=== PATIENT | female | born 1955 | race Caucasian/White ===

== ENCOUNTER 2019-11-23 10:00 | Outpatient (RCR) | payer MEDICARE, OTHER, SELFPAY ==
--- NOTE | 2019-11-02 09:47 | PTOPEVAL ---
INITIAL PHYSICAL THERAPY EVALUATION and PLAN OF CARE Thank you for referring Evelyne to [facility] [place] [facility] [place]. Please review, sign, date and return this plan of care ASHELY. She will be seen 2x/wk x 4 wks in physical therapy. I agree with and certify that the following plan of care is medically necessary. Referring Physician Date Admitting Provider: Attending Provider: Jazz Corrales, PA Referring Provider: *PT Outpatient Evaluation Start: 11/02/19 08:32 Freq: Status: Active Protocol: Document 11/02/19 08:32 SUNI (Rec: 11/02/19 09:46 SUNI [id number]) Therapy Assessment Status Assessment Status Assessment Status Evaluation Outpatient Past Medical History Neurological History Hx Neurological Disorders No Significant History Cardiovascular History Hx Hypercholesterolemia Yes Respiratory History Hx Respiratory Disorders No Significant History Gastrointestinal History Hx Gastroesophageal Reflux Disease Yes Genitourinary History Hx Genitourinary Disorders No Significant History Musculoskeletal History Hx Back Pain Yes Hx Orthopedic Surgery Yes: R shoulder surgery - tear present,cleaned out joint Hx Other Musculoskeletal Disorders Yes: occasional neck pain, L OA-injections, R biceps pain Endocrine History Hx Endocrine Disorders No Significant History Evaluation Information Problem Diagnosis R upper extremity pain Onset April 2019 Subjective Information Reached out to catch stove Query Text:As Reported By Patient/ that was being moved out of Family her basement. The stove began to fall off of ángel - quickly reached out to try and catch the stove. Sharp pain felt in R biceps area. Will occasionally feel the discomfort with moving pillow or covers while in bed. When working on phone - will feel discomfort in R shoulder. When lying on L side - will feel pinching sensation in R shoulder area. Diagnostic Tests X-Rays For This Problem No MRI For This Problem No Prior Level of Function Activity Level (Last 3 Months) Occupation retired Hand Dominance Right Medications Home Meds (Include: OTC, RX, Vitamins, prilosec, lipitor, baby Herbals, Dose, Route,and Frequency) aspirin, vitamin D3 Query Text:Home Med Entries Will No Longer Recall From Past Visits. Home Meds Must Be Re-entered With Each Visit.
--- NOTE | 2019-11-23 10:56 | PTOPEVAL ---
PHYSICAL THERAPY DISCHARGE SUMMARY Thank you for referring Evelyne to [facility]. She was seen for 7 visits in PT. She has met most goals set. She is compliant and competent with her HEP. Will d/c her from PT at this time. I agree with Evelyne's discharge from PT. Referring Physician Date Admitting Provider: Attending Provider: Jazz Corrales, PA Referring Provider: *PT Outpatient Evaluation Start: 11/02/19 08:32 Freq: Status: Active Protocol: Document 11/23/19 09:46 SUNI (Rec: 11/23/19 10:55 SUNI [id number]) Therapy Assessment Status Assessment Status Assessment Status Discharge Evaluation Information Problem Subjective Information Evelyne reports still having R Query Text:As Reported By Patient/ anterior soreness discomfort Family at times. She will still have discomfort with pulling covers over her with her R UE. No difficulty with HEP. Pain Assessment Timing of Pain Assessment Timing of Pain Assessment Assessment Pain Scale Pain Scale Used Numeric (1 - 10) Self Report Pain Assessment Right Upper Arm(s) Reported Pain Level 1 Current Pain Intensity 1 Lowest Pain Intensity 0 Greatest Pain Intensity 3 Pain Score Pain Score 1: Self Report Upper Extremity Range of Motion Scapular/ Shoulder Range of Motion Bilateral Reason Not Measured WNL/Right Scapular/Shoulder Range of Motion full R shoulder/g-h jt AROM Comments remains present Upper Extremity Muscle Strength Testing Scapular/Shoulder Bilateral Shoulder Flexion Strength 5 Normal Shoulder Extension Strength 5 Normal Shoulder Abduction Strength 5 Normal Shoulder Medial Rotation Strength 5 Normal Shoulder Lateral Rotation Strength 5 Normal Shoulder Strength Comments some R biceps region discomfort still present with resisted R ER PT Clinical Summary Clinical Summary Protocol: PTEVCODE Clinical Summary Quick DASH 18.2% Evelyne has maintained full R g-h jt ROM, gained R g-h jt and scapular strength, and has maintained functional abilities. She is at end point with PT at this time. She is compliant and competent with HEP which she is to continue performing.
== END 2020-01-01 16:05 | disposition home or self-care (01) ==
LOC: ANHHIPT 10:00
PROVIDERS: Visit Provider Physician Assistant
DX: M79.601 Pain in right arm (principal); G89.29 Other chronic pain
CPT/HCPCS: 97110; 97140; 97161

== ENCOUNTER → 2020-07-23 08:17 | Outpatient (CLI) | payer MEDICARE, OTHER, SELFPAY ==
--- NOTE | ~2020-07-23 | MR_ITS ---
EXAMINATION: MR shoulder RT wo con DATE: 07/23/2020 09:15 INDICATION: Progressive right shoulder pain and limited range of motion since injury one year prior. TECHNIQUE: Magnetic resonance imaging (MRI) of the right shoulder was performed without intravenous c ontrast. Sequences included axial PD-weighted FS FSE, coronal oblique PD-weighted FS FSE, coronal obl ique T2-weighted FS FSE, sagittal PD-weighted FS FSE, and sagittal T1-weighted SE. COMPARISON: None. FINDINGS: Coracoacromial arch: The acromion undersurface is curved in morphology (type II). The acromion appears thinner than typica l suggesting prior acromioplasty. The coracoacromial ligament is normal. Mild acromioclavicular osteo arthritis with small inferiorly directed osteophytes. Rotator cuff: [place] tracks and magnetic field artifact associated with suture anchors at the greater tuberosity co nsistent with prior rotator cuff repair. There is failure of the repair with complete full-thickness tear of the infraspinatus tendon posterior half of the supraspinatus tendon with partial thickness un dersurface tear of the more anterior supraspinatus tendon. The infraspinatus tear margin is retracted approximately 4-5 cm medially from the greater tuberosity footplate. The teres minor tendon is sheeba l. Mild to moderate subscapularis tendinopathy without discrete tear. There is prominent intramuscula r and epimysial edema at the infraspinatus muscle belly which is retracted medially. No significant f atty atrophy appreciated within the rotator cuff musculature. Biceps tendon, glenoid labrum and glenohumeral cartilage: Tenodesis of the long head of the biceps tendon which is anchored at the cephalad aspect of the inter tubercular groove. The more distal tendon remains normal. Glenohumeral osteoarthritis with partial th ickness cartilage loss without degenerative subarticular changes at the glenoid and with mild irregul arity to the articular cortex slightly anteromedial to the apex of the humeral head. Superior glenoid labrum appears small posterior labrum appears diminutive to absent consistent with history of prior labral tear and subsequent debridement. Fluid: Small glenohumeral joint effusion with extension of fluid through the full-thickness rotator cuff tea r into the subacromial/subdeltoid bursa and subsequently into the acromioclavicular joint space. Ther e is thickened synovium at the axillary recess of the joint space. No discrete loose osteochondral nelli dies identified. Bones: There is posterior superior subluxation of the humeral head with respect to the glenoid with secondar y narrowing of the subacromial space. No fracture. There is an 11 x 11 x 13 mm region of increased fl uid signal with low signal intensity rim suggesting degenerative subarticular cystic change underlyin g the anterosuperior rim of the glenoid. Marrow signal is otherwise normal with no fracture or pathol ogic marrow replacing process. IMPRESSION: 1. Postoperative change of prior acromioplasty and rotator cuff repair with recurrent full-thickness tear of the infraspinatus and posterior supraspinatus tendons. 2. Small superior and diminutive to absent posterior glenoid labrum consistent with prior tear and daniels bsequent debridement. 3. Mild acromioclavicular and mild glenohumeral osteoarthritis with moderate grade chondromalacia the glenoid and high-grade chondral malacia near the apex of the humeral head. 4. Intact appearing bicipital tenodesis. Reviewed, dictated and finalized at location B. IMPRESSION: 1. Postoperative change of prior acromioplasty and rotator cuff repair with rec urrent full-thickness tear of the infraspinatus and posterior supraspinatus ten dons. 2. Small superior and diminutive to absent posterior
== END ==
PROVIDERS: Visit Provider Orthopaedic Surgery
DX: S46.011D Strain of muscle(s) and tendon(s) of the rotator cuff of right shoulder, subsequent encounter (principal); X58.XXXD Exposure to other specified factors, subsequent encounter; M19.011 Primary osteoarthritis, right shoulder
CPT/HCPCS: 73221

== ENCOUNTER 2021-01-14 09:00 | Outpatient (RCR) | payer MEDICARE, OTHER, SELFPAY ==
--- NOTE | 2020-10-22 15:56 | PTOPEVAL ---
INITIAL PHYSICAL THERAPY EVALUATION and PLAN OF CARE Thank you for referring Evelyne Lowry to [facility].? Evelyne is scheduled to be seen for physical therapy? 2x/week for 4 weeks. Please review, sign, date and return this plan of care ASHELY. I agree with and certify that the following plan of care is medically necessary. Referring Physician Date Admitting Provider: Attending Provider: Phan Art MD Referring Provider: *PT Outpatient Evaluation Start: 10/22/20 14:39 Freq: Status: Active Protocol: Document 10/22/20 14:35 SUNI (Rec: 10/22/20 15:55 SUNI [id number]) Therapy Assessment Status Assessment Status Assessment Status Evaluation Outpatient Past Medical History Past Medical History Source of Past Medical History Recalled from Previous Visit, Confirmed with Patient/Family Neurological History Hx Neurological Disorders No Significant History Cardiovascular History Hx Hypercholesterolemia Yes Respiratory History Hx Respiratory Disorders No Significant History Gastrointestinal History Hx Gastroesophageal Reflux Disease Yes Genitourinary History Hx Genitourinary Disorders No Significant History Musculoskeletal History Hx Back Pain Yes Hx Orthopedic Surgery Yes: R shoulder surgery - tear present,cleaned out joint Hx Other Musculoskeletal Disorders Yes: occasional neck pain, L OA-injections, R biceps pain Endocrine History Hx Endocrine Disorders No Significant History Evaluation Information Problem Diagnosis s/p R reverse shoulder arthroplasty Onset 10/01/2020 Subjective Information Took sling off 10/17/2020 - Query Text:As Reported By Patient/ doing okay with it off - will Family get some soreness - will ice it when this happens. Sleeping - okay - will wake up if arm gets in the wrong position - can go back to sleep okay. Soreness when wakes up - goes away within 1/ 2 hour. Some difficulty with tucking shirt in, pulling pants up. 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
--- NOTE | 2020-11-10 12:25 | PCPTNOTE ---
Patient called & cancelled scheduled appointment this date due to inclimate weather.
--- NOTE | 2020-11-17 14:34 | PTOPEVAL ---
PHYSICAL THERAPY RE-EVALUATION and UPDATED PLAN OF CARE Thank you for referring Evelyne Tang to [facility] [place].? She is scheduled to be seen for physical therapy?2x/week for 6 weeks. She is making progress towards initial goals set. Please review, sign, date and return this updated plan of care ASHELY. I agree with and certify that the following plan of care is medically necessary. Referring Physician Date Admitting Provider: Attending Provider: Phan Art MD Referring Provider: Therapy Assessment Status Assessment Status Assessment Status Re-evaluation Evaluation Information Problem Diagnosis s/p R reverse shoulder arthroplasty Subjective Information Evelyne saw MD/surgeon - he is Query Text:As Reported By Patient/ pleased with her progress. Family New order received. Pain Assessment Self Report Pain Assessment Right Shoulder(s) Reported Pain Level 1 Lowest Pain Intensity 1 Greatest Pain Intensity 3 Upper Extremity Range of Motion Scapular/ Shoulder Range of Motion Right Shoulder Flexion - Active 92 Shoulder Flexion - Passive 146 Scapular/Shoulder Range of Motion ER in neutral - 63 - active Comments passive flexion - on reciprocal pulleys Supine lying - active 140 deg flexion - passive 146 PT Clinical Summary Clinical Summary Protocol: PTEVCODE PT Clinical Summary SPADI - Pain score - 26% Disability score - 36% Total score - 32% Evelyne is progressing s/p R TSA with pain reduction and ROM gains with flexion and ER. Increased gains made with PROM in R g-h jt flexion as compared with active ROM gains . ER in within MD parameters. She is doing well with capsular strengthening. New MD orders were received this date and will continue to progress as per protocol. PT Services Indicated Yes Rehabilitation Potential Good Patient/Caregiver's Personal Goals for regain use of R UE Rehabilitation Potential Barriers to Goal Achievements None Support Requirements For Optimal None [place] Patient/Caregiver Informed of Benefits/ Yes Risks of Rehabilitation Patient/Caregiver Participated in Plan Yes of Care Patient/Caregiver Agreed with Problem Yes List/POC/Goals Tr
--- NOTE | 2020-11-19 08:31 | PCPTNOTE ---
Patient called & cancelled scheduled appointment for tomorrow due to needing to go for 2nd COVID vaccine.
--- NOTE | 2020-12-22 16:49 | PTOPEVAL ---
PHYSICAL THERAPY RE-EVALUATION/PROGRESS NOTE Thank you for referring Evelyne Lowry to [facility].? Evelyne has been seen x 16 visits. She has made ROM, strength, and functional gains with R UE/shoulder. Please advise if you wish for further PT following upcoming MD visit. If further treatment is desired - I will send a new plan of care for signature. Referring Physician Date Admitting Provider: Attending Provider: Phan Art MD Referring Provider: Therapy Assessment Status Assessment Status Assessment Status Re-evaluation Evaluation Information Problem Diagnosis s/p R reverse shoulder arthroplasty Subjective Information Evelyne states that she was Query Text:As Reported By Patient/ able to mop the floor for a Family little bit due to discomfort, then stops. Still unable to make bed or bean picker a cat. But she is able to use R UE on stair handrail as well as hang up items. Hurts to shake out blankets - points to biceps region. Now able to use mouse on computer better. Pain Assessment Timing of Pain Assessment Timing of Pain Assessment Assessment Pain Scale Pain Scale Used Numeric (1 - 10) Self Report Pain Assessment Right Shoulder(s) Reported Pain Level 0 Pain Description Sharp Lowest Pain Intensity 0 Greatest Pain Intensity 4 Pain Score Pain Score 0: Self Report Upper Extremity Range of Motion Scapular/ Shoulder Range of Motion Right Shoulder Flexion - Active 128 Shoulder Flexion - Passive 158 Shoulder Extension - Active 55 Shoulder Abduction - Active 90 Shoulder Medial Rotation - Active 45 Shoulder Lateral Rotation - Active 70 Shoulder Lateral Rotation - Active back of head Query Text:Reach Behind the Head Scapular/Shoulder Range of Motion ER in neutral - 68 - active Comments passive flexion - on reciprocal pulleys Supine lying - active 155 deg flexion Left Shoulder Flexion - Active 160 Shoulder Extension - Active 65 Shoulder Abduction - Active 165 Shoulder Medial Rotation - Active T8 Query Text:Reach Behind the Back Shoulder Lateral Rotation - Active T3 Query Text:Reach Behind the Head Scapular/Shoulder Range of Motion ER in neutral - 80 Comments Upper Extremity Muscle Strength Testing Scapular/Shoulder Right Shoulder Flexion Strength 4- Good - Shoulder Extension Strength 4 Good Shoulder Abduction Strength 4- Good - Sh
--- NOTE | 2021-01-05 10:43 | PCPTNOTE ---
Patient did not show up for scheduled appointment this date. Phone call made - left message.
--- NOTE | 2021-01-05 15:37 | PCPTNOTE ---
PHYSICAL THERAPY UPDATED PLAN OF CARE New orders have been received to continue with PT for Evelyne Tang. Her plan of care has been updated and she will continue to be seen in PT 2x/wk x 4 wks. I agree with and certify that the following plan of care is medically necessary. Referring Physician Date Attending Provider: Phan Art MD
== END 2021-01-20 23:59 | disposition home or self-care (01) ==
LOC: ANHHIPT 09:00
DX: Z48.89 Encounter for other specified surgical aftercare (principal); M75.121 Complete rotator cuff tear or rupture of right shoulder, not specified as traumatic
CPT/HCPCS: 97110; 97140; 97161

== ENCOUNTER 2021-01-29 14:28 | Outpatient (CLI) | payer MEDICARE, OTHER, SELFPAY ==
--- NOTE | ~2021-01-29 | DEXA_ITS ---
Bone Density Report Name: Evelyne Lowry Age: 65 Sex: Female Ethnicity: White Date of : 1955 Indication: postmenopausal; Referring Provider: Antoni, Jazz Study: Bone densitometry was performed. Exam Date: January 29, 2021 Accession number: [id number] Bone Density: Region BMD T-score Z-score Classification AP Spine (L1-L4) 0.908 -1.3 0.7 Osteopenia Femoral Neck (Left) 0.701 -1.3 0.3 Osteopenia Total Hip (Left) 0.835 -0.9 0.5 Normal Total Hip Bilateral Avg 0.797 -1.2 0.2 Osteopenia Femoral Neck (Right) 0.673 -1.6 0.1 Osteopenia Total Hip (Right) 0.759 -1.5 -0.1 Osteopenia World Health Organization criteria for BMD impression classify patients as: Normal (T-score at or above -1.0), Osteopenia (T-score between -1.0 and -2.5), or Osteoporosis (T-score at or below -2.5). 10-year Fracture Risk(1): Major Osteoporotic Fracture 8.8% Hip Fracture 1.0% Reported Risk Factors: [place] (), Neck BMD=0.673, BMI=35.9 (1) FRAX(R) Version 3.08. Fracture probability calculated for an untreated patient. Fracture probability may be lower if the patient has received treatment. Clinical Information Provided by Patient: Has used the following medications: Calcium Patient maximum height was 62 Menopause Age: 48 No regular weight bearing exercise Does not regularly consume dairy products Drinks caffeinated beverages Onset of menses at age 13 Number of children 2 Impression: The patient has low bone mass, based on the Right Femoral Neck T-score. The patient has an estimated ten-year risk of hip fracture of 1% and an estimated ten-year risk of major fracture of 8.8%, based on the WHO FRAX algorithm. Discussion: BONE DENSITY IS LOW AT ONE OR MORE SKELETAL SITES. This patient's lowest T-score is low at one or more skeletal sites. It meets the World Health Organization's (WHO) criteria for ?low bone mass? (T-score between -1.0 and -2.5). The patient's 10-year risk of fracture as calculated by FRAX is less than the threshold where pharmacological therapy is recommended by the National Osteoporosis Foundation (NOF). However, all treatment decisions require clinical judgment and consideration of individual patient factors, including patient preferences, comorbidities, previous drug use, risk factors not captured in the FRAX model (e.g., frailty, falls, vitamin D deficiency, increased bone turnover, interval significant decline in bone density) and possible under or overestimation of fracture risk by FRAX. The patient should follow a healthful lifestyle (good nutrition with adequate calcium and vitamin D, and appropriate weight-bearing exercise). Follow-Up: Consider repeating this study in 2 to 3 years to reassess this patient's status, or sooner if there is some new clinical indication. Reported by: MAN on
--- NOTE | ~2021-01-29 | MM_ITS ---
EXAMINATION: MM screening alexandru BI w maddy HISTORY: Screening TECHNIQUE: Craniocaudal and mediolateral oblique 3-D tomosynthesis images were obtained and synthetic 2-D images were generated. CAD analysis was submitted and interpreted. COMPARISON: No prior mammogram is available for comparison at this institution. BREAST PARENCHYMAL COMPOSITION: There are scattered areas of fibroglandular density. FINDINGS: There is no evidence of suspicious mass, calcification, or architectural distortion to sugg est malignancy in either breast. There has been no suspicious interval change. IMPRESSION: 1. No mammographic evidence of malignancy. 2. Recommend routine screening mammography in one year. BI-RADS Category 1: Negative Reviewed, dictated and finalized at location A.
== END 2021-01-29 14:29 | disposition home or self-care (01) ==
LOC: ANHIMG 14:36
PROVIDERS: Visit Provider Physician Assistant
DX: Z12.31 Encounter for screening mammogram for malignant neoplasm of breast (principal); M85.88 Other specified disorders of bone density and structure, other site; Z78.0 Asymptomatic menopausal state; M85.852 Other specified disorders of bone density and structure, left thigh; M85.851 Other specified disorders of bone density and structure, right thigh
CPT/HCPCS: 77063; 77067; 77080

== ENCOUNTER 2021-02-04 10:00 | Outpatient (RCR) | payer MEDICARE, OTHER, SELFPAY ==
--- NOTE | 2021-01-21 07:53 | PCPTNOTE ---
The treatment documented on this account is a continuation of the treatment documented on visit number [id number]. Please see documentation on both accounts to view progress. The Plan of Care has been transitioned and updated within the new V#. I have addressed and agree with the discipline specific Problems, Interventions, and Goals for the current certification period. Completed interventions, outcomes, and problems have been marked as Inactive to facilitate the copying of the Care plan routine for recurring accounts.
--- NOTE | 2021-01-26 10:37 | PCPTNOTE ---
Patient did not show to appointment this date. Patient said last week she would see us on Tuesday instead of Tuesday. Patient might have been confused on schedule. Patient was call and voicemail was left by office staff.
--- NOTE | 2021-02-04 13:18 | PTOPEVAL ---
PHYSICAL THERAPY DISCHARGE SUMMARY Thank you for referring Evelyne Tang to [facility].? Evelyne has been seen x 24 visits. She is needing to cancel the remainder of her PT visits due to family matters. She has increased active R g-h jt ROM and strength, decreased pain levels, and increase with functional abilities. Most goals have been met. She is being [facility] to [facility] which she performs well. I agree with and certify that the following plan of care is medically necessary. Referring Physician Date Admitting Provider: Attending Provider: Phan Art MD Referring Provider: Therapy Assessment Status Assessment Status Assessment Status Discharge Evaluation Information Problem Diagnosis s/p R reverse TSA Onset 10/01/2020 Subjective Information Evelyne stated that she needs Query Text:As Reported By Patient/ to cancel the rest of her Family appointments due to needing to help take care of her mother. She said that she is doing well with her exercises at home. Still having some difficulty with activities such as throwing bread to the birds, lifting heavier objects , etc with R UE. Pain Assessment Self Report Pain Assessment Right Shoulder(s) Reported Pain Level 1 Lowest Pain Intensity 0 Greatest Pain Intensity 2 Upper Extremity Range of Motion Scapular/ Shoulder Range of Motion Right Shoulder Flexion - Active 145 Shoulder Extension - Active 68 Shoulder Abduction - Active 122 Shoulder Medial Rotation - Active 75 Shoulder Lateral Rotation - Active 65 Scapular/Shoulder Range of Motion neutral ER - 68 deg Comments Upper Extremity Muscle Strength Testing Scapular/Shoulder Right Shoulder Flexion Strength 3+ Fair + Shoulder Extension Strength 5 Normal Shoulder Abduction Strength 3+ Fair + Shoulder Medial Rotation Strength 5 Normal Shoulder Lateral Rotation Strength 3+ Fair + Palpation Assessment Palpation Palpation decreased soft tissue tension with R upper quadrant PT Clinical Summary Clinical Summary Protocol: PTEVCODE PT Clinical Summary SPADI - Pain score - 14% Disability score - 10% total score - 12% Evelyne has made further gains with active R g-h jt ROM, strength, and function. She is compliant and performs HEP well which she is to continue performing on a regular basis.
== END 2021-02-16 11:04 | disposition home or self-care (01) ==
LOC: ANHHIPT 10:00
DX: Z48.89 Encounter for other specified surgical aftercare (principal); M75.121 Complete rotator cuff tear or rupture of right shoulder, not specified as traumatic
CPT/HCPCS: 97110

== ENCOUNTER 2022-03-22 08:00 | Outpatient (RCR) | payer MEDICARE, OTHER, SELFPAY ==
--- NOTE | 2022-01-27 14:10 | PTOPEVAL ---
PHYSICAL THERAPY INITIAL EVALUATION. Thank you for referring Evelyne Lowry to [facility].? The patient is scheduled to be seen for therapy? 2x/week for 8 weeks. Please review, sign, date and return this plan of care ASHELY. I agree with and certify that the following plan of care is medically necessary. 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 She Family states she received home health PT for 1.5 weeks after surgery and has not done any other therapy outside of that. She states other people tell her that her knee shoulder bend more than it does. Pt states she has not been doing her exercises since finishing home health. Prior Level of Function Pain Assessment Self Report Pain Assessment Left Knee(s) Reported Pain Level 1 Pain Description Aching Pain Frequency Acute Lowest Pain Intensity 1 Greatest Pain Intensity 4 Pain Aggravating Factors Prolonged Position,Stair Climbing Lower Extremity Range of Motion Limitations Pain,Soft Tissue Restriction Knee Range of Motion Left Knee Flexion Range of Motion - Active 80 Knee Flexion Range of Motion - Passive 94 Knee Extension Range of Motion - Active -3 Knee Range of Motion Comments R knee active ROM 0-134 Palpation Assessment Palpation tender just inferior to the medial joint line. Pt stands and rest in supine with hips in B ER. Lack of patellar mobility on L LE. Keloid scar formation Balance Assessment 5 Time Sit to Stand Time in Seconds 12 5 Time Sit to Stand Comments without use of the UEs, L LE Query Text:Normative Data: If Greater placed anterior Gait Assessment Gait Pattern Antalgic Gait Gait Pattern Observed Trunk Lateral Lean - Right Other Gait Observations L LE hip external rotation and abduction during swing phase, decrease gait speed, step length, and stride length. Limited knee flexion during swing Safety Assessment Factors A
--- NOTE | 2022-02-15 09:56 | PTOPEVAL ---
PHYSICAL THERAPY PROGRESS REPORT. Thank you for referring Evelyne Lowry to [facility] [place].? The patient is scheduled to be seen for therapy? 2x/week for 4 weeks. Please review, sign, date and return this plan of care ASHELY. I agree with and certify that the following plan of care is medically necessary. 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 Shes Family states she can bend her knee more, but knows it is still less than what she shoulder be doing. Her pain is well controlled, she states she only has pain when she is working on increasing knee flexion. Pt reports good compliance with her HEP. Pt states getting in and out of her truck has gotten easier. She would like to increase the distance she can walk her dog , also be able to return to softball and bowling. Pain Assessment Self Report Pain Assessment Left Knee(s) Reported Pain Level 0 Greatest Pain Intensity 0 Lower Extremity Range of Motion Limitations Pain,Soft Tissue Restriction Knee Range of Motion Left Knee Flexion Range of Motion - Active 97 Knee Flexion Range of Motion - Passive 112 Knee Extension Range of Motion - Active -2 Knee Range of Motion Comments R knee active ROM 0-134 Lower Extremity Muscle Strength Testing Gross Lower Extremity Strength B LE grossly 4/5 L knee flexion extension 4-/5 L glute med 3/5 R glute med 3/5 Palpation Assessment Palpation Reports decreased sensation on the lateral aspect of the anterior knee joint. 1cm scap on the distal 1/3 of the incision, pt states she leaned on her truck the wrong way. Incision looks pink, clean, and keloid. Balance Assessment Time in Seconds 11 5 Time Sit to Stand Comments Initially: 12s without use of Query Text:Normative Data: If Greater the UEs, L LE placed anterior Than 15 Seconds, 74% Increase Risk for 02/15/22: 11s without use of Recurrent Falls UEs, LE places equal Gait Assessme
--- NOTE | 2022-03-22 08:40 | PTOPEVAL ---
PHYSICAL THERAPY PROGRESS REPORT AND DISCHARGE SUMMARY. Thank you for referring Evelyne Lowry to [facility] [place]Note 2[facility]? The patient is to be discharged from skilled therapy services at this time. Please review, sign, date and return this plan of care ASHELY. I agree with and certify that the following plan of care is medically necessary. 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 She reports continued difficultly and awkward feelings going down stairs. She reports mild medial knee stiffness first this in the morning, this decreases quickly with movement. Pt states she was able to get onto to the floor and clean yesterday. Pain Assessment Pain Score 0: Self Report Knee Range of Motion Left Knee Flexion Range of Motion - Active 110 Knee Flexion Range of Motion - Passive 122 Knee Extension Range of Motion - Active -2 Knee Extension Range of Motion - Passive 0 Knee Range of Motion Comments R knee active ROM 0-134 Lower Extremity Muscle Strength Testing Gross Lower Extremity Strength skyler hip flexion 5/5 skyler knee flexion/extension 4+/ 5 L glute med 4/5 R glute med 4+/5 Palpation Assessment Palpation Continues to report decreased sensation on the lateral aspect of the anterior knee joint. Incision looks pink, clean, and keloid. Mild tenderness reports along the length of her incision site Balance Assessment 5 Time Sit to Stand Comments Initially: 12s without use of Query Text:Normative Data: If Greater the UEs, L LE placed anterior Than 15 Seconds, 74% Increase Risk for 02/15/22: 11s without use of Recurrent Falls UEs, LE places equal 03/22/22: 11s without the use of UEs, equal weight distribution Gait Assessment Ambulation Assistive Devices None Gait Pattern Observed Trunk Lateral Lean - Right Other Gait Observations Good gait speed, with equal step length, and stride length
== END 2022-03-22 09:21 | disposition home or self-care (01) ==
LOC: ANHHIPT 08:00
DX: Z47.1 Aftercare following joint replacement surgery (principal); Z96.652 Presence of left artificial knee joint
CPT/HCPCS: 97110; 97112; 97140; 97161; 97530

== ENCOUNTER 2022-05-19 08:43 | Outpatient (CLI) | payer MEDICARE, OTHER, SELFPAY ==
--- NOTE | ~2022-05-19 | MM_ITS ---
EXAMINATION: MM screening alexandru BI w maddy HISTORY: Screening TECHNIQUE: Craniocaudal and mediolateral oblique 3-D tomosynthesis images were obtained and synthetic 2-D images were generated. CAD analysis was submitted and interpreted. COMPARISON: 01/29/2021 BREAST PARENCHYMAL COMPOSITION: The breasts are almost entirely fatty. FINDINGS: There is no evidence of suspicious mass, calcification, or architectural distortion to sugg est malignancy in either breast. There has been no suspicious interval change. IMPRESSION: 1. No mammographic evidence of malignancy. 2. Recommend routine screening mammography in one year. BI-RADS Category 1: Negative Reviewed, dictated and finalized at location A.
== END 2022-05-19 08:44 | disposition home or self-care (01) ==
PROVIDERS: PCP Physician Assistant; Visit Provider Physician Assistant
DX: Z12.31 Encounter for screening mammogram for malignant neoplasm of breast (principal)
CPT/HCPCS: 77063; 77067

== ENCOUNTER 2024-01-09 09:30 | Outpatient (RCR) | payer MEDICARE, OTHER, SELFPAY ==
--- NOTE | 2023-11-30 09:25 | PTOPEVAL1 ---
Assessment and note entered by Natacha Venegas, PT Evaluation Information Assessment Status Evaluation Diagnosis left knee pain and instabilty Therapy condition pain in left knee, stiffness left knee Oth. abnormalities of gait and mobility Reported Pain Level Pain Score 0,0: Self Report Assessment PT Clinical Summary Pt presents with c/o left knee pain and weakness. History of TKA ~2 years ago without complications, history of back pain as well. Reports functionally difficulty with stairs, and standing/ walking more than 15 minutes due to weakness and pain. Pt demo's decreased hip strength, decreased patellar mobility, decreased flexibility on LLE compared to RLE, abnormal ambulation patterns with occasional tripping that is self corrected at the moment. Pt will greatly benefit from physical therapy in order to address deficits, improve pain and function to allow safest, highest level of independence. Plan of Care Interventions Electrical Stimulation,Gait Training,Hot Pack/Cold Pack,Manual Therapy,Neuro Re-education, Therapeutic Activities,Therapeutic Exercise,Self- Care/Home Management PT Services Indicated Yes Treatment Frequency and 2x weekly x 6 weeks Duration These treatments will address the objective and functional deficits as defined above. The patient will be advanced safely and appropriately in order for the patient to progress towards his/her prior level of function. Additional exercises will be introduced and as well as a comprehensive home exercise program upon discharge, if needed, ?to ensure carryover of functional gains achieved in the clinic. This treatment plan has been reviewed and agreement upon by the patient.
--- NOTE | 2023-11-30 09:25 | OPREHPOC ---
Outpatient Therapy Plan of Care This is a Multidisciplinary Plan of Care that may contain components documented by all disciplines (PT, OT, and ST.) PT Problem 1 PT Problem #1 Knowledge Deficit PT Goal 1 Goal Pt will be independent in HEP Pt will verbalize understanding of diagnosis and prognosis Target Visit 8 PT Problem 2 PT Problem #2 Pain PT Goal 1 Goal Pt will report greatest pain level at 3/10 or less to improve ADLs and activities Target Visit 8 PT Goal 2 Goal Pt will report resolution of pain to return to PLOF Target Visit 12 PT Problem 3 PT Problem #3 Impaired Range of Motion PT Goal 1 Goal Pt will demo AROM 0-130 Left knee Target Visit 12 PT Problem 4 PT Problem #4 Impaired Strength PT Goal 1 Goal Pt will demo strength of 4/5 in all tested planes Target Visit 8 PT Goal 2 Goal Pt will demo strength of 4+/5 in all tested planes Target Visit 12 PT Problem 5 PT Problem #5 Impaired Gait PT Goal 1 Goal Pt will demo appropriate gait with appropriate dorsiflexion, appropriate clearance, and no tripping in 2 min walk test Target Visit 12 PT Goal 2 Goal Pt will demo ability to ascend and descend 14 steps with bilat railings and no guarding Target Visit 12
--- NOTE | 2024-01-10 08:38 | PTOPDC ---
Assessment and note entered by Natacha Venegas, PT Assessment Status Discharge Diagnosis left knee pain and instabilty Subjective Information Pt reports hasn't tried long distances for her knee yet. Got down on the floor and was able to get back up from the floor herself. Is doing a little better standing long periods, thinks can stand about an hour before has to sit down. States is now able ot go up basement steps without pulling myself up with the hand rail Self-perceived: 25% improved Reported Pain Level Pain Score 0,0: Self Report Assessment PT Clinical Summary Pt has attended therapy consistently for her left knee and back pain and mobility deficit. Pt's pain in both has reduced to at worst 3/10, she reports she has easier time standing and walking, but hasn't tested herself for long distance walking as of yet. Her tests show improved ROM, strength, flexibility, and improved ambulation with less balance deficit overall. She has partially met her objective goals, however reports only 25% improvement and her LEGS score is roughly the same . She states she understands her home exercises and the updates made and reports understanding when to return to therapy if she does not continue to progress independently. Thus patient is being discharged from POC. PT Services Indicated Knee and back pain POC completed
== END 2024-01-10 14:12 | disposition home or self-care (01) ==
LOC: ANHHIPT 09:30
PROVIDERS: PCP Physician Assistant; Visit Provider Physician Assistant
DX: M25.562 Pain in left knee (principal); G89.29 Other chronic pain
CPT/HCPCS: 97110; 97112; 97116; 97140; 97162; 97750

== ENCOUNTER 2024-03-12 10:25 | Outpatient (CLI) | payer MEDICARE, OTHER, SELFPAY ==
--- NOTE | ~2024-03-12 | MM_ITS ---
EXAMINATION: MM screening alexandru BI w maddy HISTORY: Screening TECHNIQUE: Craniocaudal and mediolateral oblique 3-D tomosynthesis images were obtained and synthetic 2-D images were generated. CAD analysis was submitted and interpreted. COMPARISON: Comparison to multiple prior studies sequentially, with oldest reviewed study dated 02/2021. BREAST PARENCHYMAL COMPOSITION: Not Dense: Breast are almost entirely fatty. FINDINGS: There is no evidence of suspicious mass, calcification, or architectural distortion to sugg est malignancy in either breast. There has been no suspicious interval change. IMPRESSION: 1. No mammographic evidence of malignancy. 2. Recommend routine screening mammography in one year. BI-RADS Category 1: Negative Reviewed, dictated and finalized at location B.
== END 2024-03-12 10:26 | disposition home or self-care (01) ==
LOC: ANHIMG 10:28
PROVIDERS: PCP Physician Assistant; Visit Provider Physician Assistant
DX: Z12.31 Encounter for screening mammogram for malignant neoplasm of breast (principal)
CPT/HCPCS: 77063; 77067

== ENCOUNTER 2024-08-20 12:30 | Outpatient (RCR) | payer MEDICARE, OTHER, SELFPAY ==
--- NOTE | 2024-05-30 16:40 | PTOPEVAL1 ---
Assessment and note entered by Natacha Venegas, PT Evaluation Information Assessment Status Evaluation Diagnosis low back ICD-10 Condition Codes (PT) Pain in low back M54.50,Difficulty Walking R26.2, R26.9,Weakness R53.1 Onset with the last few months Subjective Information Pt reports fell and landed on her back. Had helped getting up from some gentlemen coming straight forward. States was in bed multiple days because of pain. Went to Urgent care, x-rays were negative for fracture. Pt reports when laying or sitting pain is improved . Standing and walking increases pain. Can stand about 5 minutes before needing to sit down. Pain is across both sides of the lumbar spine, denies pain into the legs. Hasn't been able to do her exercises because of her back pain Notes her friend walks behind her wiht arms out to catch her just in case she falls. Daughter in law had to grab onto her shirt [place] times [place] the [place] recently to get her to slow down because her feet were going too fast sometimes Reported Pain Level Pain Score 5: Self Report Assessment PT Clinical Summary Pt presents for therapy for low back pain after a fall a few months ago. Reports is unable to stand and walk more than 5 minutes now without needing to sit. Pt demo's decreased lumbar ROM in multiple planes, abnormal pelvic alignment, decreased core and lumbopelvic strength, increased tone skyler paraspinals, abnormal gait and balance deficits effecting her safety and functional mobility. Pt will greatly benefit from physical therapy to address deficits, improve pain, improve balance and gait to optimize safe and functional independence. Plan of Care Interventions Electrical Stimulation,Gait Training,Hot Pack/Cold Pack,Manual Therapy,Mechanical Traction,Patient/ Caregiver Educati,Therapeutic Activities, Therapeutic Exercise,Self-Care/Home Management, Ultrasound PT Services Indicated Yes Treatment Frequency and 2x weekly x 20 visits Duration These treatments will address the objective and functional deficits as defined above. The patient will be advanced safely and appropriately in order for the patient to progress towards his/her prior level of function. Additional exercises will be introduced and as well as a comprehensive home exercise program upon discharge, if needed, ?to ensure carryover of functional gains achieved in the clinic. This treatment plan has been reviewed and agreement upon by the patient.
--- NOTE | 2024-05-30 16:40 | OPREHPOC ---
Outpatient Therapy Plan of Care This is a Multidisciplinary Plan of Care that may contain components documented by all disciplines (PT, OT, and ST.) PT Problem 1 PT Problem #1 Knowledge Deficit PT Goal 1 Goal / Goal Update Pt will be independent in HEP Pt will verbalize understanding of diagnosis and prognosis Target Visit 10 PT Problem 2 PT Problem #2 Pain PT Goal 1 Goal / Goal Update Pt will report greatest pain level at 3/10 or less to improve ADLs and activities Target Visit 10 PT Goal 2 Goal / Goal Update Pt will report resolution of pain to return to PLOF Target Visit 20 PT Problem 3 PT Problem #3 Impaired Range of Motion PT Goal 1 Goal / Goal Update Pt will demo full ROM lumbar spine in all planes Target Visit 10 PT Problem 4 PT Problem #4 Impaired Balance PT Goal 1 Goal / Goal Update Pt will demo Tinetti score of 20 or greater Target Visit 10 PT Goal 2 Goal / Goal Update Pt will demo 5x sit to stand test of 15 seconds or less without use of UEs Target Visit 20
--- NOTE | 2024-06-29 11:19 | OPREHPOC ---
Outpatient Therapy Plan of Care This is a Multidisciplinary Plan of Care that may contain components documented by all disciplines (PT, OT, and ST.) PT Problem 1 PT Problem #1 Knowledge Deficit PT Goal 1 Goal / Goal Update Pt will be independent in HEP Pt will verbalize understanding of diagnosis and prognosis Target Visit 10 Progress Met PT Problem 2 PT Problem #2 Pain PT Goal 1 Goal / Goal Update Pt will report greatest pain level at 3/10 or less to improve ADLs and activities Target Visit 10 Progress Met PT Goal 2 Goal / Goal Update Pt will report resolution of pain to return to PLOF Target Visit 20 PT Problem 3 PT Problem #3 Impaired Range of Motion PT Goal 1 Goal / Goal Update Pt will demo full ROM lumbar spine in all planes - progressed from 50 to 75% Target Visit 10 Progress Partially Met PT Problem 4 PT Problem #4 Impaired Balance PT Goal 1 Goal / Goal Update Pt will demo Tinetti score of 20 or greater Target Visit 10 Progress Met PT Goal 2 Goal / Goal Update Pt will demo 5x sit to stand test of 15 seconds or less without use of UEs - use of RUE on first attempt Target Visit 20 Progress Partially Met PT Problem 5 PT Problem #5 Impaired Vestibular Syste PT Goal 1 Goal / Goal Update Pt will demo no signs or symptoms with Thomas Hallpike testing R or L Target Visit 20 PT Goal 2 Goal / Goal Update Pt will demo ability to personnel training officer partial tandem stance on firm surface with eyes closed to demo improvement in vestibular system and balance. Target Visit 20
--- NOTE | 2024-06-29 11:25 | PTOPPROG ---
Assessment and note entered by Natacha Venegas, PT Evaluation Information Assessment Status Progress Diagnosis low back ICD-10 Condition Codes (PT) Pain in low back M54.50,Difficulty Walking R26.2, R26.9,Weakness R53.1,BPPV right ear H81.11 Onset with the last few months Subjective Information Pt reports feels 30% back to normal with her back. Is able to stand 20 minutes prior to sitting down, usually when standing and talking to neighbor or bowling, recently went down to a 12 lb ball. Reports did fine after last treatment session, woke up with no pain this morning. Feels like is walking better. Friend is no longer walking behind patient with her arms out to catch pt for balance deficits. Does report will get dizzy with turning over in bed. Assessment PT Clinical Summary Pt has attended therapy consistently for her back pain and gait/mobility deficit. She reports significant improvement in her pain levels, with greatest pain rating decreasing from 8/10 to 3/10. She reports ability to stand 20 minutes before needing to sit, which is increased from 5 min at evaluation. Her balance scores have also improved with 11 seconds for 5x sit to stand down from 23 seconds, and Tinetti score improved from 17 to 20 bringing her to moderate risk for falls. Pt demo's dizziness today with turning and reports prior history of BPPV. She states she gets dizzy with turning over in bed as well. Vestibular testing performed with (+) symptoms with R Thomas-Hallpike testing. Pt will benefit from continued therapy with addition of WET ROOM WORKER maneuvers to address BPPV R ear, continue strengthening and stability training for lumbar spine, and improve overall mobility and balance for a safer and more functional level of independence. Plan of Care Interventions Electrical Stimulation,Gait Training,Hot Pack/Cold Pack,Manual Therapy,Mechanical Traction,Patient/ Caregiver Educati,Therapeutic Activities, Therapeutic Exercise,Self-Care/Home Management, Ultrasound Other Interventions WET ROOM WORKER PT Services Indicated Yes Treatment Frequency and Cont 2x weekly x 10 visits Duration These treatments will address the objective and functional deficits as defined above. The patient will be advanced safely and appropriately in order for the patient to progress towards his/her prior level of function. Additional exercises will be introduced and as well as a comprehensive home exercise program upon discharge, if needed, ?to ensure carryover of functional gains achieved in the clinic. This treatment plan has been reviewed and agreement upon by the patient.
--- NOTE | 2024-07-06 10:33 | PCPTNOTE ---
Rehab department called and cancelled patient due to staffing shortage
--- NOTE | 2024-08-20 13:12 | PTOPDC ---
Assessment and note entered by Natacha Venegas, PT Evaluation Information Assessment Status Discharge Diagnosis low back ICD-10 Condition Codes (PT) Pain in low back M54.50,Difficulty Walking R26.2, R26.9,Weakness R53.1,BPPV right ear H81.11 Onset with the last few months Subjective Information Pt reports back pain is about 40% improved overall . Pt reports as far as remembering to keep her belly tight with standing is going so-so. States has not been standing that much. Pt reports walking is a little bit better. Reported Pain Level Pain Score 0,0: Self Report Additional Pain Score Comments Hasn't tested standing long periods to assess how intense pain will get in back. Assessment PT Clinical Summary Pt has attended therapy consistently for her low back pain and gait abnormality and more recently BPPV. She reports feeling 40% improved in her back , shows lumbar ROM 75% without pain, increases in lumbopelvic strength, and reduction of pain to 2/ 10 at greatest report. However she cont to be unable to stand longer than 20 minutes due to her back getting painful and tired. As far as gait abnormality, when patient is focused, she is able to improve her base of support and clear her toes much better. Even so, she is unable to multitask while performing LE tasks such as talking and biking or walking. Has had to stop her LE movement or exercise while answering questions in prior sessions. She does report no longer having dizziness with rolling in bed though this is new. Considering her multi-tasking and poor coordination, and continued difficulty with balance and ambulation despite the progress made, patient may benefit from a neurology consult in order to address/ rule out neurological issues effecting patient function. Plan of Care PT Services Indicated No
== END 2024-08-20 13:51 | disposition home or self-care (01) ==
LOC: ANHHIPT 12:30
PROVIDERS: PCP Physician Assistant; Visit Provider Physician Assistant
DX: M54.50 Low back pain, unspecified (principal); H81.11 Benign paroxysmal vertigo, right ear
CPT/HCPCS: 95992; 97014; 97032; 97110; 97112; 97116; 97140; 97162; 97530; 97750; G0283

== ENCOUNTER 2025-03-13 10:35 | Outpatient (CLI) | payer MEDICARE, OTHER, SELFPAY ==
--- NOTE | ~2025-03-13 | MM_ITS ---
EXAMINATION: MM screening alexandru BI w maddy HISTORY: Screening TECHNIQUE: Craniocaudal and mediolateral oblique 3-D tomosynthesis images were obtained and synthetic 2-D images were generated. CAD analysis was submitted and interpreted. COMPARISON: Comparison to multiple prior studies sequentially, with oldest reviewed study dated 02/2021. BREAST PARENCHYMAL COMPOSITION: Not dense: There are scattered areas of fibroglandular density. FINDINGS: There is no evidence of suspicious mass, calcification, or architectural distortion to sugg est malignancy in either breast. There has been no suspicious interval change. IMPRESSION: 1. No mammographic evidence of malignancy. 2. Recommend routine screening mammography in one year. BI-RADS Category 1: Negative Reviewed, dictated and finalized at location A.
--- OUTSIDE RECORDS SUMMARY | 2025-03-13 12:10 | XMS_ITS | Clinical Summary ---
Author Organization [facility] Address [address], [address] [place] [address] Phone Care Team Providers Care Sodium Methylate Operator Name Role Phone Jazz Corrales PAC Primary Care Provider [phone] Lowell Scahfer DO Unavailable [phone] Allergies Active Allergy Reactions Criticality Noted Date Comments Amoxicillin-Pot Clavulanate Vomiting 06/04/2024 Barium Sulfate Rash,Unknown Medium 12/30/2006 Reaction(s): Rash, itching Medications atorvastatin (LIPITOR) 40 MG Tablet Take 40 mg by mouth. 05/17/2024 Active Cholecalciferol (Vitamin D) 2000 UNIT Tablet Take 2,000 Units by mouth. 02/25/2023 Active omeprazole (PriLOSEC) 40 MG CAPSULE DELAYED RELEASE Take 40 mg by mouth. 11/17/2023 Active aspirin 81 MG Chewable Tablet Take 81 mg by mouth daily. 05/17/2024 Active clobetasol (TEMOVATE) 0.05 % Cream Apply. 02/25/2023 Active Calcium Carb-Cholecalcif franklin (CALCIUM 500 + D PO) Take 1 Tablet by mouth. Active diphenhydrAMINE (Benadryl Allergy) 25 MG Capsule Take 25 mg by mouth. Active [place]-3 Fatty Acids (FISH OIL PO) Take by mouth. Active Vitamins-Lipotro pics (LIPO-FLAVONOID PLUS PO) Take by mouth. Active Active Problems Problem Noted Date Diagnosed Date Elevated blood pressure reading 10/09/2024 Family History Relation Name Status Comments Child 1 Alive Child 2 Alive Father Mother Alive Social History Tobacco Use Types Packs/Day Years Used Date Smoking Tobacco: Former Cigarettes Smokeless Tobacco: Never Tobacco Cessation:Counseling Given: Not Answered Alcohol Use Standard Drinks/Week Comments Yes 0 (1 standard drink = 0.6 oz pur e alcohol) 1 drink weekly Comments Unknown Sex and Gender Information Value Date Recorded Sex Assigned at Not on file Legal Sex Female 11:44 AM CDT Gender Identity Not on file Sexual Orientation Not on file Last Filed Vital Signs Vital Sign Reading Time Taken Comments Blood Pressure 142/82 10/09/2024 10:49 AM DIRECTOR CUSTOM Pulse 73 10/09/2024 10:49 AM DIRECTOR CUSTOM Temperature 36.9 C (98.4 F) 10/09/2024 10:49 AM DIRECTOR CUSTOM Respiratory Rate 16 10/09/2024 10:49 AM DIRECTOR CUSTOM Oxygen Saturation 97% 10/09/2024 10:49 AM DIRECTOR CUSTOM Inhaled Oxygen Concentration - - Weight 89.9 kg (198 lb 3.2 oz) 10/09/2024 10:49 AM DIRECTOR CUSTOM Height 157.5 cm (5' 2) 10/09/2024 10:49 AM DIRECTOR CUSTOM Body Mass Index 36.25 10/09/2024 10:49 AM DIRECTOR CUSTOM Plan of Treatment Upcoming Encounters Date Type Department Care Team (Late st Contact Info) Description 04/09/2025 10:30 AM CDT Lab [facility] [address] [phone] Lab, [facility] 04/09/2025 10:45 AM CDT Office Visit [facility] [address] [phone] Lowell Schafer, [address] [place] [phone] Health Maintenance Due Date Last Done Comments DEXA Bone Density 1955 Hepatitis C Virus (HCV) Screening 1955 Cologuard 1998 Colonoscopy 1998 Colorectal Cancer Screening 1998 Immunochemical Fecal Occult Blood 1998 Mammogram 05/19/2023 05/19/2022 SARS-COV-2 Immunization ( season) 2024 06/16/2024, 06/16/2024, 07/13/2023, Additional history exists TdaP Immunization Completed 08/15/2014 Hepatitis B Immunization Completed 018, 02/08/2018, 01/09/2018 Zoster Immunization Completed 04/09/2019, 01/09/2018, 08/15/2014 Pneumococcal Immunization (50+ years) Completed 10/22/2019, 05/22/2018 Influenza Immunization Completed , 07/13/2023, 07/20/2022, Additional history exists Respiratory Syncytial Virus (RSV) Immunization (Adult) Completed 06/16/2024 Human Papillomavirus (HPV) Immunization Aged Out No longer eligible based on patient's age to complete this topic Meningococcal Immunization (ACWY) Aged Out No longer eligible based on patient's age to complete this topic Rotavirus Immunization Aged Out No lo nger eligible based on patient's age to complete this topic Insurance MEDICARE [employer] Care Teams Sodium Methylate Operator Relationship Specialty Start Date End Date Jazz Corrales, PAC [address] [facility] [address] [place] [address] PCP - General Physician Ultrasound Specialist 05/25/24 Lowell Schafer, [address] [place] [phone] Consulting Physician Oncology 07/02/24
--- OUTSIDE RECORDS SUMMARY | 2025-03-13 12:10 | XMS_ITS | Clinical Summary ---
Author Organization [facility] Address [address] [place] [address] Care Team Providers Care Pole Framer Name Role Phone Jazz Corrales Primary Care Provider [phone] Allergies Active Allergy Reactions Criticality Noted Date Comments Amoxicillin-Pot Clavulanate Vomiting 09/20/20 19 Barium Sulfate Unknown 09/20/2019 Medications atorvastatin (LIPITOR) 40 MG tablet Take 1 tablet (40 mg total) by mouth nightly at bedtime. Active aspirin 81 MG chewable tablet Chew 1 tablet (81 mg total) by mouth daily. 4 05/17/20 25 Active Vitamin D3 (VITAMIN D) 50 mcg tablet Take 1 tablet (2,000 Units total) by mouth daily. 6 Active diphenhydrAMINE (BENADRYL) 25 MG capsule Take 1 capsule (25 mg total) by mouth nightly as needed for Allergies. Active omeprazole (PRILOSEC) 40 MG capsule Take 1 capsule (40 mg total) by mouth daily. 5 Active clobetasol (TEMOVATE) 0.05 % cream Apply topically 2 (two) times daily. 5 Active oyster shell calcium 500 mg, elemental, (OSCAL) 500 MG tablet Take 1 tablet (500 mg total) by mouth daily. Active cefdinir (OMNICEF) 300 MG Cap capsule Take 1 capsule (300 mg total) by mouth 2 (two) times daily for 9 days. 18 capsule 5 03/19/20 25 Active vitamin B-12 (CYANOCOBALAMIN ) 500 MCG tablet Take 1 tablet (500 mcg total) by mouth daily. 30 tablet 1 5 Active ferrous gluconate (FERGON) 324 (38 FE) MG tablet Take 1 tablet (324 mg total) by mouth daily with breakfast. 30 tablet 1 5 Active Active Problems Problem Noted Date Diagnosed Date Urinary tract infection 03/09/2025 UTI (urinary tract infection) 03/08/2025 Encounters Date Type Department Care Team Description 03/07/2025 9:19 PM CDT - 03/10/2025 12:38 PM CDT Hospital Encounter [facility] Med/Surg [address] [place] [address] Adonis Foley MD Verma, Seema, MD Harris, Michael, MD Littlejohn, GLO Pat Altered Mental Status Discharge Disposition: Home or Self Care (Routine Discharge) 03/07/2025 Travel from Last 3 Months Social History Tobacco Use Types Packs/Day Years Used Date Smoking Tobacco: Former Smokeless Tobacco: Never Alcohol Use Standard Drinks/Week Comments No 0 (1 standard drink = 0.6 oz pur e alcohol) B1300 Health Literacy Answer Date Recor ded How often do you need to hav e someone help you when you read instructions, pamphlets, or other written material from your doctor or pharmacy? Never 03/08/2025 [facility] Utilities Answer Date Recorded In the past 12 months has [facility] [employer], or water [employer] threatened to shut off services in your home? No 03/08/2025 Humiliation, Afraid, Rape, and Kick questionnair e Answer Date Recorded Within the last year, have y ou been afraid of your partner or ex-partner? No 03/08/2025 Within the last year, have y ou been humiliated or emotionally abused in other ways by your partner or ex-partner? No Within the last year, have y ou been kicked, hit, slapped, or otherwise physically hurt by your partner or ex-partner? No 03/08/2025 Within the last year, have y ou been raped or forced to have any kind of sexual activity by your partner or ex-partner? No 03/08/2025 AUDIT-C Answer Date Recorded Frequency of Alcohol Consumption Never 09/20/2019 Average Number of Drinks Not on file 019 Frequency of Binge Drinking Not on file 08/27 Overall Financial Resource Strain (CARDIA) Answe r Date Recorded How hard is it for you to pa y for the very basics like food, housing, medical care, and heating? Not hard at all 03/08/2025 [facility] Occupat ional [facility] - Occupational Stress Questionnaire Answer Date Recorded Do you feel stress - tense, restless, nervous, or anxious, or unable to sleep at night because your mind is troubled all the time - these days? Not at all 03/08/2025 Hunger Vital Sign Answer Date Recorded Within the past 12 months, y ou worried that your food would run out before you got the money to buy more. Never true 03/08/20 25 Within the past 12 months, t he food you bought just didn't last and you didn't have money to get more. Never true 03/08/2025 PRAPARE - Transportation Answer Date Re corded In the past 12 months, has l ack of transportation kept you from medical appointments or from getting medications? No 02/24 In the past 12 months, has l ack of transportation kept you from meetings, work, or from getting things needed for daily living? No 03/08/2025 Housing Stability Vital Sign Answer Kuldeep e Recorded In the last 12 months, was t here a time when you were not able to pay the mortgage or rent on time? No 03/08/2025 In the past 12 months, how m any times have you moved where you were living? 0 03/08/2025 At any time in the past 12 m [facility], were you homeless or living in a jail (including now)? No 03/08/2025 Comments No Sex and Gender Information Value Date Recorded Sex Assigned at Female 03/07/2025 9:33 PM CDT Legal Sex Female 7:21 PM CDT Gender Identity Female 03/07/2025 9:33 PM CDT Sexual Orientation Straight 03/07/2025 9: 33 PM CDT Last Filed Vital Signs Vital Sign Reading Time Taken Comments Blood Pressure 150/71 03/10/2025 12:15 PM CDT Pulse 59 03/10/2025 12:15 PM CDT Temperature 36.4 C (97.5 F) 03/10/2025 12:15 PM CDT Respiratory Rate 18 03/10/2025 12:15 PM CDT Oxygen Saturation 97% 03/10/2025 12:15 PM CDT Inhaled Oxygen Concentration - - Weight 87.1 kg (192 lb 0.3 oz) 03/09/2025 2:20 A M CDT Height 157.5 cm (5' 2) 03/07/2025 9:30 PM CDT Body Mass Index 35.12 03/07/2025 9:30 PM CDT Plan of Treatment Health Maintenance Due Date Last Done Comments Colorectal Cancer Screening Colonoscopy (10 Years) 1955 Hepatitis C 1971 Annual Medicare Wellness Visit 2018 Dexa Scan (General) 2018 Mammogram Screening 05/19/2024 05/19/2022 COVID-19 Vaccine (2023- season) 2024 06/16/2024, 07/13/2023, 07/20/2022, Additional history exists DTaP, Tdap and Td Vaccines (2 - Td or Tdap) 08/15/2024 08/15/2014, 08/02/2003, 07/27/1995 Zoster Vaccines Completed 04/09/2019, 12/25, 08/15/2014 Pneumococcal Vaccine: 50+ Years Completed 10/22/2019, 05/22/2018 RSV Immunization or 60+ Years Completed 06/16/2024 Meningococcal B Vaccine Aged Out No l onger eligible based on patient's age to complete this topic Meningococcal Vaccine Aged Out No rj jasmyne eligible based on patient's age to complete this topic RSV Immunizations Under 20 Months Aged Out No longer eligible based on patient's age to complete this topic Goals Goal Patient Goal Type Associated Problems Recent Progress Patient-Stated? 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 Procedure Name Priority Date/Time Associated Diagnosis Comments CT LUMB SPINE WO CON Today 03/08/2025 1:[address] HEAD WO CON Today 03/08/2025 1:29 PM CDT MAGNESIUM Routine 03/08/2025 6:12 AM CDT COMPREHENSIVE METABOLIC PANEL Routine 03/08/2025 6:12 AM CDT CBC W/DIFF AUTOMATED Routine 03/08/2025 6:12 AM CDT IRON SAT PANEL (IRON,IBC,%SAT) Routine 03/08/2025 6:11 AM CDT VITAMIN B12 / FOLATE Routine 03/08/2025 6:11 AM CDT LACTIC ACID W REFLEX (SEPSIS) TIMED 03/07/2025 11:23 PM CDT URINE BACTERIA CULTURE STAT 11:08 PM CDT URINALYSIS, AUTO, COMPLETE STAT 03/07/2025 11:08 PM CDT XR CHEST PORTABLE STAT 03/07/2025 9:4 1 PM CDT CULTURE, BACTERIA, BLOOD STAT 03/07/2025 9:36 PM CDT LACTIC ACID W REFLEX (SEPSIS) STAT 03/07/2025 9:26 PM CDT CULTURE, BACTERIA, BLOOD STAT 03/07/2025 9:25 PM CDT COMPREHENSIVE METABOLIC PANEL STAT 03/07/2025 9:25 PM CDT CBC W/DIFF AUTOMATED STAT 03/07/2025 9:25 PM CDT from Last 3 Months Results * CT LUMB SPINE WO CON (03/08/2025 1:29 PM CDT) Anatomical Region Laterality Modality Spine Computed Tomogra phy 03/09/2025 7:27 AM CDT Impressions 03/09/2025 7:34 AM CDT IMPRESSION: Multiple levels of neural foraminal stenosis with compression of nerve roots. This is especially seen at L2-S1. Mild to moderate spinal canal stenosis. Referred By: Interpreted By: Nicolas Juan MD, 03/09/2025 7:27 AM Narrative 03/09/2025 7:34 AM CDT [facility] [address] [facility]. [place] [id number] Examination: CT LUMB SPINE WO CON Exam time: 03/08/2025 1:25 PM Reason For Exam: Low back pain Comparison: None Technique: Axial CT scan of the lumbar spine was obtained without the use of IV contrast agent. Subsequent coronal and sagittal reformatted sequences are created for evaluation. A dose lowering technique was used for this procedure, which may include, but is not limited to, dose reduction technique, automated exposure control, iterative reconstruction, ALARA (As Low As Reasonably Achievable), or Image Gently techniques. Findings: There are 5 nonrib-bearing lumbar type vertebral bodies. Lumbar vertebral body heights and alignment are preserved. No acute fracture or dislocation. No destructive osseous lytic or sclerotic lesions. No significant paravertebral structural abnormalities. L5-S1: Facet arthrosis. Posterior broad-based disc bulge. No significant spinal stenosis. Compression of right-sided exiting nerve root at the neural foramen. Mild left-sided neural foraminal stenosis. L4-L5: Facet arthrosis. Disc bulge. AP thecal sac diameter about 7 mm. Compressed appearance of bilateral nerve roots at the neural foramina. L3-L4: Diffuse disc bulge. Compressed appearance of bilateral nerve roots at neural foramina. No significant thecal sac stenosis. L2-L3: Diffuse disc bulge. Compressed appearance of the bilateral nerve roots at neural foramina. AP thecal sac diameter mildly narrowed to 8.5 mm AP. L1-L2: Moderately narrowed appearance of the right neural foramen with a diffuse disc bulge. No significant spinal canal stenosis. T12-L1: Mild disc bulge and disc flattening. Moderate right neural foraminal stenosis. No significant spinal canal stenosis. T11-T12: Disc flattening with no significant stenosis. Bilateral SI joint osteoarthritis. Parapelvic cyst appearance of bilateral kidneys with nonspecific bilateral perinephric stranding. Arterial and aortic wall calcifications without AAA. Small uterine fibroid. Procedure Note Nicolas Juan MD - 03/09/2025 [facility] [address] [place] [address] Examination: CT LUMB SPINE WO CON Exam time: 03/08/2025 1:25 PM Reason For Exam: Low back pain Comparison: None Technique: Axial CT scan of the lumbar spine was obtained without the useof IV contrast agent. Subsequent coronal and sagittal reformattedsequences are created for evaluation. A dose lowering technique was usedfor this procedure, which may include, but is not limited to, dosereduction technique, automated exposure control, iterative reconstruction,ALARA (As Low As Reasonably Achievable), or Image Gently techniques. Findings: There are 5 nonrib-bearing lumbar type vertebral bodies. Lumbar vertebralbody heights and alignment are preserved. No acute fracture ordislocation. No destructive osseous lytic or sclerotic lesions. Nosignificant paravertebral structural abnormalities. L5-S1: Facet arthrosis. Posterior broad-based disc bulge. No significantspinal stenosis. Compression of right-sided exiting nerve root at theneural foramen. Mild left-sided neural foraminal stenosis. L4-L5: Facet arthrosis. Disc bulge. AP thecal sac diameter about 7 mm.Compressed appearance of bilateral nerve roots at the neural foramina. L3-L4: Diffuse disc bulge. Compressed appearance of bilateral nerve rootsat neural foramina. No significant thecal sac stenosis. L2-L3: Diffuse disc bulge. Compressed appearance of the bilateral nerveroots at neural foramina. AP thecal sac diameter mildly narrowed to 8.5mm AP. L1-L2: Moderately narrowed appearance of the right neural foramen with adiffuse disc bulge. No significant spinal canal stenosis. T12-L1: Mild disc bulge and disc flattening. Moderate right neuralforaminal stenosis. No significant spinal canal stenosis. T11-T12: Disc flattening with no significant stenosis. Bilateral SI joint osteoarthritis. Parapelvic cyst appearance of bilateral kidneys with nonspecific bilateralperinephric stranding. Arterial and aortic wall calcifications withoutAAA. Small uterine fibroid. IMPRESSION: Multiple levels of neural foraminal stenosis with compression of nerveroots. This is especially seen at L2-S1. Mild to moderate spinal canal stenosis. Referred By: Interpreted By: Nicolas Juan MD, 03/09/2025 7:27 AM us Bright Tineo MD CT Final Result * CT HEAD WO CON (03/08/2025 1:29 PM CDT) Anatomical Region Laterality Modality Head Computed Tomogra phy 03/08/2025 2:39 PM CDT Impressions 03/08/2025 2:53 PM CDT =====IMPRESSION:===== No evidence of acute intracranial hemorrhage, mass effect, or midline shift. . Possibility of normal pressure hydrocephalus is raised. Please correlate with symptomatology. Ordered By: BRIGHT TINEO Interpreted By: Obie Sauceda, 03/08/2025 2:39 PM Narrative 03/08/2025 2:53 PM CDT [place] [id number] [place] [address] EXAMINATION: CT OF THE HEAD WITHOUT CONTRAST EXAM DATE/TIME: 03/08/2025 1:25 PM REASON FOR EXAM: Altered mental status COMPARISON: None TECHNIQUE: Noncontrast CT examination of the head was performed with axial images obtained. A dose lowering technique was used for this procedure, which may include, but is not limited to, dose reduction technique, automated exposure control, iterative reconstruction, ALARA (As Low As Reasonably Achievable), or Image Gently techniques. FINDINGS: No evidence of scalp hematoma or significant soft tissue swelling. Limited evaluation of the paranasal sinuses and mastoids is unremarkable. Intracranially, no evidence of hemorrhage, mass effect, or midline shift. Mild small vessel ischemic change and brain volume loss. Moderate intracranial vascular calcifications. Prominence of the ventricular system is greater than the prominence of the subarachnoid spaces. Possibility of normal pressure hydrocephalus is raised. Posterior cranial fossa are unremarkable. Procedure Note Anthony Sauceda MD - 03/08/2025 [facility] [address] [place] [address] EXAMINATION: CT OF THE HEAD WITHOUT CONTRAST EXAM DATE/TIME: 03/08/2025 1:25 PM REASON FOR EXAM: Altered mental status COMPARISON: None TECHNIQUE: Noncontrast CT examination of the head was performed with axialimages obtained. A dose lowering technique was used for this procedure,which may include, but is not limited to, dose reduction technique,automated exposure control, iterative reconstruction, ALARA (As Low AsReasonably Achievable), or Image Gently techniques. FINDINGS: No evidence of scalp hematoma or significant soft tissue swelling. Limited evaluation of the paranasal sinuses and mastoids isunremarkable. Intracranially, no evidence of hemorrhage, mass effect, or midlineshift. Mild small vessel ischemic change and brain volume loss. Moderateintracranial vascular calcifications. Prominence of the ventricular system is greater than the prominence of thesubarachnoid spaces. Possibility of normal pressure hydrocephalus israised. Posterior cranial fossa are unremarkable. =====IMPRESSION:===== No evidence of acute intracranial hemorrhage, mass effect, or midlineshift. . Possibility of normal pressure hydrocephalus is raised. Please correlatewith symptomatology. Ordered By: BRIGHT TINEO Interpreted By: Obie Sauceda, 03/08/2025 2:39 PM us Bright Tineo MD CT Final Result * (ABNORMAL) COMPREHENSIVE METABOLIC PANEL (03/08/2025 6:12 AM CDT) Only the most recent of2 resultswithin the time period is included. GLUCOSE 89 70 - 99 MG/DL 03/08/2025 7:03 AM CDT [facility] BUN 13 7 - 18 MG/DL 03/08/2025 7:03 AM [facility] CREATININE S/P/B 1.00 0.55 - 1.02 MG/DL 03/08/2025 7:03 AM [facility] SODIUM S/P/B 142 136 - 145 MMOL/L 03/08/2025 7:03 AM [facility] POTASSIUM S/P/B 3.8 3.5 - 5.1 MMOL/L 03/08/2025 7:03 AM [facility] CHLORIDE S/P/B 112(H) 100 - 108 MMOL/L 03/08/2025 7:03 AM [facility] CO2 24.6 21 - 32 MMOL/L 03/08/2025 7:03 AM [facility] CALCIUM S/P/B 8.7 8.5 - 10.1 MG/DL 03/08/2025 7:03 AM [facility] BILIRUBIN TOTAL S/P/B 0.9 0.2 - 1.2 MG/DL 03/08/2025 7:03 AM [facility] TOTAL PROTEIN S/P/B 6.2(L) 6.4 - 8.2 G/DL 03/08/2025 7:03 AM [facility] ALBUMIN S/P/B 3.0(L) 3.4 - 5.0 G/DL 03/08/2025 7:03 AM [facility] AST 14(L) 15 - 37 U/L 03/08/2025 7:03 AM [facility] ALT 16 14 - 55 U/L 03/08/2025 7:03 AM [facility] ALKALINE PHOSPHATASE S/P/B 80 50 - 136 U/L 03/08/2025 7:03 AM CDT [facility] ANION GAP 5.4 5 - 15 MMOL/L 03/08/2025 7:03 AM CDT [facility] BUN CREATININE RATIO 13.0 6 - 26 03/08/2025 7:03 AM CDT [facility] A/G RATIO 0.9(L) 1.0 - 2.0 RATIO 03/08/2025 7:03 AM T [facility] GFR ESTIMATE 60(L) >90 ML/MIN/1.7 3 M2 03/08/2025 7:03 AM T [facility] Comment: NOTE: eGFR is not calculated for patients <18 years of age. This is an estimated GFR calculation using the new CKD EPI creatinine equation without race and so does not require a correction factor for race. This estimated GFR should not be used for calculating drug doses. 03/08/2025 6:12 AM CDT us Marline Tapia MD LABORATORY Final Result [facility] [address] [place] [address], [place] [phone] * (ABNORMAL) CBC W/DIFF AUTOMATED (03/08/2025 6:12 AM CDT) Only the most recent of2 resultswithin the time period is included. WBC 7.30 4.4 - 11.0 x10'3/uL 03/08/2025 7:00 AM CDT [facility] RBC 3.79(L) 4.50 - 5.10 x10'6/uL 03/08/2025 7:00 AM T [facility] HGB 11.4(L) 12.3 - 15.3 G/DL 03/08/2025 7:00 AM T [facility] HCT 34.9(L) 35.9 - 44.6 % 03/08/2025 7:00 AM CDT [facility] MCV 92.1 80.0 - 96.0 FL 03/08/2025 7:00 AM CDT [facility] MCH 30.1 25.3 - 30.9 PG 03/08/2025 7:00 AM CDT [facility] MCHC 32.7 31.0 - 34.1 G/DL 03/08/2025 7:00 AM CDT [facility] RDW 12.9 12.4 - 15.1 % 03/08/2025 7:00 AM CDT [facility] PLT 219 151 - 353 x10'3/uL 03/08/2025 7:00 AM T [facility] MPV 11.2 9.6 - 12.0 FL 03/08/2025 7:00 AM T [facility] NEUTROPHILS % 66.0 42.1 - 71.9 % 03/08/2025 7:24 AM CDT [facility] LYMPHOCYTES % 21.5 15.8 - 45.0 % 03/08/2025 7:24 AM T [facility] BASOPHILS 0.4 0.0 - 1.3 % 03/08/2025 7:24 AM T [facility] EOSINOPHILS 2.2 0.0 - 5.6 % 03/08/2025 7:24 AM T [facility] MONOCYTES % 9.6 5.7 - 12.5 % 03/08/2025 7:24 AM CDT [facility] IMMATURE GRANS % 0.3 0.0 - 0.5 % 03/08/2025 7:24 AM CDT [facility] ABS. NEUTROPHILS 4.82 1.40 - 6.00 x10'3/uL 03/08/2025 7:24 AM CDT [facility] ABS. LYMPHOCYTES 1.57 0.80 - 4.70 x10'3/uL 03/08/2025 7:24 AM CDT [facility] PLT MORPH. NORMAL 03/08/2025 7:24 AM CDT [facility] RBC MORPHOLOGY NORMAL 03/08/2025 7:24 AM CDT [facility] WBC MORPHOLOGY NORMAL 03/08/2025 7:24 AM CDT [facility] 03/08/2025 6:12 AM CDT us Marline Tapia MD LABORATORY Final Result Performing Organization Address City/[facility]/ZIP Co de Phone Number [facility] [address] [place] [address], [place] [phone] * MAGNESIUM (03/08/2025 6:12 AM CDT) MAGNESIUM 2.0 1.8 - 2.4 MG/DL 03/08/2025 7:03 AM CDT [facility] 03/08/2025 6:12 AM CDT us Marline Tapia MD LABORATORY Final Result Performing Organization Address City/[facility]/ZIP Co de Phone Number [facility] [address] [place] [address], [place] [phone] * VITAMIN B12 / FOLATE (03/08/2025 6:11 AM CDT) VITAMIN B12 S/P/B 298 193 - 986 PG/ML 03/08/2025 12:48 PM CDT [facility] FOLATE 9.6 8.6 - 58.9 NG/ML 03/08/2025 12:48 PM CDT [facility] 03/08/2025 6:11 AM CDT us Bright Tineo MD LABORATORY Final Result [facility] [address] [place] [address], [place] [phone] * (ABNORMAL) IRON SAT PANEL (IRON,IBC,%SAT) (03/08/2025 6:11 AM CDT) IRON 17(L) 50 - 170 MCG/DL 03/08/2025 12:23 PM CDT [facility] IRON BINDING CAPACITY 175(L) 250 - 450 MCG/DL 03/08/2025 12:23 PM CDT [facility] IRON SATURATION 10(L) 20 - 55 % 12:23 PM CDT [facility] 03/08/2025 6:11 AM CDT us Bright Tineo MD LABORATORY Final Result Performing Organization Address [facility] Co de Phone Number [facility] [address] [place] [address], [place] [phone] * LACTIC ACID W REFLEX (SEPSIS) (03/07/2025 11:23 PM CDT) Only the most recent of2 resultswithin the time period is included. LACTIC ACID VENOUS 1.0 0.4 - 2.0 MMOL/L 03/07/2025 11:54 PM CDT [facility] 03/07/2025 11:2 3 PM CDT us Adonis Foley MD LABORATORY Final Resu lt Performing Organization Address City/[facility]/ZIP Co de Phone Number [facility] [address] [place] [address], [place] [phone] * (ABNORMAL) CULTURE URINE (03/07/2025 11:08 PM CDT) SPEC DESCRIPTION URINE CLEAN CATCH 03/07/2025 11:07 PM CDT [facility] SPECIAL REQUESTS NO SPECIAL REQUEST 03/07/2025 11:07 PM CDT [facility] CULTURE RESULT >100,000 COL/ML ESCHERICHIA COLI (A) 03/10/2025 7:[address] [facility] URINE SPECIMEN OBTAINED BY CLEAN CATCH PROCEDURE / Unknown 03/07/2025 11:08 PM CDT 03/07/2025 11:13 PM CDT Narrative Organism Antibiotic Method Susceptibility Escherichia coli AMPICILLIN SANDRITA (VITEK) >=32: Resistant Escherichia coli AMPICILLIN/SULBACTAM SANDRITA (VITEK) 16: Intermediate Comment:INTERMEDIATE Escherichia coli CEFTRIAXONE SANDRITA (VITEK) <=1: Sensitive Escherichia coli CEFTAZIDIME SANDRITA (VITEK) <=1: Sensitive Escherichia coli CEFAZOLIN SANDRITA (VITEK) <=4: Sensitive Escherichia coli ESBL SANDRITA (VITEK) NEG: Sensitive Escherichia coli NITROFURANTOIN SANDRITA (VITEK) <=16: Sensitive Escherichia coli GENTAMICIN SANDRITA (VITEK) <=1: Sensitive Escherichia coli LEVOFLOXACIN SANDRITA (VITEK) <=0.12: Sensitive Escherichia coli PIPRACIL/TAZO SANDRITA (VITEK) <=4: Sensitive Escherichia coli TRIMETH-SULFAMETH. SANDRITA (VITEK) <=20: Sensitive Adonis Foley MD MICROBIOLOGY - GENERAL ORD ERABLES Final Result [facility] [address] [place] [address], [place] [phone] [facility] [address] [place] [address], [place] [phone] * (ABNORMAL) URINALYSIS, AUTO, COMPLETE (03/07/2025 11:08 PM CDT) COLOR (U) YELLOW 03/07/2025 11:37 PM [facility] TRANSPARENCY CLOUDY 03/07/2025 11:37 PM [facility] SPECIFIC GRAVITY (U) 1.010 1.000 - 1.030 03/07/2025 11:37 PM [facility] U PH 6.0 5.0 - 9.0 03/07/2025 11:37 PM [facility] LEUKOCYTES (U) 3+(A) NEGATIVE 03/07/2025 11:37 PM [facility] NITRITES POSITIVE(A) NEGATIVE 03/07/2025 11:37 PM [facility] PROTEIN RANDOM (U) TRACE(A) NEGATIVE 03/07/2025 11:37 PM [facility] GLUCOSE (U) NEGATIVE NEGATIVE 03/07/2025 11:37 PM [facility] KETONES MG/DL (U) NEGATIVE NEGATIVE 03/07/2025 11:37 PM [facility] BILIRUBIN (U) NEGATIVE NEGATIVE 03/07/2025 11:37 PM [facility] BLOOD (U) 3+(A) NEGATIVE 03/07/2025 11:37 PM [facility] WBC/HPF 25-50 0 - 5 /HPF 03/07/2025 11:37 PM [facility] RBC/HPF 10-25 0 - 5 /HPF 03/07/2025 11:37 PM [facility] EPI/HPF RARE /HPF 03/07/2025 11:37 PM [facility] BACTERIA (U) MANY /HPF 03/07/2025 11:37 PM [facility] URINE SPECIMEN OBTAINED BY CLEAN CATCH PROCEDURE / Unknown 03/07/2025 11:08 PM CDT us Adonis Foley MD URINE ORDERABLES Final Res ult [facility] [address] [place] [address], [place] [phone] * XR CHEST PORTABLE (03/07/2025 9:41 PM CDT) Anatomical Region Laterality Modality Chest Radiographic Netta ging 03/07/2025 10:2 4 PM CDT Impressions 03/07/2025 10:26 PM CDT IMPRESSION: No acute findings. Referred By: Interpreted By: Sammy Harrison DO, 03/07/2025 10:24 PM Narrative 03/07/2025 10:26 PM CDT [facility] [address] [facility] [place] [address] EXAMINATION: X-ray chest HISTORY: Confusion. Shortness of breath. Concern for sepsis. COMPARISON: None. TECHNIQUE: Portable AP view chest. FINDINGS: The heart size and vascular markings appear within normal limits. There is no mediastinal shift. No evidence of pneumonia, pleural effusion, or pneumothorax. There are small benign calcified nodules and lymph nodes. No visible acute findings. Procedure Note Sammy Harrison DO - 03/07/2025 [facility] [address] [facility] [place] [address] EXAMINATION: X-ray chest HISTORY: Confusion. Shortness of breath. Concern for sepsis. COMPARISON: None. TECHNIQUE: Portable AP view chest. FINDINGS: The heart size and vascular markings appear within normal limits. Thereis no mediastinal shift. No evidence of pneumonia, pleural effusion, orpneumothorax. There are small benign calcified nodules and lymph nodes.No visible acute findings. IMPRESSION: No acute findings. Referred By: Interpreted By: Sammy Harrison DO, 03/07/2025 10:24 PM Adonis Foley MD GENERAL IMAGING Final Resu lt * CULTURE, BACTERIA, BLOOD (03/07/2025 9:36 PM CDT) Only the most recent of2 resultswithin the time period is included. SPEC DESCRIPTION BLOOD 03/07/2025 9:25 PM CDT [facility] SPECIAL REQUESTS NO SPECIAL REQUEST 03/07/2025 9:25 PM CDT [facility] CULTURE RESULT NO GROWTH 5 DAYS 03/13/2025 11:[address] [facility] BLOOD SPECIMEN OBTAINED FOR BLOOD CULTURE / Unknown 03/07/2025 9:36 PM CDT 03/07/2025 10:00 PM CDT Adonis Foley MD MICROBIOLOGY - GENERAL ORD ERABLES Final Result 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
--- OUTSIDE RECORDS SUMMARY | 2025-03-13 12:11 | XMS_ITS | Encounter Summary ---
Author Organization [facility] Healthcare Address [address] [place] [address] Care Team Providers Care Press Feeder Broomcorn Name Role Phone Jazz Corrales Primary Care Provider [phone]- [phone] Reason for Visit * Reason Onset Date Comments Post Hospitalization 03/12/2025 Encounter Details Date Type Department Care Team (Late st Contact Info) Description 03/12/2025 Telephone [facility] Family Medicine [address] [place] [address] Jazz Corrales PA [address] [place] [address] Post Hospitalization Social History Tobacco Use Types Packs/Day Years Used Date Smoking Tobacco: Former Cigarettes 2 34 1 974 - 2008 Smokeless Tobacco: Never Alcohol Use Standard Drinks/Week Comments Yes 1 (1 standard drink = 0.6 oz pur e alcohol) AUDIT-C Answer Date Recorded Q1: How often do you have a drink containing alc ohol? 2-4 times a month 01/28/2025 Q2: How many drinks containi ng alcohol do you have on a typical day when you are drinking? 1 or 2 01/28/2025 Q3: How often do you have si x or more drinks on one occasion? Never 01/28/2025 PHQ-2 Answer Date Recorded PHQ-2 Total Score (If total score is 3 or more points, staff should administer the PHQ-9) 0 01/28/2025 Comments No Sex and Gender Information Value Date Recorded Sex Assigned at Not on file Legal Sex Female 7:35 AM DENITRATOR Gender Identity Female 08/31/2021 1:50 PM DENITRATOR Sexual Orientation Not on file documented as of this encounter Miscellaneous Notes * Telephone Encounter - Mena Sharif LPN - 03/13/2025 8:51 AM CDT Called and LVM for Ellie to return call. Please transfer through to office. * Telephone Encounter - Iliana King - 03/12/2025 3:[address] Ellie Healy returned Sharon's call. Please call her to discuss pt's recent hospitalization. documented in this encounter Plan of Treatment Not on file documented as of this encounter Visit Diagnoses Not on filedocumented in this encounter Care Teams Press Feeder Broomcorn Relationship Specialty Start Date End Date Jazz Corrales PA [address] [place] [address] PCP - General Internal Medicine 03/06/19 documented as of this encounter
--- OUTSIDE RECORDS SUMMARY | 2025-03-13 12:11 | XMS_ITS | Referral Summary ---
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 Name Role Phone Jazz Corrales Primary Care Provider [phone]- [phone] Encounters Date Type Department Care Team Description 03/12/2025 Telephone [facility] [address] [facility] [address] [place] [phone] Jazz Corrales PA Post Hospitalization 03/11/2025 Telephone [facility] [address] [place] [phone] Jazz Corrales PA 03/08/2025 Telephone [facility] [address] [place] [address] Road [address] [place] [phone] Jazz Corrales PA Appointment Request 02/13/2025 Results Follow-Up [facility] [address] [place] [address] Road [address] [place] [phone] Jazz Corrales PA CBC with auto differential, Comprehensive metabolic panel, Hemoglobin A1c, Additional followed-up results: 4 01/28/2025 Telephone [facility] [place] [address] [place] [address] aJzz Corrales PA 01/28/2025 11:30 AM CDT Office Visit [facility] [address] [facility] [address] [place] [address] Jazz Corrales PA Medicare annual wellness visit, subsequent (Primary Dx); Breast cancer screening by mammogram; Poor balance; Fatigue, unspecified type; Mixed hyperlipidemia; Other fatigue; Hematuria, unspecified type; Hyperglycemia; Gastroesophageal reflux disease without esophagitis; Lichen sclerosus; Vitamin D deficiency; BMI 36.0-36.9,adult; Morbid obesity (HCC) 01/24/2025 Telephone [facility] [address] [facility] [address] [place] [address] Jazz Corrales PA Medical Question/Miscellaneous from Last 3 Months Allergies Active Allergy Reactions Criticality Noted Date Comments Amoxicillin-Pot Clavulanate Stomach upset,Vomiting Low 12/20/2005 GI upset Barium Sulfate Rash Medium 12/30/2006 Reaction(s): Rash, itching Clavulanic Acid Stomach upset Low 11/14/2018 Stomach/GI Upset Other Rash Medium 11/14/2018 Rash/ Exlax Medications calcium carbonate (CALCIUM 500 ORAL)Indication s:supplement 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 Active diphenhydrAMINE (BENADRYL) 25 mg capsule Take 1 tablet/capsul e (25 mg total) by mouth nightly as needed for allergies Active cholecalciferol (VITAMIN D-3) 2000 unit tabletIndicatio ns:Vitamin D Deficiency Take 1 tablet (2,000 Units total) by 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 90 tablet 2 3 Active aspirin 81 mg chewable tabletIndicatio ns:Prophylactic measure Take 1 tablet (81 mg total) by mouth daily 4 05/17/20 25 Active atorvastatin (LIPITOR) 40 mg tabletIndicatio ns:hyperlipidem ia Take 1 tablet (40 mg total) by mouth nightly 90 tablet 2 5 Active omeprazole (PriLOSEC) 40 mg capsuleIndicati ons:Treatment of Non-Bleeding Gastric Disorder,gerd Take 1 capsule (40 mg total) by 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 90 capsule 2 5 Active clobetasoL (TEMOVATE) 0.05 % creamIndication s:Lichen sclerosus Apply topically 2 (two) times a day 60 g 1 5 Active cefdinir (OMNICEF) 300 mg capsuleIndicati ons:Urinary Tract/Genitouri nary Infection Take 1 capsule (300 mg total) by mouth 2 (two) times a day for 9 days 5 03/20/20 25 Active clobetasoL (TEMOVATE) 0.05 % cream Apply topically 2 (two) times a day 60 g 1 5 03/11/20 25 Discontinu ed(Reorder ) Active Problems Problem Noted Date Diagnosed Date Medicare annual wellness visit, subsequent 02/10 Assessment & Plan (02/10/2025 8:10 PM CDT): Encouraged healthy lifestyle, good nutrition and exercise. Encouraged Calcium and Vitamin D and weight bearing exercise for bone health. Reviewed immunizations. Reviewed age appropirate screenings. Medicare Wellness Documentation is completed within the chart Hyperglycemia 02/10/2025 Assessment & Plan (02/10/2025 8:10 PM CDT): Pre-diabetes/hyperglycemia is a precursor to Dm. Stressed importance of working on diet (decrease your simple sugars and one carbohydrate with each meal) and increase you exercise to achieve weight loss and this will help prevent you from progressing to diabetes. Poor balance 02/10/2025 Assessment & Plan (02/10/2025 8:11 PM CDT): Patient seems to have increased difficulty with balance. She has had good success with physical therapy in the past so new order provided Hematuria 05/22/2024 Assessment & Plan (02/10/2025 8:10 PM CDT): Check urine dip and culture to rule out infection. She states she is had peak if your it for a week or so Increase fluids Assessment & Plan (05/22/2024 3:00 PM CDT): Patient with persistent hematuria. She states it has been there for awhile but she did not make aware of it. Urine dip did show hematuria so will start with Bactrim DS pending culture and sensitivity. Will do a test of cure to make sure completely resolves and follow up closely. If symptoms persist may need additional workup with Urology. Abnormal blood smear 05/22/2024 Assessment & Plan (07/31/2024 7:30 PM ORTHOTIC/PROSTHETIC PRACTITIONER): Continue per Dr. Schafer. Assessment & Plan (05/22/2024 3:02 PM CDT): Addendum: Patient's labs returned and patient was notified on 05/22 that there were myelocytes in her differential. Will make referral to Oncology. The order was connected to this visit since the labs were ordered with this visit. Acquired trigger finger 02/06/2024 Overview (02/06/2024): Will refer to ortho for further eval and treatment. 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 She needs a refill of bupropion, will order through [facility]. She will continue with 21 mg patches for 2 more weeks as planned. Unilateral primary osteoarthritis, left knee Neck pain 07/12/2021 Assessment & Plan (07/12/2021 5:43 PM CDT): Check xrays. Recommend PT. Order provided BMI 36.0-36.9,adult 01/01/2021 Assessment & Plan (01/28/2025 11:58 AM CDT): Discussed the patient's BMI. The BMI is above average. BMI management plan is completed. BMI Follow-up includes: nutrition counseling, exercise counseling and education provided. Assessment & Plan (01/01/2021 10:40 AM CDT): Obesity is unchanged. Discussed the patient's BMI. The BMI is above average. BMI management plan is completed. BMI Follow-up includes: nutrition counseling, exercise counseling and education provided. Breast cancer screening by mammogram 11/01/2020 Assessment & Plan (02/10/2025 8:09 PM CDT): Mammogram order provided Assessment & Plan (07/31/2024 7:31 PM ORTHOTIC/PROSTHETIC PRACTITIONER): Mammogram order provided Assessment & Plan (11/21/2022 5:21 PM ORTHOTIC/PROSTHETIC PRACTITIONER): Mammogram order provided Assessment & Plan (11/28/2021 10:04 PM ORTHOTIC/PROSTHETIC PRACTITIONER): Mammogram order provided Assessment & Plan (11/01/2020 8:22 PM ORTHOTIC/PROSTHETIC PRACTITIONER): Mammogram order provided Osteopenia of lumbar spine 11/01/2020 Assessment & Plan (11/21/2022 5:21 PM ORTHOTIC/PROSTHETIC PRACTITIONER): Check DEXA Assessment & Plan (11/01/2020 8:22 PM ORTHOTIC/PROSTHETIC PRACTITIONER): Continue calcium, vitamin D and exercise. Check DXA Other fatigue 11/01/2020 Assessment & Plan (02/10/2025 8:09 PM CDT): Probably multifactorial. Check labs and followup to re-evaluate Assessment & Plan (05/22/2024 2:59 PM CDT): Probably multifactorial. Check labs and followup to re-evaluate Assessment & Plan (11/21/2022 5:21 PM ORTHOTIC/PROSTHETIC PRACTITIONER): Probably multifactorial. Check labs and followup to re-evaluate Assessment & Plan (11/01/2020 8:22 PM ORTHOTIC/PROSTHETIC PRACTITIONER): Probably multifactorial. Check labs and followup to re-evaluate At risk for obstructive sleep apnea 09/24/2020 Complete tear of right rotator cuff 09/17/2020 Overview (09/17/2020): Added automatically from request for surgery [id number] History of kidney stones 04/20/2019 Overview (04/20/2019): 2019 - lithothripsy Assessment & Plan (04/20/2019 9:20 PM CDT): 2019 lithotripsy Vitamin D deficiency 04/20/2019 Assessment & Plan (02/10/2025 8:08 PM CDT): Supplement Assessment & Plan (07/31/2024 7:31 PM ORTHOTIC/PROSTHETIC PRACTITIONER): supplement Assessment & Plan (05/22/2024 2:59 PM CDT): Supplement Assessment & Plan (11/21/2022 5:20 PM ORTHOTIC/PROSTHETIC PRACTITIONER): Supplement Assessment & Plan (11/28/2021 10:04 PM ORTHOTIC/PROSTHETIC PRACTITIONER): Supplement Assessment & Plan (11/01/2020 8:17 PM ORTHOTIC/PROSTHETIC PRACTITIONER): supplement Assessment & Plan (10/26/2019 7:45 PM ORTHOTIC/PROSTHETIC PRACTITIONER): supplement Assessment & Plan (04/20/2019 9:17 PM CDT): supplement Morbid obesity 04/09/2019 Assessment & Plan (02/10/2025 8:09 PM CDT): Discussed the patient's BMI. The BMI is above average. BMI management plan is completed. BMI Follow-up includes: nutrition counseling, exercise counseling and education provided. Patient has an obesity-related condition (not limited to: hypertension, obstructive sleep apnea, osteoarthritis, hyperlipidemia, diabetes, etc.). Therefore, morbid obesity may be documented for patients with a BMI between 35.00-39.99. Assessment & Plan (07/31/2024 7:31 PM ORTHOTIC/PROSTHETIC PRACTITIONER): Discussed the patient's BMI. The BMI is above average. BMI management plan is completed. BMI Follow-up includes: nutrition counseling, exercise counseling and education provided. Patient has an obesity-related condition (not limited to: hypertension, obstructive sleep apnea, osteoarthritis, hyperlipidemia, diabetes, etc.). Therefore, morbid obesity may be documented for patients with a BMI between 35.00-39.99. Assessment & Plan (05/22/2024 2:59 PM CDT): Discussed the patient's BMI. The BMI is above average. BMI management plan is completed. BMI Follow-up includes: nutrition counseling, exercise counseling and education provided. Assessment & Plan (12/04/2023 4:23 PM CDT): Discussed the patient's BMI. The BMI is above average. BMI management plan is completed. BMI Follow-up includes: nutrition counseling, exercise counseling and education provided. Assessment & Plan (01/01/2021 10:40 AM CDT): Obesity is unchanged. Discussed the patient's BMI. The BMI is above average. BMI management plan is completed. BMI Follow-up includes: nutrition counseling, exercise counseling and education provided. Assessment & Plan (10/26/2019 7:45 PM ORTHOTIC/PROSTHETIC PRACTITIONER): Obesity is unchanged. Discussed the patient's BMI. The BMI is above average. BMI management plan is completed. BMI Follow-up includes: nutrition counseling, exercise counseling and education provided. Assessment & Plan (04/09/2019 2:25 PM CDT): Obesity is unchanged. Discussed the patient's BMI. The BMI is above average; BMI management plan is completed. General weight loss/lifestyle modification strategies discussed (elicit support from others; identify saboteurs; non-food rewards, etc). Encouraged increased exercise. Menopause 04/09/2019 Assessment & Plan (07/31/2024 7:31 PM ORTHOTIC/PROSTHETIC PRACTITIONER): Check DEXA Assessment & Plan (11/01/2020 8:20 PM ORTHOTIC/PROSTHETIC PRACTITIONER): Check DXA Assessment & Plan (10/26/2019 7:45 PM ORTHOTIC/PROSTHETIC PRACTITIONER): stable Assessment & Plan (04/20/2019 9:14 PM CDT): Check DXA Mixed hyperlipidemia 04/07/2019 Assessment & Plan (02/10/2025 8:09 PM CDT): Encouraged patient to follow low fat/low chol diet like the Mediterranean diet. Increase good fats in the diet. Increase exercise. Monitor labs as needed. Continue atorvastatin Assessment & Plan (07/31/2024 7:30 PM ORTHOTIC/PROSTHETIC PRACTITIONER): Encouraged patient to follow low fat/low chol diet like the Mediterranean diet. Increase good fats in the diet. Increase exercise. Monitor labs as needed. Continue atorvastatin Assessment & Plan (05/22/2024 2:59 PM CDT): Encouraged patient to follow low fat/low chol diet like the Mediterranean diet. Increase good fats in the diet. Increase exercise. Monitor labs as needed. Continue atorvastatin 40 Assessment & Plan (12/04/2023 4:22 PM CDT): Encouraged patient to follow low fat/low chol diet like the Mediterranean diet. Increase good fats in the diet. Increase exercise. Monitor labs as needed. Continue atorvastatin Assessment & Plan (11/21/2022 5:19 PM ORTHOTIC/PROSTHETIC PRACTITIONER): Encouraged patient to follow low fat/low chol diet like the Mediterranean diet. Increase good fats in the diet. Increase exercise. Monitor labs as needed. Continue statin Assessment & Plan (11/28/2021 10:03 PM ORTHOTIC/PROSTHETIC PRACTITIONER): Encouraged patient to follow fat/low chol diet like the Mediterranean diet. Increase good fats in the diet. Increase exercise. Monitor labs as needed. Continue atorvastatin Assessment & Plan (11/01/2020 8:21 PM ORTHOTIC/PROSTHETIC PRACTITIONER): Encouraged patient to follow fat/low chol diet like the Mediterranean diet. Increase good fats in the diet. Increase exercise. Monitor labs as needed. Continue statin Assessment & Plan (10/26/2019 7:46 PM ORTHOTIC/PROSTHETIC PRACTITIONER): Encouraged patient to continue low fat/low chol diet. Continue exercise. Increase good fats in the diet. Monitor labs as needed. Assessment & Plan (04/20/2019 9:14 PM CDT): Encouraged patient to continue low fat/low chol diet. Continue exercise. Increase good fats in the diet. Monitor labs as needed. Gastroesophageal reflux disease without esophagi tis 04/07/2019 Assessment & Plan (02/10/2025 8:09 PM CDT): Continue omeprazole q.o.d.. Continues her rash she is able Assessment & Plan (07/31/2024 7:30 PM ORTHOTIC/PROSTHETIC PRACTITIONER): Continue PPI as needed Assessment & Plan (05/22/2024 2:58 PM CDT): Continue with PPI p.r.n.. If she can continue to decrease and use just as needed it is preferred Assessment & Plan (12/04/2023 4:22 PM CDT): Continue omeprazole as needed Assessment & Plan (11/21/2022 5:20 PM ORTHOTIC/PROSTHETIC PRACTITIONER): Continue PPI p.r.n. Assessment & Plan (11/28/2021 10:04 PM ORTHOTIC/PROSTHETIC PRACTITIONER): Continue PPI Assessment & Plan (07/12/2021 5:44 PM CDT): Continue ppi Assessment & Plan (01/01/2021 10:07 PM CDT): Improved with the PPI. Continue to use for the next 3-4 months then may try to go to everyother day and decrease as tolerated. Continue with behavioral changes. Assessment & Plan (10/26/2019 7:45 PM ORTHOTIC/PROSTHETIC PRACTITIONER): Stable with PPI Assessment & Plan (04/20/2019 9:14 PM CDT): Stable with ppi Lichen sclerosus 04/07/2019 Assessment & Plan (02/10/2025 8:09 PM CDT): Continue clobetasol p.r.n. Assessment & Plan (07/31/2024 7:30 PM ORTHOTIC/PROSTHETIC PRACTITIONER): Continue clobetasol Use on a regular basis for best control Assessment & Plan (05/22/2024 2:58 PM CDT): Continue with clobetasol to the area at least once a week for maintenance Assessment & Plan (11/21/2022 5:20 PM ORTHOTIC/PROSTHETIC PRACTITIONER): Continue clobetasol couple times a week. She states that the lichen sclerosis is well managed. Assessment & Plan (11/28/2021 10:04 PM ORTHOTIC/PROSTHETIC PRACTITIONER): Patient continues withClobetasol1 to 2 times a week with good management. Assessment & Plan (11/01/2020 8:20 PM ORTHOTIC/PROSTHETIC PRACTITIONER): Continue clobetasol prn Assessment & Plan (10/26/2019 7:46 PM ORTHOTIC/PROSTHETIC PRACTITIONER): Continue steroid cream. Followup if itching/irritation doesn't remain managed. Assessment & Plan (04/20/2019 9:14 PM CDT): Continue clobestasol prn Ureteropelvic junction calculus 10/17/2018 Renal mass 10/05/2018 Primary osteoarthritis 05/22/2018 Resolved Problems Problem Noted Date Diagnosed Date Resolved Date Fatigue 07/31/2024 02/10/2025 Assessment & Plan (07/31/2024 7:32 PM ORTHOTIC/PROSTHETIC PRACTITIONER): Probably multifactorial. Check labs and followup to re-evaluate Dysuria 07/31/2024 02/10/2025 Assessment & Plan (07/31/2024 7:32 PM ORTHOTIC/PROSTHETIC PRACTITIONER): Patient notes increased dysuria symptoms. Will sample today Vertigo 07/31/2024 02/10/2025 Assessment & Plan (07/31/2024 11:08 AM ORTHOTIC/PROSTHETIC PRACTITIONER): Continue PT/vestibular therapy Lumbar back pain 05/22/2024 02/10/2025 Assessment & Plan (07/31/2024 7:32 PM ORTHOTIC/PROSTHETIC PRACTITIONER): Continue PT at [place] Continue to monitor Assessment & Plan (05/22/2024 3:03 PM CDT): Persistent low back pain. By her history I almost suspect spinal stenosis. Will start with x-ray and physical therapy to help with low back pain as well as gait training and fall risk reduction. If this does not get her relief will consider further workup with MRI of the lumbar spine. She is in agreement with the plan Prophylactic measure 05/22/2024 024 Acute cystitis with hematuria 05/22/2024 02/10/2025 Assessment & Plan (05/22/2024 3:01 PM CDT): UTI confirmed with return of the labs. Will monitor stated above Elevated serum cholesterol 02/06/2024 0 05/22/2024 Overview (02/06/2024): Encouraged pt to f/u w PCM Finding of above normal blood pressure 02/06/2024 05/22/2024 Inadequate cervical cytology sample 02/06/2024 05/22/2024 Sinusitis 02/06/2024 05/22/2024 Overview (02/06/2024): will try levaquin 750mg qd for 5 days, increase fluids and follow up as needed. Viral warts 02/06/2024 02/10/2025 Overview (02/06/2024): Cryotherapy performed - pt to RTC if wart is persistent in 2-3 weeks Urgency of urination 12/04/2023 024 Assessment & Plan (12/04/2023 4:24 PM CDT): Patient has noticed increased urgencyat times. Only a mild dysuria. Recommend checking for infection with the dip and culture. If negative for infection, may consider an overactive bladder medication Hypernatremia 12/04/2023 05/22/2024 Assessment & Plan (05/22/2024 2:59 PM CDT): Continue to monitor labs she has had low-sodium Assessment & Plan (12/04/2023 4:25 PM CDT): Recheck labs Urinary urgency 11/17/2023 12/04/2023 Morbid obesity 11/04/2021 12/04/2023 Assessment & Plan (11/21/2022 5:21 PM ORTHOTIC/PROSTHETIC PRACTITIONER): Discussed the patient's BMI. The BMI is above average. BMI management plan is completed. BMI Follow-up includes: nutrition counseling, exercise counseling and education provided.\ Patient has an obesity-related condition (not limited to: hypertension, obstructive sleep apnea, osteoarthritis, hyperlipidemia, diabetes, etc.). Therefore, morbid obesity may be documented for patients with a BMI between 35.00-39.99. Assessment & Plan (11/04/2021 10:54 AM ORTHOTIC/PROSTHETIC PRACTITIONER): Obesity is unchanged. Discussed the patient's BMI. The BMI is above average. BMI management plan is completed. BMI Follow-up includes: nutrition counseling, exercise counseling and education provided. BMI 35.0-35.9,adult 11/04/2021 02/11/20 25 Assessment & Plan (07/31/2024 10:11 AM ORTHOTIC/PROSTHETIC PRACTITIONER): Discussed the patient's BMI. The BMI is above average. BMI management plan is completed. BMI Follow-up includes: nutrition counseling, exercise counseling and education provided. Assessment & Plan (05/22/2024 2:59 PM CDT): Discussed the patient's BMI. The BMI is above average. BMI management plan is completed. BMI Follow-up includes: nutrition counseling, exercise counseling and education provided. Assessment & Plan (12/04/2023 4:24 PM CDT): Discussed the patient's BMI. The BMI is above average. BMI management plan is completed. BMI Follow-up includes: nutrition counseling, exercise counseling and education provided. Assessment & Plan (11/21/2022 5:21 PM ORTHOTIC/PROSTHETIC PRACTITIONER): Discussed the patient's BMI. The BMI is above average. BMI management plan is completed. BMI Follow-up includes: nutrition counseling, exercise counseling and education provided. Assessment & Plan (11/04/2021 10:54 AM ORTHOTIC/PROSTHETIC PRACTITIONER): Obesity is unchanged. Discussed the patient's BMI. The BMI is above average. BMI management plan is completed. BMI Follow-up includes: nutrition counseling, exercise counseling and education provided. Chronic pain of left knee 07/12/2021 Assessment & Plan (12/04/2023 4:24 PM CDT): Patient continues to note knee pain. Recommend PT and order provided Assessment & Plan (07/12/2021 5:43 PM CDT): Check xrays. Recommend PT. Order provided Chronic bilateral low back p ain without sciatica 07/12/2021 05/22/2024 Assessment & Plan (05/22/2024 2:59 PM CDT): Persistent low back pain. By her history I almost suspect spinal stenosis. Will start with x-ray and physical therapy to help with low back pain as well as gait training and fall risk reduction. If this does not get her relief will consider further workup with MRI of the lumbar spine. She is in agreement with the plan Assessment & Plan (07/12/2021 5:43 PM CDT): Check xrays. Recommend PT. Order provided Obesity (BMI 30-39.9) 07/08/20212021 Assessment & Plan (07/08/2021 11:17 AM CDT): Obesity is unchanged. Discussed the patient's BMI. The BMI is above average. BMI management plan is completed. BMI Follow-up includes: nutrition counseling, exercise counseling and education provided. BMI 35.0-35.9,adult 07/08/2021 11/04/19 Assessment & Plan (07/08/2021 11:17 AM CDT): Obesity is unchanged. Discussed the patient's BMI. The BMI is above average. BMI management plan is completed. BMI Follow-up includes: nutrition counseling, exercise counseling and education provided. Medicare annual wellness visit, subsequent 10/26/2020 05/22/2024 Assessment & Plan (12/04/2023 4:22 PM CDT): Encouraged healthy lifestyle, good nutrition and exercise. Encouraged Calcium and Vitamin D and weight bearing exercise for bone health. Reviewed immunizations. Reviewed age appropirate screenings. Medicare Wellness Documentation is completed within the chart Assessment & Plan (11/21/2022 5:20 PM ORTHOTIC/PROSTHETIC PRACTITIONER): Encouraged healthy lifestyle, good nutrition and exercise. Encouraged Calcium and Vitamin D and weight bearing exercise for bone health. Reviewed immunizations. Reviewed age appropirate screenings. Medicare Wellness Documentation is completed within the chart Assessment & Plan (11/28/2021 10:04 PM ORTHOTIC/PROSTHETIC PRACTITIONER): Encouraged healthy lifestyle, good nutrition and exercise. Encouraged Calcium and Vitamin D and weight bearing exercise for bone health. Reviewed immunizations. Reviewed age appropirate screenings. Medicare Wellness Documentation is completed within the chart Assessment & Plan (11/01/2020 8:21 PM ORTHOTIC/PROSTHETIC PRACTITIONER): Encouraged healthy lifestyle, good nutrition and exercise. Encouraged Calcium and Vitamin D and weight bearing exercise for bone health. Reviewed immunizations. Reviewed age appropirate screenings. Medicare Wellness Documentation is completed within the chart Chronic pain of right upper extremity 10/26/2019 05/22/2024 Assessment & Plan (10/26/2019 7:48 PM ORTHOTIC/PROSTHETIC PRACTITIONER): This is a significant, separately identifiable problem that was evaluated and managed on the same day as the wellness exam Discussed treatment options. Offered xray, but probably won't reveal changes. Recommend Tylenol. Avoids NSAIDs. Start PT. Order provided. Other fatigue 10/26/2019 10/26/2020 Assessment & Plan (10/26/2019 7:48 PM ORTHOTIC/PROSTHETIC PRACTITIONER): Obesity is unchanged. Discussed the patient's BMI. The BMI is above average. BMI management plan is completed. BMI Follow-up includes: nutrition counseling, exercise counseling and education provided. Need for 23-polyvalent pneum ococcal polysaccharide vaccine 10/26/2019 10/26/2020 Assessment & Plan (10/26/2019 7:49 PM ORTHOTIC/PROSTHETIC PRACTITIONER): Updated in office today Medicare annual wellness visit, initial 10/22/2019 10/26/2020 Assessment & Plan (10/26/2019 7:48 PM ORTHOTIC/PROSTHETIC PRACTITIONER): Encouraged healthy lifestyle, good nutrition and exercise. Encouraged Calcium and Vitamin D and weight bearing exercise for bone health. Reviewed immunizations Reviewed age appropirate screenings. Documentation is on the chart Vaccine for VZV (varicella-zoster virus) 04/20/2019 10/22/2019 Assessment & Plan (04/20/2019 9:20 PM CDT): Updated in office by her request. Encouraged her to inquire about cost [place] just get it here. BMI 35.0-35.9,adult 04/09/2019 01/02/20 Assessment & Plan (11/01/2020 8:21 PM ORTHOTIC/PROSTHETIC PRACTITIONER): Obesity is unchanged. Discussed the patient's BMI. The BMI is above average. BMI management plan is completed. BMI Follow-up includes: nutrition counseling, exercise counseling and education provided. Assessment & Plan (10/26/2019 7:46 PM ORTHOTIC/PROSTHETIC PRACTITIONER): Obesity is unchanged. Discussed the patient's BMI. The BMI is above average. BMI management plan is completed. BMI Follow-up includes: nutrition counseling, exercise counseling and education provided. Assessment & Plan (04/20/2019 9:15 PM CDT): Obesity is unchanged. Discussed the patient's BMI. The BMI is above average. BMI management plan is completed. BMI Follow-up includes: nutrition counseling, exercise counseling and education provided. Chronic kidney disease, stage 3 04/07/2019 11/14/2022 Assessment & Plan (10/26/2019 7:48 PM ORTHOTIC/PROSTHETIC PRACTITIONER): .Avoid nephrotoxic drugs including NSAIDs. Monitor labs. Check labs Assessment & Plan (04/20/2019 9:19 PM CDT): Avoid nephrotoxic drugs including NSAIDs. Monitor labs. Check labs for stability Lichen sclerosus 10/02/2018 10/26/2020 CKD (chronic kidney disease) stage 3, GFR 30-59 ml/min 06/01/2018 11/28/2021 Other obesity due to excess calories 05/22/2018 11/14/2022 Body mass index (BMI) of 34.0-34.9 in adult 05/22/2018 01/01/2021 Assessment & Plan (10/29/2020 10:56 AM ORTHOTIC/PROSTHETIC PRACTITIONER): Obesity is unchanged. Discussed the patient's BMI. The BMI is above average. BMI management plan is completed. BMI Follow-up includes: nutrition counseling, exercise counseling and education provided. Gastroesophageal reflux dise ase without esophagitis 05/22/2018 01/01/2021 Assessment & Plan (11/01/2020 8:20 PM ORTHOTIC/PROSTHETIC PRACTITIONER): Continue PPI Mixed hyperlipidemia 05/22/2018 021 Immunizations Immunization Administration Dates Next Due Hep A / Hep B 02/08/2018,01/09/2018 Hep A, Adult 03/07/1997,07/13/1996 Hep B Vaccine 07/11/2018 Influenza, Quadrivalent, Hig h Dose, Preservative Free, Intrr 07/15/2020 Influenza, Quadrivalent, Spl it, Intramuscular 08/15/2014 Influenza, Quadrivalent, Spl it, Preservative Free, Intramuscular 07/07/2018,08/04/2015 Influenza, Split 09/02/2010,08/26/2005 Influenza, Trivalent, Cell Culture-based MDCK, Preservative Free, Antibiotic Free, Intramuscular 08/15/2017 Influenza, Trivalent, High D ose, Split, Preservative Free, Intramuscular 07/14/2019,06/26/2018 Influenza, Trivalent, IM (MDV) 07/26/2013,2011 Influenza, Trivalent, Preser vative Free, Intramuscular 07/14/2016,10/18/2011 Influenza, Unspecified 06/16/2024,2023(Deferred: Patient Refused),07/20/2022,07/08/2021, 020 Influenza, Whole 08/02/2003, 9,07/31/1998,07/18 Moderna SARS-CoV-2 Monovalen t Vaccination (12+ YRS) 06/16/2024,07/20/2022 Pfizer SARS-CoV-2 Monovalent Vaccination (12+ Yrs) PURPLE 07/02/2021,12/18/2020,10/31/2020 Pneumococcal Conjugate PCV 13 05/22/2018 Pneumococcal Polysaccharide PPV23 10/22/2019 RSV Vaccine, Pref, Recombina nt, Subunit, Adjuvanted, PF, IM (Arexvy) 06/16/2024 Tdap 08/15/2014 ZOSTER Recombinant 04/09/2019,01/09/2018 Social History Tobacco Use Types Packs/Day Years Used Date Smoking Tobacco: Former Cigarettes 2 34 1 974 - 2008 Smokeless Tobacco: Never Tobacco Cessation:Counseling Given: Not Answered Alcohol Use Standard Drinks/Week Comments Yes 1 [...] on file Legal Sex Female 7:35 AM ORTHOTIC/PROSTHETIC PRACTITIONER Gender Identity Female 08/31/2021 1:50 PM ORTHOTIC/PROSTHETIC PRACTITIONER Sexual Orientation Not on file Last Filed Vital Signs Vital Sign Reading Time Taken Comments Blood Pressure 120/76 01/28/2025 11:55 AM CDT Pulse 72 01/28/2025 11:55 AM CDT Temperature 36.6 C (97.9 F) 01/28/2025 11:55 AM CDT Respiratory Rate 14 02/06/2024 1:51 PM CDT Oxygen Saturation 97% 01/28/2025 11:55 AM CDT Inhaled Oxygen Concentration - - Weight 89.9 kg (198 lb 4.8 oz) 01/28/2025 11:55 AM CDT Height 157.6 cm (5' 2.05) 01/28/2025 11:55 AM C DT Body Mass Index 36.21 01/28/2025 11:55 AM CDT Plan of Treatment Not on file Medical Devices Implanted Type Area Right Of Way Cutter Device Identifier Shelf Expiration Date Model / Serial / Lot Tornier Inc [id number] Tornier Aequalis Perform 15mm Press Fit Long Post Shoulder - [id number] - [id number] Implanted:Qty: 1 on 10/01/2020 by Phan Art MD at [facility] [employer] [id number] 01/16/2025 [id number] / [id number] / [id number] Tornier Inc [id number] Tornier Aequalis Perform 25mm Reverse Shoulder Standard Baseplate - [id number] - [id number] Implanted:Qty: 1 on 10/01/2020 by Phan Art MD at [facility] Pheedo [id number] 08/29/2025 [id number] / [id number] / [id number] Tornier Inc [id number] Aequalis Perform Reversed 5mm 42mm Peripheral Glenoid Screw - [id number] Implanted:Qty: 1 on 10/01/2020 by Phan Art MD at [facility] [employer] [id number] / / Tornier Inc [id number] Aequalis Perform Reversed 5mm 38mm Peripheral Glenoid Screw - [id number] Implanted:Qty: 1 on 10/01/2020 by Phan Art MD at [facility] [employer] [id number] / / Tornier Inc [id number] Tornier Aequalis Perform 36mm Lateralize Reverse Shoulder +3mm - [id number] - [id number] Implanted:Qty: 1 on 10/01/2020 by Phan Art MD at [facility] [employer] [id number] 05/05/2025 [id number] / [id number] / [id number] Mettl Inc [id number] Insert Perform [id number] - [id number] Implanted:Qty: 1 on 10/01/2020 by Phan Art MD at [facility] [employer] [id number] / / [id number] Pheedo Dwx2ss Stem Perform Sz 2 Humeral - [id number] Implanted:Qty: 1 on 10/01/2020 by Phan Art MD at [facility] [employer] [id number] / / [id number] Box & Nephew/Richco/Or tho [id number] Sari Ii 32mm Resurfacing Knee Component Patellar Oxinium - [id number] Implanted:Qty: 1 on 11/26/2021 by Navjot Javed MD at [facility] Left: Knee Box & Nephew/Richco/O rtho [id number] 03/08/2031 [id number] / / [id number] Box & Nephew/Richco/Or tho [id number] Legion 11mm Cruciate Retaining High Flexion Knee 3-4 Insert - [id number] Implanted:Qty: 1 on 11/26/2021 by Navjot Javed MD at [facility] Left: Knee Box & Nephew/Richco/O rtho [id number] 06/07/2031 [id number] / / [id number] Box & Nephew/Richco/Or tho [id number] Legion Cemented Male Taper Knee Left 4 Baseplate Tibial Titanium - [id number] Implanted:Qty: 1 on 11/26/2021 by Navjot Javed MD at [facility] Left: Knee Box & Nephew/Richco/O rtho [id number] 01/05/2031 [id number] / / [id number] Box & Nephew/Richco/Or tho [id number] Sari Ii Legion Spc Cruciate Retain Knee Left 5 Component - [id number] Implanted:Qty: 1 on 11/26/2021 by Navjot Javed MD at [facility] Left: Knee Box & Nephew/Richco/O rtho 04/22/2031 [id number] / / [place] [employer] 6191-1-010 Simplex P Radiopaque Full Dose Cement Bone Sterile - [id number] Implanted:Qty: 2 on 11/26/2021 by Navjot Javed MD at [facility] [employer] [id number] 02/24/2024 6191-1-010 / / [id number] Explanted Type Area Right Of Way Cutter Device Identifier Shelf Expiration Date Model / Serial / Lot Pheedo [id number] Guide Pin Perform 3.0 X 100mm - [id number] Explanted:Qty: 1 on 10/01/2020 at [facility] [employer] [id number] / / Procedures Procedure Name Priority Date/Time Associated Diagnosis Comments TSH Routine 02/11/2025 1:25 PM CDT Fatigue, unspecified type VITAMIN D 25 HYDROXY Routine 02/11/2025 1:25 PM CDT BMI 36.0-36.9,adult Morbid obesity (HCC) Fatigue, unspecified type VITAMIN B12 Routine 02/11/2025 1:25 PM CDT Fatigue, unspecified type LIPID PANEL Routine 02/11/2025 1:25 PM CDT Mixed hyperlipidemia HEMOGLOBIN A1C Routine 02/11/2025 1:25 PM CDT Hyperglycemia COMPREHENSIVE METABOLIC PANEL Routine 02/11/2025 1:25 PM CDT Mixed hyperlipidemia CBC WITH AUTO DIFFERENTIAL Routine 02/11/2025 1:25 PM CDT Other fatigue HM MAMMOGRAPHY Routine 03/12/2024 1:48 PM CDT DEXA SCAN Routine 01/29/2021 COLONOSCOPY Routine 04/21/2016 from Last 3 Months or Most Recently Relevant to Health Maintenance Results * CBC with auto differential (02/11/2025 1:25 PM CDT) WBC 5.7 3.8 - 10.8 Thousand/u L [facility] RBC, POC 4.33 3.80 - 5.10 Million/uL [facility] Hgb 13.0 11.7 - 15.5 g/dL [facility] Hct 40.4 35.0 - 45.0 % [facility] MCV 93.3 80.0 - 100.0 fL [facility] MCH 30.0 27.0 - 33.0 pg [facility] MCHC 32.2 32.0 - 36.0 g/dL [facility] Comment: For adults, a slight decrease in the calculated MCHC value (in the range of 30 to 32 g/dL) is most likely not clinically significant; however, it should be interpreted with caution in correlation with other red cell parameters and the patient's clinical condition. Rdw 12.0 11.0 - 15.0 % [facility] Neutrophils, abs 3,255 1,500 - 7,800 cells/uL [facility] Lymphocytes, abs 1,733 850 - 3,900 cells/uL [facility] Monocyte abs 416 200 - 950 cells/uL [facility] Eosinophils, abs 279 15 - 500 cells/uL [facility] Basophils, abs 17 0 - 200 cells/uL [facility] Neutrophils 57.1 % [facility] Lymphocyte pct 30.4 % [facility] Monocytes 7.3 % [facility] Eosinophils 4.9 % [facility] Basophils 0.3 % [facility] Platelets TNP Thousand/u L [facility] Comment: TEST(S) NOT PERFORMED: PLATELET COUNT Unable to report due to significant platelet clumping. Platelet estimate appears normal. Blood 02/11/2025 1:25 PM CDT 02/11/2025 1:26 PM CDT Narrative [facility] - 02/12/2025 9:32 AM CDT FASTING:YES FASTING: YES Jazz CAMPBELL LAB BLOOD ORDERABLES Final Result Performing Organization Address [facility] Co de Phone Number [facility] [address] [place] [address] * Vitamin D 25 hydroxy (02/11/2025 1:25 PM CDT) Vitamin D 25-OH 32 30 - 100 ng/mL [facility] Comment: Vitamin D Status 25-OH Vitamin D: Deficiency: <20 ng/mL Insufficiency: 20 - 29 ng/mL Optimal: > or = 30 ng/mL For 25-OH Vitamin D testing on patients on D2-supplementation and patients for whom quantitation of D2 and D3 fractions is required, the [facility](TM) 25-OH VIT D, (D2,D3), LC/MS/MS is recommended: order code 30515 (patients >2yrs). See Note 1 Note 1 For additional information, please refer to http://education.Hövding/faq/CSX531 (This link is being provided for informational/ educational purposes only.) Blood 02/11/2025 1:25 PM CDT 02/11/2025 1:26 PM CDT Narrative [facility] - 02/12/2025 9:32 AM CDT FASTING:YES FASTING: YES Jazz CAMPBELL LAB BLOOD ORDERABLES Final Result Performing Organization Address [facility]/ZIP Co de Phone Number [facility] [address] [place] [address] * TSH (02/11/2025 1:25 PM CDT) TSH 1.82 0.40 - 4.50 mIU/L [facility] Blood 02/11/2025 1:25 PM CDT 02/11/2025 1:26 PM CDT Narrative [facility] - 02/12/2025 9:32 AM CDT FASTING:YES FASTING: YES Jazz CAMPBELL LAB BLOOD ORDERABLES Final Result Performing Organization Address [facility] [[email or web address]] de Phone Number [facility] [facility] [address] [place] [address] * Hemoglobin A1c (02/11/2025 1:25 PM CDT) Hgb A1C 5.1 <5.7 % [facility] Comment: For the purpose of screening for the presence of diabetes: <5.7% Consistent with the absence of diabetes 5.7-6.4% Consistent with increased risk for diabetes (prediabetes) > or =6.5% Consistent with diabetes This assay result is consistent with a decreased risk of diabetes. Currently, no consensus exists regarding use of hemoglobin A1c for diagnosis of diabetes in children. According to [place] Diabetes Association (ADA) guidelines, hemoglobin A1c <7.0% represents optimal control in non- diabetic patients. Different metrics may apply to specific patient populations. Standards of Medical Care in Diabetes(ADA). Blood 02/11/2025 1:25 PM CDT 02/11/2025 1:26 PM CDT Narrative [facility] - 02/12/2025 9:32 AM CDT FASTING:YES FASTING: YES Jazz CAMPBELL LAB BLOOD ORDERABLES Final Result Performing Organization Address [facility] Co de Phone Number [facility] [address] [place] [address] * Vitamin B12 (02/11/2025 1:25 PM CDT) Vitamin B12 446 200 - 1,100 pg/mL [facility] Blood 02/11/2025 1:25 PM CDT 02/11/2025 1:26 PM CDT Narrative [facility] - 02/12/2025 9:32 AM CDT FASTING:YES FASTING: YES Jazz CAMPBELL LAB BLOOD ORDERABLES Final Result Performing Organization Address City/[facility]/ZIP Co de Phone Number JANNA [facility] [address] [place] [address] * (ABNORMAL) Lipid panel (02/11/2025 1:25 PM CDT) Cholesterol 175 <200 mg/dL [facility] HDL 39(L) > OR = 50 mg/dL [facility] Triglycerides 126 <150 mg/dL [facility] LDL 112(H) mg/dL (calc) [facility] Comment: Reference range: <100 Desirable range <100 mg/dL for primary prevention; <70 mg/dL for patients with CHD or diabetic patients with > or = 2 CHD risk factors. LDL-C is now calculated using the Alicia calculation, which is a validated novel method providing better accuracy than the Friedewald equation in the estimation of LDL-C. Ludwin MORRIS et al. CLARIBEL. 2013;310(19): 3077-8801 (http://education.Hövding/faq/NCW377) Chol/HDL ratio 4.5 <5.0 (calc) [facility] Non-HDL, (LDL+VLDL) 136(H) <130 mg/dL (calc) [facility] Comment: For patients with diabetes plus 1 major ASCVD risk factor, treating to a non-HDL-C goal of <100 mg/dL (LDL-C of <70 mg/dL) is considered a therapeutic option. Blood 02/11/2025 1:25 PM CDT 02/11/2025 1:26 PM CDT Narrative [facility] - 02/12/2025 9:32 AM CDT FASTING:YES FASTING: YES Jazz CAMPBELL LAB BLOOD ORDERABLES Final Result Performing Organization Address City/[facility]/ZIP Co de Phone Number JANNA [facility] [address] [place] [address] * (ABNORMAL) Comprehensive metabolic panel (02/11/2025 1:25 PM CDT) Pathologist [facility] Glucose 76 65 - 99 mg/dL [facility] Comment: Fasting reference interval BUN 11 7 - 25 mg/dL [facility] Creatinine 1.01(H) 0.60 - 1.00 mg/dL [facility] eGFR 60 > OR = 60 mL/min/1.7 3m2 [facility] BUN/creat ratio 11 6 - 22 (calc) [facility] Sodium 141 135 - 146 mmol/L [facility] Potassium, pl 4.1 3.5 - 5.3 mmol/L [facility] Chloride 108 98 - 110 mmol/L [facility] CO2 26 20 - 32 mmol/L [facility] Calcium 9.2 8.6 - 10.4 mg/dL [facility] Protein, sr 6.4 6.1 - 8.1 g/dL [facility] Albumin 3.9 3.6 - 5.1 g/dL [facility] GLOBULIN 2.5 1.9 - 3.7 g/dL (calc) [facility] Alb/glob ratio 1.6 1.0 - 2.5 (calc) [facility] Bilirubin, total 0.7 0.2 - 1.2 mg/dL [facility] Alk phos 84 37 - 153 U/L [facility] AST 12 10 - 35 U/L [facility] ALT (SGPT) 11 6 - 29 U/L [facility] Blood 02/11/2025 1:25 PM CDT 02/11/2025 1:26 PM CDT Narrative [facility] - 02/12/2025 9:32 AM CDT FASTING:YES FASTING: YES Jazz CAMPBELL LAB BLOOD ORDERABLES Final Result [facility] [address] [place] [address] * HM MAMMOGRAPHY (03/12/2024 1:48 PM CDT) Mammography Normal Historical Provider HEALTH MAINTENANCE Edited Result - Final * DEXA SCAN (01/29/2021) Historical Provider HEALTH MAINTENANCE Final Result * COLONOSCOPY (04/21/2016) Colonoscopy Abnormal Comment:hyperplastic polyp Historical Provider HEALTH MAINTENANCE Final Result from Last 3 Months or Most Recently Relevant to Health Maintenance Insurance MEDICARE [facility] FOR LIFE MEDICARE FOR LIFE MEDICARE FOR LIFE Advance Directives For more information, please contact: [phone] Documents on File Type Date Recorded Patient Mechanical Planner Expl anation ADVANCE DIRECTIVE 01/28/2025 12:45 PM POLST ADVANCE DIRECTIVE 10/22/2019 * Full Code (Latest Code Status on File) Date Activated Date Inactivated Comments 11/26/2021 8:15 PM 11/28/2021 5:48 PM * Full Code Date Activated Date Inactivated Comments 10/01/2020 5:44 PM 10/02/2020 3:50 PM Care Teams Machine Setter Supervisor Relationship Specialty Start Date End Date Jazz Corrales PA [address] [place] [address] PCP - General Internal Medicine 03/06/19
--- OUTSIDE RECORDS SUMMARY | 2025-03-13 12:11 | XMS_ITS | Encounter Summary ---
Author Organization [facility] Healthcare Address [address] [place] [address] Care Team Providers Care Shade Hanger Name Role Phone Jazz Corrales Primary Care Provider +1- [phone] Encounter Details Date Type Department Care Team (Latest Contact Info) Description 02/13/2025 Results Follow-Up [facility] Medical Group Family Medicine [address] [place] [address] Jazz Corrales PA 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
--- OUTSIDE RECORDS SUMMARY | 2025-03-13 12:11 | XMS_ITS | Encounter Summary ---
Author Organization [facility] Care Team Providers Care Hybrid Car Mechanic Name Role Phone Jazz Corrales Primary Care Provider +1- [phone] Encounter Details Date Type Department Care Team (Latest Contact Info) Description 04/21/2016 Orders Only [facility] CLINCONV ProviderKorey MD [address] [place] [address] Social History Tobacco Use Types Packs/Day Years Used Date Smoking Tobacco: Never Assessed Comments Unknown Sex and Gender Information Value Date Recorded Sex Assigned at Not on file Legal Sex Female 7:35 AM SENIOR ASSISTANT MANAGER Gender Identity Female 08/31/2021 1:50 PM SENIOR ASSISTANT MANAGER Sexual Orientation Not on file documented as of this encounter Plan of Treatment Not on file documented as of this encounter Procedures Procedure Name Priority Date/Time Associated Diagnosis Comments COLONOSCOPY - SCAN 10/02/2018 12 :00 AM SENIOR ASSISTANT MANAGER documented in this encounter Results * COLONOSCOPY - SCAN (10/02/2018 12:00 AM SENIOR ASSISTANT MANAGER) Narrative 10/02/2018 12:00 AM SENIOR ASSISTANT MANAGER Ordered by an unspecified provider. Historical Provider Final Res ult documented in this encounter Visit Diagnoses Not on filedocumented in this encounter Care Teams Hybrid Car Mechanic Relationship Specialty Start Date End Date Jazz Corrales PA [address] [place] [address] PCP - General Internal Medicine 03/06/19 documented as of this encounter
--- OUTSIDE RECORDS SUMMARY | 2025-03-13 12:11 | XMS_ITS | Encounter Summary ---
Author Organization [facility] Healthcare Address [address] [place] [address] Care Team Providers Care Devulcanizer Tender Name Role Phone Jazz Corrales Primary Care Provider +1- [phone] Reason for Visit * Reason Onset Date Comments Appointment Request 03/08/2025 Encounter Details Date Type Department Care Team (Late st Contact Info) Description 03/08/2025 Telephone [facility] Medical Group Family Medicine [address] [place] [address] Jazz Corrales PA [address] [place] [address] Appointment Request Social History Tobacco Use Types Packs/Day Years [...] on file Legal Sex Female 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 Ellie is not happy with the run around she's getting for a return phone call and goes back from break in 10mn. Call warm transferred to the backline. Does message need to be routed? No Reason for Warm Transfer: Patient returning call from practice Practice Accepted the Warm Transfer? Yes Additional Comments If YES above, and no barriers. * Telephone Encounter - Mena Sharif LPN - 03/11/2025 10:18 AM CDT Called and spoke with pt. Pt scheduled for LINDA appt. * Telephone Encounter - Mena Sharif LPN - 03/08/2025 12:36 PM CDT Pt is still inpatient at [facility]. Called and LVM for Ellie Healy, friend who is on HIPAA. To check on status of patient. * Telephone Encounter - Mena Sharif LPN - 03/08/2025 9:37 AM CDT No phone number was taken for Kaelyn Galeano, daughter in law. Unable to return call. Kaelyn is also not HIPAA verified. Cannot make appt with her or discuss medical information. Called patient's phone with no answer and VM box not set up. Unable to leave message. * Telephone Encounter - Álvaro Castillo MA - 03/08/2025 9:28 AM CDT Appointment Request What visit type does the patient need? Visit Type: Established Patient What is the reason for the visit? Kaelyn, daughter in law is seeking an appt for patient to see PCP next week to obtain referrals for abnormal gait and dementia. Kaelyn states urgency due to new diagnosis and being a fall risk. What is the reason we were unable to schedule the appointment? Current appointment availability didnot meet patient's need. If applicable, were all members of the patient's PCP care team offered (e.g., nurse practioner(s), physician financial administrative assistant(s)) ? N/A Additional Comments: call back needed please Does message need to be routed? Yes-Action Needed documented in this encounter Plan of Treatment Not on file documented as of this encounter Visit Diagnoses Not on filedocumented in this encounter Care Teams Devulcanizer Tender Relationship Specialty Start Date End Date Jazz Corrales PA [address] [facility] [place] [address] PCP - General Internal Medicine 03/06/19 documented as of this encounter
--- OUTSIDE RECORDS SUMMARY | 2025-03-13 12:11 | XMS_ITS | Encounter Summary ---
Author Organization [facility] Facility Care Team Providers Care Product Advisor Name Role Phone Jazz Corrales Primary Care Provider [phone]- [phone] Encounter Details Date Type Department Care Team (Latest Contact Info) Description 10/02/2018 Orders Only [facility] Provider, MD Korey [address] [place], [place] [id number] Social History Tobacco Use Types Packs/Day Years Used Date Smoking Tobacco: Never Assessed Comments Unknown Sex and Gender Information Value Date Recorded Sex Assigned at Not on file Legal Sex Female 7:35 AM [employer] Gender Identity Female 08/31/2021 1:50 PM [employer] Sexual Orientation Not on file documented as of this encounter Plan of Treatment Not on file documented as of this encounter Procedures Procedure Name Priority Date/Time Associated Diagnosis Comments CARDIOLOGY REPORT 10/02/2018 12: 00 AM [employer] documented in this encounter Results * CARDIOLOGY REPORT (10/02/2018 12:00 AM [employer]) Anatomical Region Laterality Modality Other Narrative 10/02/2018 12:00 AM [employer] Ordered by an unspecified provider. Historical Provider [facility] NAVEED SALAZAR Final Result documented in this encounter Visit Diagnoses Not on filedocumented in this encounter Care Teams Product Advisor Relationship Specialty Start Date End Date Jazz Corrales PA [address] [place] [address] PCP - General Internal Medicine 03/06/19 documented as of this encounter
--- OUTSIDE RECORDS SUMMARY | 2025-03-13 12:11 | XMS_ITS | Clinical Summary ---
Author Organization [facility] [address] [facility] Address [address] [place] [address] Care Team Providers Care Skills Auditor Name Role Phone Jazz Corrales Primary Care Provider [phone]- [phone] Allergies Active Allergy Reactions Criticality Noted Date Comments Amoxicillin-Pot Clavulanate Stomach upset,Vomiting Low 12/20/2005 GI upset Barium Sulfate Rash Medium 12/30/2006 Reaction(s): Rash, itching Clavulanic Acid Stomach upset Low 11/14/2018 Stomach/GI Upset Other Rash Medium 11/14/2018 Rash/ Exlax Medications calcium carbonate (CALCIUM 500 ORAL)Indication s:supplement Take 1 tablet by mouth marklogic developer before breakfast Active diphenhydrAMINE (BENADRYL) 25 mg capsule Take 1 tablet/capsul e (25 mg total) by mouth nightly as needed for allergies Active cholecalciferol (VITAMIN D-3) 2000 unit tabletIndicatio ns:Vitamin D Deficiency Take 1 tablet (2,000 Units total) by mouth marklogic developer before breakfast 90 tablet 2 3 Active [...] 1 capsule (40 mg total) by mouth marklogic developer before breakfast 90 capsule 2 5 Active [...] 05/22/2024 Assessment & Plan (07/31/2024 7:30 PM ECONOMICS ANALYST): Continue per Dr. Schafer. Assessment & Plan [...] provided Assessment & Plan (07/31/2024 7:31 PM ECONOMICS ANALYST): Mammogram order provided Assessment & Plan (11/21/2022 5:21 PM ECONOMICS ANALYST): Mammogram order provided Assessment & Plan (11/28/2021 10:04 PM ECONOMICS ANALYST): Mammogram order provided Assessment & Plan (11/01/2020 8:22 PM ECONOMICS ANALYST): Mammogram order provided Osteopenia of lumbar spine 11/01/2020 Assessment & Plan (11/21/2022 5:21 PM ECONOMICS ANALYST): Check DEXA Assessment & Plan (11/01/2020 8:22 PM ECONOMICS ANALYST): Continue calcium, vitamin D and exercise. Check DXA Other fatigue 11/01/2020 Assessment & Plan (02/10/2025 8:09 PM CDT): Probably multifactorial. Check labs and followup to re-evaluate Assessment & Plan (05/22/2024 2:59 PM CDT): Probably multifactorial. Check labs and followup to re-evaluate Assessment & Plan (11/21/2022 5:21 PM ECONOMICS ANALYST): Probably multifactorial. Check labs and followup to re-evaluate Assessment & Plan (11/01/2020 8:22 PM ECONOMICS ANALYST): Probably multifactorial. Check labs and followup to re-evaluate At risk for obstructive sleep apnea 09/24/2020 Complete tear of right rotator cuff 09/17/2020 Overview (09/17/2020): Added automatically from request for surgery [id number] History of kidney stones 04/20/2019 Overview (04/20/2019): 2019 - lithothripsy Assessment & Plan (04/20/2019 9:20 PM CDT): 2019 lithotripsy Vitamin D deficiency 04/20/2019 Assessment & Plan (02/10/2025 8:08 PM CDT): Supplement Assessment & Plan (07/31/2024 7:31 PM ECONOMICS ANALYST): supplement Assessment & Plan (05/22/2024 2:59 PM CDT): Supplement Assessment & Plan (11/21/2022 5:20 PM ECONOMICS ANALYST): Supplement Assessment & Plan (11/28/2021 10:04 PM ECONOMICS ANALYST): Supplement Assessment & Plan (11/01/2020 8:17 PM ECONOMICS ANALYST): supplement Assessment & Plan (10/26/2019 7:45 PM ECONOMICS ANALYST): supplement Assessment & Plan (04/20/2019 9:17 PM [...] 35.00-39.99. Assessment & Plan (07/31/2024 7:31 PM ECONOMICS ANALYST): Discussed the patient's BMI. The BMI is [...] provided. Assessment & Plan (10/26/2019 7:45 PM ECONOMICS ANALYST): Obesity is unchanged. Discussed the patient's BMI. [...] 04/09/2019 Assessment & Plan (07/31/2024 7:31 PM ECONOMICS ANALYST): Check DEXA Assessment & Plan (11/01/2020 8:20 PM ECONOMICS ANALYST): Check DXA Assessment & Plan (10/26/2019 7:45 PM ECONOMICS ANALYST): stable Assessment & Plan (04/20/2019 9:14 PM CDT): Check DXA Mixed hyperlipidemia 04/07/2019 Assessment & Plan (02/10/2025 8:09 PM CDT): Encouraged patient to follow low fat/low chol diet like the Mediterranean diet. Increase good fats in the diet. Increase exercise. Monitor labs as needed. Continue atorvastatin Assessment & Plan (07/31/2024 7:30 PM ECONOMICS ANALYST): Encouraged patient to follow low fat/low chol [...] atorvastatin Assessment & Plan (11/21/2022 5:19 PM ECONOMICS ANALYST): Encouraged patient to follow low fat/low chol diet like the Mediterranean diet. Increase good fats in the diet. Increase exercise. Monitor labs as needed. Continue statin Assessment & Plan (11/28/2021 10:03 PM ECONOMICS ANALYST): Encouraged patient to follow fat/low chol diet like the Mediterranean diet. Increase good fats in the diet. Increase exercise. Monitor labs as needed. Continue atorvastatin Assessment & Plan (11/01/2020 8:21 PM ECONOMICS ANALYST): Encouraged patient to follow fat/low chol diet like the Mediterranean diet. Increase good fats in the diet. Increase exercise. Monitor labs as needed. Continue statin Assessment & Plan (10/26/2019 7:46 PM ECONOMICS ANALYST): Encouraged patient to continue low fat/low chol [...] able Assessment & Plan (07/31/2024 7:30 PM ECONOMICS ANALYST): Continue PPI as needed Assessment & Plan (05/22/2024 2:58 PM CDT): Continue with PPI p.r.n.. If she can continue to decrease and use just as needed it is preferred Assessment & Plan (12/04/2023 4:22 PM CDT): Continue omeprazole as needed Assessment & Plan (11/21/2022 5:20 PM ECONOMICS ANALYST): Continue PPI p.r.n. Assessment & Plan (11/28/2021 10:04 PM ECONOMICS ANALYST): Continue PPI Assessment & Plan (07/12/2021 5:44 PM CDT): Continue ppi Assessment & Plan (01/01/2021 10:07 PM CDT): Improved with the PPI. Continue to use for the next 3-4 months then may try to go to everyother day and decrease as tolerated. Continue with behavioral changes. Assessment & Plan (10/26/2019 7:45 PM ECONOMICS ANALYST): Stable with PPI Assessment & Plan (04/20/2019 9:14 PM CDT): Stable with ppi Lichen sclerosus 04/07/2019 Assessment & Plan (02/10/2025 8:09 PM CDT): Continue clobetasol p.r.n. Assessment & Plan (07/31/2024 7:30 PM ECONOMICS ANALYST): Continue clobetasol Use on a regular basis for best control Assessment & Plan (05/22/2024 2:58 PM CDT): Continue with clobetasol to the area at least once a week for maintenance Assessment & Plan (11/21/2022 5:20 PM ECONOMICS ANALYST): Continue clobetasol couple times a week. She states that the lichen sclerosis is well managed. Assessment & Plan (11/28/2021 10:04 PM ECONOMICS ANALYST): Patient continues withClobetasol1 to 2 times a week with good management. Assessment & Plan (11/01/2020 8:20 PM ECONOMICS ANALYST): Continue clobetasol prn Assessment & Plan (10/26/2019 7:46 PM ECONOMICS ANALYST): Continue steroid cream. Followup if itching/irritation doesn't remain managed. Assessment & Plan (04/20/2019 9:14 PM CDT): Continue clobestasol prn Ureteropelvic junction calculus 10/17/2018 Renal mass 10/05/2018 Primary osteoarthritis 05/22/2018 Resolved Problems Problem Noted Date Diagnosed Date Resolved Date Fatigue 07/31/2024 02/10/2025 Assessment & Plan (07/31/2024 7:32 PM ECONOMICS ANALYST): Probably multifactorial. Check labs and followup to re-evaluate Dysuria 07/31/2024 02/10/2025 Assessment & Plan (07/31/2024 7:32 PM ECONOMICS ANALYST): Patient notes increased dysuria symptoms. Will sample today Vertigo 07/31/2024 02/10/2025 Assessment & Plan (07/31/2024 11:08 AM ECONOMICS ANALYST): Continue PT/vestibular therapy Lumbar back pain 05/22/2024 02/10/2025 Assessment & Plan (07/31/2024 7:32 PM ECONOMICS ANALYST): Continue PT at [facility] Continue to monitor Assessment & Plan (05/22/2024 [...] 12/04/2023 Assessment & Plan (11/21/2022 5:21 PM ECONOMICS ANALYST): Discussed the patient's BMI. The BMI is above average. BMI management plan is completed. BMI Follow-up includes: nutrition counseling, exercise counseling and education provided.\ Patient has an obesity-related condition (not limited to: hypertension, obstructive sleep apnea, osteoarthritis, hyperlipidemia, diabetes, etc.). Therefore, morbid obesity may be documented for patients with a BMI between 35.00-39.99. Assessment & Plan (11/04/2021 10:54 AM ECONOMICS ANALYST): Obesity is unchanged. Discussed the patient's BMI. The BMI is above average. BMI management plan is completed. BMI Follow-up includes: nutrition counseling, exercise counseling and education provided. BMI 35.0-35.9,adult 11/04/2021 02/11/20 25 Assessment & Plan (07/31/2024 10:11 AM ECONOMICS ANALYST): Discussed the patient's BMI. The BMI is [...] provided. Assessment & Plan (11/21/2022 5:21 PM ECONOMICS ANALYST): Discussed the patient's BMI. The BMI is above average. BMI management plan is completed. BMI Follow-up includes: nutrition counseling, exercise counseling and education provided. Assessment & Plan (11/04/2021 10:54 AM ECONOMICS ANALYST): Obesity is unchanged. Discussed the patient's BMI. [...] chart Assessment & Plan (11/21/2022 5:20 PM ECONOMICS ANALYST): Encouraged healthy lifestyle, good nutrition and exercise. Encouraged Calcium and Vitamin D and weight bearing exercise for bone health. Reviewed immunizations. Reviewed age appropirate screenings. Medicare Wellness Documentation is completed within the chart Assessment & Plan (11/28/2021 10:04 PM ECONOMICS ANALYST): Encouraged healthy lifestyle, good nutrition and exercise. Encouraged Calcium and Vitamin D and weight bearing exercise for bone health. Reviewed immunizations. Reviewed age appropirate screenings. Medicare Wellness Documentation is completed within the chart Assessment & Plan (11/01/2020 8:21 PM ECONOMICS ANALYST): Encouraged healthy lifestyle, good nutrition and exercise. Encouraged Calcium and Vitamin D and weight bearing exercise for bone health. Reviewed immunizations. Reviewed age appropirate screenings. Medicare Wellness Documentation is completed within the chart Chronic pain of right upper extremity 10/26/2019 05/22/2024 Assessment & Plan (10/26/2019 7:48 PM ECONOMICS ANALYST): This is a significant, separately identifiable problem that was evaluated and managed on the same day as the wellness exam Discussed treatment options. Offered xray, but probably won't reveal changes. Recommend Tylenol. Avoids NSAIDs. Start PT. Order provided. Other fatigue 10/26/2019 10/26/2020 Assessment & Plan (10/26/2019 7:48 PM ECONOMICS ANALYST): Obesity is unchanged. Discussed the patient's BMI. The BMI is above average. BMI management plan is completed. BMI Follow-up includes: nutrition counseling, exercise counseling and education provided. Need for 23-polyvalent pneum ococcal polysaccharide vaccine 10/26/2019 10/26/2020 Assessment & Plan (10/26/2019 7:49 PM ECONOMICS ANALYST): Updated in office today Medicare annual wellness visit, initial 10/22/2019 10/26/2020 Assessment & Plan (10/26/2019 7:48 PM ECONOMICS ANALYST): Encouraged healthy lifestyle, good nutrition and exercise. [...] 01/02/20 Assessment & Plan (11/01/2020 8:21 PM ECONOMICS ANALYST): Obesity is unchanged. Discussed the patient's BMI. The BMI is above average. BMI management plan is completed. BMI Follow-up includes: nutrition counseling, exercise counseling and education provided. Assessment & Plan (10/26/2019 7:46 PM ECONOMICS ANALYST): Obesity is unchanged. Discussed the patient's BMI. [...] 11/14/2022 Assessment & Plan (10/26/2019 7:48 PM ECONOMICS ANALYST): .Avoid nephrotoxic drugs including NSAIDs. Monitor labs. [...] 01/01/2021 Assessment & Plan (10/29/2020 10:56 AM ECONOMICS ANALYST): Obesity is unchanged. Discussed the patient's BMI. The BMI is above average. BMI management plan is completed. BMI Follow-up includes: nutrition counseling, exercise counseling and education provided. Gastroesophageal reflux dise ase without esophagitis 05/22/2018 01/01/2021 Assessment & Plan (11/01/2020 8:20 PM ECONOMICS ANALYST): Continue PPI Mixed hyperlipidemia 05/22/2018 021 Encounters Date Type Department Care Team Description 03/12/[address] [place] [phone] Jazz Corrales PA Post Hospitalization 03/11/2025 Telephone [place] [id number] [facility] [address] [place] [address] Jazz Corrales PA 03/08/[address] [place] [phone] Jazz Corrales PA Appointment Request 02/13/2025 Results Follow-Up [address] [phone] Jazz Corrales PA CBC with auto differential, Comprehensive metabolic panel, Hemoglobin A1c, Additional followed-up results: 4 01/28/2025 11:30 AM CDT Office Visit [address] [phone] Jazz Corrales PA Medicare annual wellness visit, subsequent (Primary Dx); Breast cancer screening by mammogram; Poor balance; Fatigue, unspecified type; Mixed hyperlipidemia; Other fatigue; Hematuria, unspecified type; Hyperglycemia; Gastroesophageal reflux disease without esophagitis; Lichen sclerosus; Vitamin D deficiency; BMI 36.0-36.9,adult; Morbid obesity (HCC) 01/28/2025 Telephone [facility] Internal Medicine at [address] [place] [phone] Jazz Corrales PA 01/24/[address] [phone] Jazz Corrales PA Medical Question/Miscellaneous from Last 3 Months Immunizations Immunization Administration Dates Next Due Hep [...] (Arexvy) 06/16/2024 Tdap 08/15/2014 ZOSTER Recombinant 04/09/2019,01/09/2018 Surgical History Surgery Date Site/Laterality Comments KELOID EXCISION x 3 TRIGGER FINGER RELEASE ROTATOR CUFF REPAIR Right SHOULDER SURGERY 10/01/2020 JOINT REPLACEMENT 09/26/2020 - 10/26/2020 JOINT REPLACEMENT 12/16/2021 Left Medical History Medical History Date Comments PONV (postoperative nausea and vomiting) GERD (gastroesophageal reflux disease) Hyperlipidemia Arthritis Chronic kidney disease Kidney stone Family History Medical History Relation Name Comments Anesthesia problems Brother Sammy Tang ponv Heart attack Brother Sammy Tang Hypertension Brother Sammy Tang Hypertension Father Cassius Tang Diabetes Maternal Grandmother Ilene Rios Arthritis Mother Hyla Clure Cancer Mother Hyla Clure Heart attack Mother Hyla Clure Hypertension Mother Hyla Clure Uterine cancer Mother Hyla Clure Anesthesia problems Other son: sean v Arthritis Sister Lana Valdes Heart attack Sister Lana Valdes Hypertension Sister Lana Valdes Relation Name Status Comments Brother Sammy Tang Father Cassius Tang Maternal Grandmother Ilene Kritz Mother Hyla Clure Other Sister Lana Valdes Social History Tobacco Use Types Packs/Day Years [...] on file Legal Sex Female 7:35 AM ECONOMICS ANALYST Gender Identity Female 08/31/2021 1:50 PM ECONOMICS ANALYST Sexual Orientation Not on file Obstetrics History Last Filed Vital Signs Vital Sign Reading [...] 01/28/2025 11:55 AM CDT Plan of Treatment Health Maintenance Due Date Last Done Comments Hepatitis C Screening 1955 Osteoporosis Screening-Bone Density Scan 01/29/2023 01/29/2021 Covid-19 Vaccine (2023-10 5 season) 2024 06/16/2024, 07/20/2022, 07/02/2021, Additional history exists DTaP/Tdap/Td Vaccine (2 - Td or Tdap) 08/15/2024 08/15/2014, 08/02/2003, 07/27/1995 Breast Cancer Screening-Mammogram 03/12/2025 03/12/2024, 05/19/2022, 05/19/2022, Additional history exists Depression Screening 01/28/2026 01/28/2025, 07/31/2024, 05/17/2024, Additional history exists Fall Risk Assessment 01/28/2026 01/28/2025, 05/17/2024, 11/17/2023, Additional history exists Well Visit 65+ 01/28/2026 01/28/2025, 10/28, 11/15/2022, Additional history exists Colon Cancer Screening-Colonoscopy 04/21/2026 04/21/2016 Colon Cancer Screening-CT Colonography Discontinued 04/21/2016 Colon Cancer Screening-DNA Stool Discontinued 04/21/20 Colon Cancer Screening-FIT Discontinued 04/21/2016 Colon Cancer Screening-Sigmoidoscopy Discontinued 04/21/2016 Hepatitis B Screening Completed 07/11/2018 , 02/08/2018, 01/09/2018 Zoster Vaccine Completed 04/09/2019, 12/25, 08/15/2014 Pneumococcal vaccine 65+ Completed 10/22/2019, 04/27 Influenza Vaccine Completed 06/16/2024, , 07/08/2021, Additional history exists Medical Devices Implanted Type Area Protein Specialist Device Identifier Shelf Expiration Date Model / Serial / Lot MindCare SolutionsniYourPOV.TV [id number] Tornier Aequalis Perform 15mm Press Fit Long Post Shoulder - [id number] - [id number] Implanted:Qty: 1 on 10/01/2020 by Phan Art MD at [facility] YouFetch [id number] 01/16/2025 [id number] / [id number] / [id number] MindCare Solutionsnier [employer] [id number] Tornier Aequalis Perform 25mm Reverse Shoulder Standard Baseplate - [id number] - [id number] Implanted:Qty: 1 on 10/01/2020 by Phan Art MD at [facility] [employer] [id number] 08/29/2025 [id number] / [id number] / [id number] Novogen [id number] Aequalis Perform Reversed 5mm 42mm Peripheral Glenoid Screw - [id number] Implanted:Qty: 1 on 10/01/2020 by Phan Art MD at [facility] [employer] [id number] / / MindCare Solutionsnier Inc [id number] Aequalis Perform Reversed 5mm 38mm Peripheral Glenoid Screw - [id number] Implanted:Qty: 1 on 10/01/2020 by Phan Art MD at [facility] [employer] [id number] / / Tornier Inc [id number] Tornier Aequalis Perform 36mm Lateralize Reverse Shoulder +3mm - [id number] - [id number] Implanted:Qty: 1 on 10/01/2020 by Phan Art MD at [facility] iSnap [id number] 05/05/2025 [id number] / [id number] / [id number] YouFetch [id number] Insert Perform [id number] - [id number] Implanted:Qty: 1 on 10/01/2020 by Phan Art MD at [facility] [employer]ownet [employer] Inc [id number] / / [id number] YouFetch [id number] Stem Perform Sz 2 Humeral - [id number] Implanted:Qty: 1 on 10/01/2020 by Phan Art MD at [facility] Pond5 Inc [id number] / / [id number] Box & Nephew/Richco/Or tho [id number] Sari Ii 32mm Resurfacing Knee Component Patellar Oxinium - [id number] Implanted:Qty: 1 on 11/26/2021 by Navjot Javed MD at [facility] Left: Knee Box & Nephew/Richco/O rtho [id number] 03/08/2031 [id number] / / [id number] Box & Nephew/Richco/Or tho [id number] Legion 11mm Cruciate Retaining High Flexion Knee 3-4 Insert - [id number] Implanted:Qty: 1 on 11/26/2021 by Navjot Javed MD at [facility] Left: Knee Box & Nephew/Richco/O rtho [id number] 06/07/2031 [id number] / / [id number] Box & Nephew/Richco/Or tho [id number] Legion Cemented Male Taper Knee Left 4 Baseplate Tibial Titanium - [id number] Implanted:Qty: 1 on 11/26/2021 by Navjot Javed MD at [facility] Left: Knee Box & Nephew/Richco/O rtho [id number] 01/05/2031 [id number] / / [id number] Box & Nephew/Richco/Or tho [id number] Sari Ii Legion Spc Cruciate Retain Knee Left 5 Component - [id number] Implanted:Qty: 1 on 11/26/2021 by Navjot Javed MD at [facility] Left: Knee Box & Nephew/Richco/O rtho 04/22/2031 [id number] / / [id number] [employer] [id number] Simplex P Radiopaque Full Dose Cement Bone Sterile - [id number] Implanted:Qty: 2 on 11/26/2021 by Navjot Javed MD at [facility] [employer] [id number] 02/24/2024 [id number] / / [id number] Explanted Type Area Protein Specialist Device Identifier Shelf Expiration Date Model / Serial / Lot YouFetch [id number] Guide Pin Perform 3.0 X 100mm - [id number] Explanted:Qty: 1 on 10/01/2020 at [facility] You[employer] [id number] / / Procedures Procedure Name Priority Date/Time [...] HM MAMMOGRAPHY Routine 03/12/2024 1:48 PM CDT HM DEXA SCAN Routine 01/29/2021 HM COLONOSCOPY Routine 04/21/2016 from Last 3 Months [...] CAMPBELL LAB BLOOD ORDERABLES Final Result [facility] [address] [place] [address] * Vitamin D 25 hydroxy (02/11/2025 1:25 PM CDT) Pathologist [facility] [place] Vitamin D 25-OH 32 30 - 100 ng/mL [facility] Comment: Vitamin D Status 25-OH Vitamin D: Deficiency: <20 ng/mL Insufficiency: 20 - 29 ng/mL Optimal: > or = 30 ng/mL For 25-OH Vitamin D testing on patients on D2-supplementation and patients for whom quantitation of D2 and D3 fractions is required, the QuestAssureD(TM) 25-OH VIT D, (D2,D3), LC/MS/MS is recommended: order code [id number] (patients >2yrs). See Note 1 Note 1 For additional information, please refer to http://education.Boxbe.Kontera/faq/GGY173 (This link is being provided for informational/ educational purposes only.) Blood 02/11/2025 1:25 PM CDT 02/11/2025 1:26 PM CDT Narrative [facility] - 02/12/2025 9:32 AM CDT FASTING:YES FASTING: YES Jazz CAMPBE[facility] LAB BLOOD ORDERABLES Final Result Performing Organization Address [facility] Co de Phone Number [facility] [address] [facility] [place] [address] * TSH (02/11/2025 1:25 PM CDT) Pathologist [facility] [place] TSH 1.82 0.40 - 4.50 mIU/L [facility] Blood 02/11/2025 1:25 PM CDT 02/11/2025 1:26 PM CDT Narrative [facility] - 02/12/2025 9:32 AM CDT FASTING:YES FASTING: YES Jazz [facility] LAB BLOOD ORDERABLES Final Result Performing Organization Address [facility] de Phone Number [facility] [address] [facility] [place] [address] * Hemoglobin A1c (02/11/2025 1:25 PM CDT) Pathologist [facility] [place] Hgb A1C 5.1 <5.7 % [facility] Comment: For the purpose of screening for the presence of diabetes: <5.7% Consistent with the absence of diabetes 5.7-6.4% Consistent with increased risk for diabetes (prediabetes) > or =6.5% Consistent with diabetes This assay result is consistent with a decreased risk of diabetes. Currently, no consensus exists regarding use of hemoglobin A1c for diagnosis of diabetes in children. According to [place] Diabetes Association (ADA) guidelines, hemoglobin A1c <7.0% represents optimal control in non- diabetic patients. Different metrics may apply to specific patient populations. Standards of Medical Care in Diabetes(ADA). Blood 02/11/2025 1:25 PM CDT 02/11/2025 1:26 PM CDT Narrative [facility] - 02/12/2025 9:32 AM CDT FASTING:YES FASTING: YES Jazz [facility] LAB BLOOD ORDERABLES Final Result Performing Organization Address [facility] Co de Phone Number [facility] [address] [place] [address] * Vitamin B12 (02/11/2025 1:25 PM CDT) Vitamin B12 446 200 - 1,100 pg/mL [facility] Blood 02/11/2025 1:25 PM CDT 02/11/2025 1:26 PM CDT Narrative [facility] - 02/12/2025 9:32 AM CDT FASTING:YES FASTING: YES Jazz [facility] LAB BLOOD ORDERABLES Final Result [facility] [address] [facility] [place] [address] * (ABNORMAL) Lipid panel (02/11/2025 1:25 PM [...] factors. LDL-C is now calculated using the Ludwin-Johny calculation, which is a validated novel method providing better accuracy than the Friedewald equation in the estimation of LDL-C. Ludwin MORRIS et al. CLARIBEL. 2013;310(19): 9748-5774 (http://education.Boxbe.Kontera/faq/FPZ775) Chol/HDL ratio 4.5 <5.0 (calc) [facility] [...] LAB BLOOD ORDERABLES Final Result [facility] [address] [address] * (ABNORMAL) Comprehensive metabolic panel (02/11/2025 1:25 PM CDT) [facility] Glucose 76 65 - 99 mg/dL [facility] [...] LAB BLOOD ORDERABLES Final Result [facility] [address] [address] * MAMMOGRAPHY (03/12/2024 1:48 PM CDT) Mammography Normal Historical Provider HEALTH MAINTENANCE Edited Result - Final * DEXA SCAN (01/29/2021) Historical Provider HEALTH MAINTENANCE Final Result * COLONOSCOPY (04/21/2016) Colonoscopy Abnormal Comment:hyperplastic polyp Historical Provider HEALTH MAINTENANCE Final Result from Last 3 Months or Most Recently Relevant to Health Maintenance Insurance MEDICARE [employer] MEDICARE FOR LIFE MEDICARE FOR LIFE Advance Directives For more information, please contact: [phone] Documents on File Type Date Recorded Patient Manufacturing 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
--- OUTSIDE RECORDS SUMMARY | 2025-03-13 12:11 | XMS_ITS | Encounter Summary ---
Author Organization [facility] Care Team Providers Care Outpatient Physical Therapist Name Role Phone Jazz Corrales Primary Care Provider [phone] Encounter Details Date Type Department Care Team (Latest Contact Info) Description 11/10/2018 Orders Only [facility] CLINCONV ProviderKorey MD [address] [place] [id number] Social History Tobacco Use Types Packs/Day Years Used Date Smoking Tobacco: Never Assessed Comments Unknown Sex and Gender Information Value Date Recorded Sex Assigned at Not on file Legal Sex Female 7:35 AM MANAGER PROCUREMENT Gender Identity Female 08/31/2021 1:50 PM MANAGER PROCUREMENT Sexual Orientation Not on file documented as of this encounter Plan of Treatment Not on file documented as of this encounter Procedures Procedure Name Priority Date/Time Associated Diagnosis Comments SCAN - LABS 11/14/2018 12:00 AM MANAGER PROCUREMENT documented in this encounter Results * SCAN - LABS (11/14/2018 12:00 AM MANAGER PROCUREMENT) Narrative 11/14/2018 12:00 AM MANAGER PROCUREMENT Ordered by an unspecified provider. Historical Provider Final Res ult documented in this encounter Visit Diagnoses Not on filedocumented in this encounter Care Teams Outpatient Physical Therapist Relationship Specialty Start Date End Date Jazz Corrales PA [address] [place] [address] PCP - General Internal Medicine 03/06/19 documented as of this encounter
--- OUTSIDE RECORDS SUMMARY | 2025-03-13 12:12 | XMS_ITS | Continuity of Care Document ---
Author Name [facility] Organization [facility] Care Team Providers Care Uranium Processing Supervisor Name Role Phone [facility] Unavailable Unavailable Problems Combined list of problems from Department of Defense and Veterans Affairs facilities. It does not include entries that were removed or entered in error. Problem Status Onset Date Problem Type Date of Resolution Comments Source Unilateral primary osteoarthritis, left knee Active Condition DoD Outpatient Physician Consultation Active Condition DoD joint pain, localized in the knee Active Condition DoD BURSITIS ANSERINE Active Condition DoD visit for: screening exam malignant neoplasm breast Inactive Condition DoD ESOPHAGITIS CHRONIC REFLUX Active Condition DoD visit for: administrative purpose Inactive Condition DoD Preventive Medicine Estab Patient Checkup Adult 40-64 Inactive Condition DoD Blood Pressure Isolated Elevated Active Condition DoD OSTEOPOROSIS Active Condition DoD Anticipatory Guidance: Osteoporosis Active Condition DoD visit for: screening exam for malignant neoplasm cervix Inactive Condition DoD RENAL DISORDERS Inactive Condition DoD tobacco use Active Condition DoD Serum Enzyme Levels - ALT (SGPT) Elevated Active Condition DoD Serum Enzyme Levels - AST (SGOT) Elevated Active Condition DoD OBESITY Active Condition DoD ARTHRITIS Active Condition DoD ESOPHAGEAL REFLUX Active Condition DoD NICOTINE DEPENDENCE - IN REMISSION Active Condition DoD Patient Education Inactive Condition Di scussed continued challenges, stressors. Congratulated on excellent job thus far! DoD NICOTINE DEPENDENCE Active Condition Discussed proper use on nicotine gum, reminded her that nicotine gum can also be addicted. She needs a refill of bupropion, will order through [facility]. She will continue with 21 mg patches for 2 more weeks as planned. DoD visit for: screening malignant neoplasm colon Active Condition pt states is w/ hx of polyps will consult for repeat to eval any changes; no fam hx colon cancer DoD tobacco use Active Condition pt given info for [facility]; pt states has quit in the past x 2 for one year at a timept understands the RF w/ hx of Osteopenia and possible HTN and other cardio RFpt states will call 'has been thinking about quitting again' DoD WARTS Active Condition Cryotherap y performed - pt to RTC if wart is persistent in 2-3 weeks DoD TENOSYNOVITIS - TRIGGER FINGER (ACQUIRED) Active Condition Will refer to ortho for further eval and treatment. DoD Cervical Pap Smear Unsatisfactory Active Condition DoD HYPERLIPIDEMIA Active Condition POC: stable; will eval w/ fasting labs DoD Serum Total Cholesterol Was Elevated Active Condition Encouraged pt t o f/u w PCM DoD OSTEOPENIA Active Condition DoD ATHEROSCLEROSIS Active Condition DoD ROUTINE GYNECOLOGICAL EXAM WITH CERVICAL PAP SMEAR Inactive Condition Pap smear destroyed. Will reschedule pt in 1 mth to repeat. DoD Mammogram Screening Inactive Condition D oD visit for: screening exam malignant neoplasm rectal Inactive Condition DoD SINUSITIS Active Condition will try levaquin 750mg qd for 5 days, increase fluids and follow up as needed. DoD UPPER RESPIRATORY INFECTION Inactive Condition DoD Vaccines Prophylactic Need Against Influenza Active Condition DoD Occupational Therapy Inactive Condition DoD Aftercare Following Surgery Inactive Condition DoD Aftercare Following Surgery Of Musculoskeletal System Active Condition Pt 2 wk S/P right MF trigger release. Will advance per [place] Protocol. Pain manageable/ROM WFL for light ADL/self care. No significant swelling. Incision clean with no signs of infection. Close supervision of scar management as pt reports hx of carmine DoD Medications Combined list of outpatient medications from Department of Defense and Veterans Affairs facilities.Medications provided include 1) outpatient medications from the last 15 months, and 2) patient-reported medications. Medication Details Route Status Patient Instructions Prescription Expires Prescription Number Last Dispense Date Ordering Provider Order Date Order Qty Source atorvastati n 40 mg oral tablet TAKE ONE TABLET BY MOUTH EVERY NIGHT, # 90 EA, 1 total refill(s ), Acute Complet ed 08/24/2023 3 2022 90.0 Ambulat ory Pharmac y atorvastati n 40 mg tablet See Instruct ions, # 90 EA, 2 total refill(s ), Hard Stop Ordered 10/22/2025 5 2024 90.0 Ambulat ory Pharmac y atorvastati n 40 mg tablet See Instruct ions, # 90 EA, 2 total refill(s ), Hard Stop Discont inued 05/17/2024 4 2023 90.0 Ambulat ory Pharmac y atorvastati n 40 mg tablet 40 mg, See Instruct ions, 0, # 90 EA, 2 total refill(s ), Acute Complet ed 02/25/2024 3 2023 90.0 Ambulat ory Pharmac y CLINDAMYCIN HCL (CLINDAMYCI N HCL), 150MG, CAPSULE, ORAL, AUROBINDO PHARM, 100 ea. BOTTLE Active [id number] 2023 4 Pharmac y Data Transac tion Service Facilit y clobetasol 0.05% cream [60g] See Instruct ions, # 60 g, 1 total refill(s ), Hard Stop Ordered 10/22/2025 5 2024 60.0 Ambulat ory Pharmac y clobetasol 0.05% cream [60g] See dose instruct ions in comments , # 60 g, 1 total refill(s ), Acute Complet ed 02/25/2024 3 2023 60.0 Ambulat ory Pharmac y nitrofurant oin macrocrysta l monohydrate 100mg cap 100 mg, Oral, BID, # 10 EA, 0 total refill(s ), Hard Stop Oral (given by mouth) Complet ed 11/16/2024 4 2024 10.0 Ambulat ory Pharmac y omeprazole 40 mg oral delayed release capsule TAKE ONE CAPSULE BY MOUTH EARLY EVERY MORNING BEFORE BREAKFAS T, # 90 EA, 1 total refill(s ), Acute Complet ed 08/24/2023 3 2022 90.0 Ambulat ory Pharmac y omep[address]ole [address] 40 mg capsule See Instruct ions, 0, # 90 EA, 2 total refill(s ), Acute Complet ed 02/25/2024 3 2023 90.0 Ambulat ory Pharmac y omeprazole DR 40 mg capsule See Instruct ions, # 90 EA, 2 total refill(s ), Hard Stop Ordered 10/22/2025 5 2024 90.0 Ambulat ory Pharmac y omeprazole DR 40 mg capsule See Instruct ions, # 90 EA, 2 total refill(s ), Hard Stop Discont inued 11/01/2024 4 2024 90.0 Ambulat ory Pharmac y Allergies, Adverse Reactions, Alerts Combined list of allergies from Department of Defense and Veterans Affairs facilities. It does not include entries that were removed or entered in error. Substance Category Reaction Severity Reaction type Status Date Reported Comments Source amoxicilli n-clavulan ate Propensity to adverse reactions to drug Vomiting Active 6 Unknown Organization [facility] (AMOX TR/POTASSI UM CLAVULANAT E) Drug allergy (disorder) Vomiting active [address] [place] [address] [employer] ([facility] BARIUM SULFATE (BARIUM SULFATE) Drug allergy (disorder) Unknown active [address] [place] [address] ([facility]) barium sulfate Propensity to adverse reactions to drug Unknown Active 7 Reaction( s): Rash, itching Unknown Organization OTHER Drug allergy (disorder) Unknown active [address] [place] [address] OTHER Drug allergy (disorder) active [address] [place] [address] Immunizations Combined list of available immunizations from the Department of Defense and Veterans Affairs facilities. 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 Comments Source influenza, high-dose, quadrivalent 2019 ALUL, () Not Given influenza , high-dose , quadrival ent DoD influenza, seasonal,high dose-pf 2018 135 sanofi pasteur complet ed influenza , seasonal, high dose-pf 07/14/19 Given Ambulat ory Pharmac y hepatitis B adult vaccine 2017 zzLef t Arm [id number] GlaxoSmithKli ne complet ed hepatitis B adult vaccine 07/11/18 Given Ambulat ory Pharmac y hepatitis B vaccine, adult dosage 1 2017 Unknown, Provider [id number] SmithKline (SKB) complet ed hepatitis B vaccine, adult dosage DoD influenza, injectable, quadrivalent- pf 2017 zzLef t Arm [id number] Seqirus complet ed influenza , injectabl e, quadrival ent-pf 07/07/18 Given Ambulat ory Pharmac y Influenza, injectable, quadrivalent, preservative free 1 2017 Unknown, Provider [id number] Seqirus (SEQ) complet ed Influenza , injectabl e, quadrival ent, preservat jihan free DoD pneumococcal 13-valent conjugate (PCV13) 2017 zzLef t Thigh [id number] [employer] complet ed pneumococ chepe 13-valent conjugate (PCV13) 05/22/18 Given Ambulat ory Pharmac y pneumococcal conjugate vaccine, 13 valent 1 2017 Unknown, Provider [id number] Yareli (CARY) complet ed pneumococ chepe conjugate vaccine, 13 valent DoD hepatitis A-hepatitis B vaccine 2017 zzLef t Arm [id number] GlaxoSmithKli ne complet ed hepatitis A-hepatit is B vaccine 02/08/18 Given Ambulat ory Pharmac y hepatitis A and hepatitis B vaccine 1 2017 Unknown, Provider [id number] SmithKline (SKB) complet ed hepatitis A and hepatitis B vaccine DoD zoster vaccine, inactivated 2017 zzLef t Arm [id number] GlaxoSmithKli ne complet ed zoster vaccine, inactivat ed 01/09/18 Given Ambulat ory Pharmac y hepatitis A-hepatitis B vaccine 2017 zzLef t Arm [id number] GlaxoSmithKli ne complet ed hepatitis A-hepatit is B vaccine 01/09/18 Given Ambulat ory Pharmac y hepatitis A and hepatitis B vaccine 1 2017 Unknown, Provider [id number] SmithKline (SKB) complet ed hepatitis A and hepatitis B vaccine DoD zoster vaccine recombinant 1 2017 Unknown, Provider [id number] SmithKline (SKB) complet ed zoster vaccine recombina nt DoD Influenza, inj, MDCK, quadrivalent- pf [facility] [id number] Seqirus complet ed Influenza , inj, MDCK, quadrival ent-pf 08/15/17 Given Ambulat ory Pharmac y Influenza, injectable, Madin [place] Canine Kidney, preservative free, quadrivalent 1 2016 Unknown, Provider [id number] 171 Seqirus (SEQ) complet ed Influenza , injectabl e, Madin [place] Canine Kidney, preservat jihan free, quadrival ent DoD influenza, seasonal, injectable-pf 2015 zzLef t Arm [id number] Seqirus complet ed influenza , seasonal, injectabl e-pf 07/14/16 Given Ambulat ory Pharmac y Influenza, seasonal, injectable, preservative free 1 2015 Unknown, Provider [id number] Seqirus (SEQ) complet ed Influenza , seasonal, injectabl e, preservat jihan free DoD influenza, injectable, quadrivalent- pf 2014 zzLef t Arm [id number] 150 GlaxoSmithKli ne complet ed influenza , injectabl e, quadrival ent-pf 08/04/15 Given Ambulat ory Pharmac y Influenza, injectable, quadrivalent, preservative free 1 2014 Unknown, Provider [id number] [facility] (SKB) complet ed Influenza , injectabl e, quadrival ent, preservat jihan free DoD tetanus, diphtheria, acellular pertu is 2013 zzLef t Arm [id number] GlaxoSmithKli ne complet ed tetanus, diphtheri a, acellular pertussis 08/15/14 Given Ambulat ory Pharmac y influenza, injectable, quadrivalent 2013 zzLef t Arm [id number] [employer] complet ed influenza , injectabl e, quadrival ent 08/15/14 Given Ambulat ory Pharmac y zoster vaccine live 2013 zzLef t Arm [id number] Merck & Company Inc complet ed zoster vaccine live 08/15/14 Given Ambulat ory Pharmac y tetanus toxoid, reduced diphtheria toxoid, and acellular pertu is vaccine, adsorbed 1 2013 Unknown, Provider [id number] [facility] (SKB) complet ed tetanus toxoid, reduced diphtheri a toxoid, and acellular pertussis vaccine, adsorbed DoD zoster vaccine, live 1 2013 Unknown, Provider [id number] Merck (MSD) complet ed zoster vaccine, live DoD influenza, injectable, quadrivalent, contains preservative 1 2013 Unknown, Provider [id number] (IDB) complet ed influenza , injectabl e, quadrival ent, contains preservat jihan DoD influenza, seasonal, injectable 2012 zzLef t Arm [id number] sanofi pasteur complet ed influenza , seasonal, injectabl e 07/26/13 Given Ambulat ory Pharmac y Influenza, seasonal, injectable 1 2012 Unknown, Provider [id number] Sanofi Pasteur ([facility]) complet ed Influenza , seasonal, injectabl e DoD influenza, seasonal, injectable 2011 zzLef t Arm [id number] 141 sanofi pasteur complet ed influenza , seasonal, injectabl e 09/01/12 Given Ambulat ory Pharmac y Influenza, seasonal, injectable 8 2011 Unknown, Provider [id number] 141 Sanofi Pasteur ([facility]) complet ed Influenza , seasonal, injectabl e DoD influenza, seasonal, injectable-pf [facility] [id number] 140 sanofi pasteur complet ed influenza , seasonal, injectabl e-pf 10/18/11 Given Ambulat ory Pharmac y Influenza, seasonal, injectable, preservative free 7 2011 Unknown, Provider [id number] 140 Sanofi Pasteur ([facility]) complet ed Influenza , seasonal, injectabl e, preservat jihan free DoD influenza virus vaccine,split 2009 [facility] [id number] 15 CSL Behring complet ed influenza virus vaccine,s plit 09/02/10 Given Ambulat ory Pharmac y influenza virus vaccine, split virus (incl. purified surface antigen)-reti red CODE 1 2009 Unknown, Provider [id number] 15 [employer] (CS) complet ed influenza virus vaccine, split virus (incl. purified surface antigen)- retired CODE [facility] influenza virus vaccine,split 2004 [facility] [id number] 15 sanofi pasteur complet ed influenza virus vaccine,s plit 08/26/05 Given Ambulat ory Pharmac y influenza virus vaccine, split virus (incl. purified surface antigen)-reti red CODE 1 2004 Unknown, Provider [id number] 15 Sanofi Pasteur ([facility]) complet ed influenza virus vaccine, split virus (incl. purified surface antigen)- retired CODE [facility] tetanus-dipht h toxoids (Td) adult/adol 2002 zzL t Arm [id number] sanofi pasteur complet ed tetanus-d iphth toxoids (Td) adult/ado l 08/02/03 Given Ambulat ory Pharmac y influenza virus vaccine, whole virus 2002 zzLef t Arm [id number] Novartis Voluntistica complet ed influenza virus vaccine, whole virus 08/02/03 Given Ambulat ory Pharmac y tetanus and diphtheria toxoids, adsorbed, preservative free, for adult use (2 Lf of tetanus toxoid and 2 Lf of diphtheria toxoid) 1 2002 Unknown, Provider [id number] Sanofi Pasteur ([facility]) complet ed tetanus and diphtheri a toxoids, adsorbed, preservat jihan free, for adult use (2 Lf of tetanus toxoid and 2 Lf of diphtheri a toxoid) DoD influenza virus vaccine, whole virus 1 2002 Unknown, Provider [id number] [employer] (PWJ) complet ed influenza virus vaccine, whole virus DoD influenza virus vaccine, whole virus 1998 [id number] [facility] complet ed influenza virus vaccine, whole virus 08/27/99 Given Ambulat ory Pharmac y influenza virus vaccine, whole virus 1 1998 Unknown, Provider [id number] 16 [facility] (CON) complet ed influenza virus vaccine, whole virus DoD influenza virus vaccine, whole virus [id number] [facility] complet ed influenza virus vaccine, whole virus 07/31/98 Given Ambulat ory Pharmac y influenza virus vaccine, whole virus 2 1997 Unknown, Provider [id number] 16 [facility] (CON) complet ed influenza virus vaccine, whole virus DoD influenza virus vaccine, whole virus 1996 16 complet ed influenza virus vaccine, whole virus 07/18/97 Given Ambulat ory Pharmac y influenza virus vaccine, whole virus 1 1996 Unknown, Provider 16 () complet ed influenza virus vaccine, whole virus DoD hepatitis A adult vaccine 1996 52 complet ed hepatitis A adult vaccine 03/07/97 Given Ambulat ory Pharmac y hepatitis A vaccine, adult dosage 2 1996 Unknown, Provider 52 () complet ed hepatitis A vaccine, adult dosage DoD hepatitis A adult vaccine 1995 52 complet ed hepatitis A adult vaccine 07/13/96 Given Ambulat ory Pharmac y hepatitis A vaccine, adult dosage 1 1995 Unknown, Provider 52 () complet ed hepatitis A vaccine, adult dosage DoD tetanus-dipht h toxoids (Td) adult/adol 1994 09 complet ed tetanus-d iphth toxoids (Td) adult/ado l 07/27/95 Given Ambulat ory Pharmac y tetanus and diphtheria toxoids, adsorbed, preservative free, for adult use (2 Lf of tetanus toxoid and 2 Lf of diphtheria toxoid) 1 1994 Unknown, Provider 09 () complet ed tetanus and diphtheri a toxoids, adsorbed, preservat jihan free, for adult use (2 Lf of tetanus toxoid and 2 Lf of diphtheri a toxoid) DoD vaccinia (smallpox) vaccine 1980 75 complet ed vaccinia (smallpox ) vaccine 04/26/81 Given Ambulat ory Pharmac y vaccinia (smallpox) vaccine 1 1980 Unknown, Provider 75 () complet ed vaccinia (smallpox ) vaccine DoD yellow fever vaccine 1978 37 complet ed yellow fever vaccine 12/25/78 Given Ambulat ory Pharmac y yellow fever vaccine 1 1978 Unknown, Provider 37 () complet ed yellow fever vaccine DoD typhoid, parenteral, AKD 1974 53 complet ed typhoid, parentera l, AKD 06/26/75 Given Ambulat ory Pharmac y typhoid vaccine, parenteral, acetone-kille d, dried ([place]S. ) 1 1974 Unknown, Provider 53 () complet ed typhoid vaccine, parentera l, acetone-k illed, dried ([place]. ) DoD poliovirus vaccine, live, oral 1974 02 complet ed polioviru s vaccine, live, oral 04/26/75 Given Ambulat ory Pharmac y trivalent poliovirus vaccine, live, oral 1 1974 Unknown, Provider 02 () complet ed trivalent polioviru s vaccine, live, oral DoD measles/mumps /rubella virus vaccine 1974 03 complet ed measles/m umps/rube lla virus vaccine 01/24/75 Given Ambulat ory Pharmac y measles, mumps and rubella virus vaccine 1 1974 Unknown, Provider 03 () complet ed measles, mumps and rubella virus vaccine DoD Encounters Combined list of: 1) Encounters from Department of Veterans Affairs facilities going backup to the last 18 months, not all VA inpatient encounters are included; 2) Encounters from the Department of Defense facilities going backup to 280 months. Location Location Details Encounter Type Encounter Number Reason For Visit Attending Provider ADM Date DC Date Status Disposition Source [address] [place] [address] Ja[employer] ([facility]Ot Neuromusc uloskelet al Clinic) OUTPATIENT [id number] BRIANNA SIMENTAL 09/09 Released with Work/Duty Limitations [address] [place] [address] [employer] ([facility]O t Neuromu sculosk eletal Clinic) [employer] ([facility])(Occ upational Therapy) OUTPATIENT [id number] FU trigger release DANELLE PACHECO R 09/24 Released w/o Limitations [employer] ([facility]O ccupati onal Therapy ) [employer] ([facility]Occ upational Therapy) OUTPATIENT [id number] f/u trigger briung vibrato r back DANELLE PACHECO R 10/15 Released w/o Limitations [employer] ([facility]O ccupati onal Therapy ) [facility] [employer] ([facility]Occ upational Therapy) OUTPATIENT [id number] u/s DANELLE PACHECO R 10/19 Released w/o Limitations [employer] ([facility]O ccupati onal Therapy ) [facility] [employer] ([facility]Occ upational Therapy) OUTPATIENT [id number] u/s DANELLE PACHECO R 10/21 Released w/o Limitations [employer] ([facility])(O ccupati onal Therapy ) [facility] [employer] ([facility]Occ upational Therapy) OUTPATIENT [id number] u/s DANELLE PACHECO R 10/23 Released w/o Limitations [employer] ([facility])(O ccupati onal Therapy ) [facility] [employer] ([facility])(Occ upational Therapy) OUTPATIENT [id number] u/s DANELLE PACHECO R 10/27 Released w/o Limitations [employer] ([facility])(O ccupati onal Therapy ) [facility] [employer] ([facility]Occ upational Therapy) OUTPATIENT [id number] u/s DANELLE PACHECO R 10/28 Released w/o Limitations [employer] ([facility])(O ccupati onal Therapy ) [facility] [employer] ([facility])(Occ upational Therapy) OUTPATIENT [id number] u/s DANELLE PACHECO R 10/30 Released w/o Limitations [employer] ([facility])(O ccupati onal Therapy ) [address] [place] [address] [employer] ([facility] OUTPATIENT [id number] flu shot CHASE MASTERS Rolando 08/26 Released w/o Limitations [address] [place] [address] [employer] ([facility])(F amily Practic e Non-GME FHI1) [address] [place] [address] [employer] ([facility]) OUTPATIENT [id number] headcol d x1 month, now w/chest congest ion KRISTIE MANCILLA L 12/10 Released w/o Limitations [address] [place] [address] [employer] ([facility])(F amily Practic e Non-GME FHI2) [address] [place] [address] [employer] ([facility])([facility] melani Practice Non-GME FHI2) OUTPATIENT [id number] chest congest /cough KRISTIE MANCILLA L 12/20 Released w/o Limitations [address] [place] [address] [employer] ([facility])(F amily Practic e Non-GME FHI2) [address] [place] [address] [employer] ([facility])([facility] melani Practice Non-GME FHI2) OUTPATIENT [id number] Sinus Infecti on KRISTIE MANCILLA L 01/06 Released w/o Limitations [address] [place] [address] [employer] ([facility])(F amily Practic e Non-GME FHI2) [address] [place] [address] [employer] ([facility])(Food Consultant ecology) OUTPATIENT [id number] pap overdue LUIS ANTONIO CALERO Bhavin 12/15 Released w/o Limitations [address] [place] [address] [employer] ([facility])(G ynecolo gy) [address] [place] [address] [employer] [facility]Food Consultant ecology) TELE CONSULT [id number] lab results LUIS ANTONIO CALERO Bhavin 12/[address] [place] [address] [employer] ([facility])(G ynecolo gy) [address] [place] [address] [employer] ([facility])([facility] melani Practice Non-GME FHI2) OUTPATIENT [id number] F/U bloodwo rk/Chol TARIK BEASLEY 12/30 Released w/o Limitations [address] [place] [address] [employer] ([facility])(F amily Practic e Non-GME FHI2) [address] [place] [address] [employer] ([facility])(Food Consultant ecology) OUTPATIENT [id number] annual pap NETTAYUNIOR M 01/24 Released w/o Limitations [address] [place] [address])(G ynecolo gy) [address] [place] [address])(Oumar diologyPr ocedure Schedules ) OUTPATIENT [id number] HYPERLI PIDEMIA MARCODONNA E 02/07 Released w/o Limitations [address] [place] [address])(C ardiania gyProce dure Schedul es) [address] [place] [address])([facility] melani Practice Non-GME FHI2) OUTPATIENT [id number] trigger finger GRETCHEN ZAVALA 02/14 Released w/o Limitations [address] [place] [address])(F amily Practic e Non-GME FHI2) [address] [place] [address])(Fam melani Practice Non-GME FHI2) OUTPATIENT [id number] C# NEED MEDS REFILLE D PER PT ANNITA HILL M 01/16 Released w/o Limitations [address] [place] [address])(F amily Practic e Non-GME FHI2) [address] [place], [place] [address])([facility] melani Practice Non-GME FHI2) TELE CONSULT [id number] Bone density results -- PCM: ORQUIDEA Belcher 01/[address] [place] [address] Jaime [facility])(F amily Practic e Non-GME FHI2) [address] [place] [address] [facility])(Fam melani Practice Non-GME FHI1) OUTPATIENT [id number] tobacco cessati on ANNITA HILL M 04/16 Released w/o Limitations [address] [place] [address] [facility])(F amily Practic e Non-GME FHI1) [address] [place] [address] [facility])(Fam melani Practice Non-GME FHI1) TELE CONSULT [id number] Tobacco cessati on ANNITA HILL M 04/[address] [place] [address] Ja[facility])(F amily Practic e Non-GME FHI1) [address] [place] [address])(Fam melani Practice Non-GME FHI1) OUTPATIENT [id number] tobacco cessati on MARQUIS ANN 05/15 Released w/o Limitations [address] [place] [address] Group Jaime [facility] ([facility]F amily Practic e Non-GME FHI1) [address] [place] [address] [employer] ([facility])(Fam melani Practice Non-GME FHI1) OUTPATIENT [id number] tobacco cessati on ANNITA HILL 06/11 Released w/o Limitations [address] [place] [address] Jaime NBAB ([facility])(F amily Practic e Non-GME FHI1) [address] [place] [address] Jaime ARANGOB ([facility])(Fam melani Med Tm B Non-AD BCC) OUTPATIENT [id number] heartbu rn [phone] AGUILAR SIDDIUQI Oscar 10/15 Released w/o Limitations [address] [place] [address] Jaime ARANGOB ([facility])(F amily Med Tm B Non-AD BCC) [address] [place] [address] Jaime ARANGOB ([facility])(Fam melani Med Tm B Non-AD BCC) TELE CONSULT [id number] medicat ion problem COREY PERAZA 10/[address] [place] [address] Group Jaime [facility] ([facility])(F amily Med Tm B Non-AD BCC) [address] [place] [address] Jaime ARANGOB ([facility])(Fam melani Med Tm B Non-AD BCC) TELE CONSULT [id number] Lab Result Review results with patient AGUILAR SIDDIQUI Oscar 10/[address] [place] [address] Jaime [facility] ([facility])(F amily Med Tm B Non-AD BCC) [address] [place] [address] [employer] ([facility])(Fam melani Med Tm B Non-AD BCC) TELE CONSULT [id number] Lab Result Review results with patient STU COREY Izquierdo 02/[address] [place] [address] Group [employer] ([facility])(F amily Med Tm B Non-AD BCC) [address] [place] [address] [employer] ([facility])(Fam melani Med Tm B Non-AD BCC) TELE CONSULT [id number] Lab results COREY PERAZA 02/[address] [place] [address] Group [employer] ([facility])(F amily Med Tm B Non-AD BCC) [address] [place] [address] [employer] [facility]Food Consultant ecology) OUTPATIENT [id number] well [id number] [id number] TRISTIN LARSEN 09/02 Released w/o Limitations [address] [place] [address] [employer] ([facility])(Delia fuentes gy) [address] [place] [address] Jaime [facility])(Fam melani Med Tm B Non-AD BCC) OUTPATIENT [id number] F/U med [phone] AGUILAR SIDDIQUI 10/26 Released w/o Limitations [address] [place] [address])(F amily Med Tm B Non-AD BCC) [address] [place] [address])(Fam melani Med Tm B Non-AD BCC) TELE CONSULT [id number] PCM Goyo inform of labs results . Review ways to lower HDL sheet with patient . NAZ BROWN 12/[address] [place] [address] [facility])(F amily Med Tm B Non-AD BCC) [address] [place] [address])([facility] Cl[facility] Tm A Ad) TELE CONSULT [id number] PCM Goyo. Inform patient of lab results . Increas e aerobic exercis e. Consult NAZ BROWN 03/[address] [place] [address])(W arrior Op Med Cln Tm A Ad) [address] [place] [address])(War rior Op Med Cln Tm A Ad) TELE CONSULT [id number] Lab Result Review results with patient KRISTIE ANTONIO 10/[address] [place] [address])(W arrior Op Med Cln Tm A Ad) [address] [place] [address])(War rior Op Med Cln Tm A Ad) OUTPATIENT [id number] AGUILAR Pena 10/18 Released w/o Limitations [address] [place] [address])(W arrior Op Med Cln Tm A Ad) [address] [place] [address])(Sco tt [facility] Team 3) OUTPATIENT [id number] back pain and med review PARI BAEZ 10/17 Released w/o Limitations [address] [place] [address])(S cott [facility] Team 3) [address] [place] [address])(War rior Op Med Cln Tm A Ad) TELE CONSULT [id number] Notes Entered by: KERA HENRY 09 Nov 2012 1657 ------- ------- ------- ------- -- Lab and BMD results KRISTIE ANTONIO 11/[address] [place] [address] Group [facility])(W arrior Op Med Cln Tm A Ad) [address] [place] [address])(War rior Op Med Cln Tm A Ad) OUTPATIENT [id number] pain in left knee x six weeks; pain on inside of leg [phone] BEATRIZ JONES 04/19 Released w/o Limitations [address] [place] [address])(W arrior Op Med Cln Tm A Ad) [address] [place] [address])(War rior Op Med Cln Tm A Ad) TELE CONSULT [id number] Notes Entered by: SAM LUCIANO 27 Apr 2013 1447 ------- ------- ------- ------- -- Needs order for physica l therapy RADHA Reyes 04/27 Referred for Appointment [address] [place] [address])(W arrior Op Med Cln Tm A Ad) [address] [place] [address])([facility] Med Cln Tm A Ad) OUTPATIENT [id number] left leg pain TE HAMILTON 07/25 Released w/o Limitations [address] [place] [address])(W arrior Op Med Cln Tm A Ad) [address] [place] [address])(War rior Op Med Cln Tm A Ad) TELE CONSULT [id number] MARY GOMEZ 08/[address] [place] [address])(W arrior Op Med Cln Tm A Ad) [address] [place] [address])(War rior Op Med Cln Tm A Ad) OUTPATIENT [id number] f/u knee pain; recent MRI Jun TE HAMILTON 08/30 Released w/o Limitations [address] [place] [address])(W arrior Op Med Cln Tm A Ad) [address] [place] [address])(War ri[facility] Op Med Cln Tm A Ad) OUTPATIENT [id number] left knee problem [phone] CHETANNATHAN FAY TE Timbo 09/05 Released w/o Limitations [address] [place] [address])(W arrior Op Med Cln Tm A Ad) [address] [place] [address])(War rior Op Med Cln Tm A Ad) TELE CONSULT [id number] Notes Entered by: MEGHANN REED 28 Sep 2013 1533 ------- ------- ------- ------- -- Network results Physica l Therapy 3 BROCKEverardoNATHAN FAY TE Timbo 09/[address] [place] [address])(W arrior Op Med Cln Tm A Ad) [address] [place] [address])(War rior Op Med Cln Tm A Ad) TELE CONSULT [id number] Notes Entered by: RACHID OAKES 26 Nov 2013 1341 ------- ------- ------- ------- -- Corie krishnamurthy/Refe rral from Other Provide r NERI DUMONT 11/[address] [place] [address])(W ar[facility] Op Med Cln Tm A Ad) [address] [place] [address])(War rior Op Med Cln Tm A Ad) OUTPATIENT [id number] f/u with PCM - new referra ls - SHANNONRONIEverardoNATHAN FAY TE Izquierdo 12/24 Released w/o Limitations [address] [place] [address])(W arrior Op Med Cln Tm A Ad) [address] [place] [address])(Food Consult[employer] ecology) OUTPATIENT [id number] annual wwe - [phone] t MIR LEMA 12/25 Released w/o Limitations [address] [place] [address])(G ynecolo gy) [address] [place] [address])(Fam melani Med Tm B Non-AD BCC) TELE CONSULT [id number] Notes Entered by: ADELINA DIEZ 17 Jul 2014 1026 ------- ------- ------- ------- -- Network Results -ORTHOP EDICS 01/16/14 and 04/17/14 TE HAMILTON 07/[address] [place] [address] Group [facility])(F amily Med Tm B Non-AD BCC) [address] [place] [address] Group Ja[facility])(War rior Op Med Cln Tm A Ad) OUTPATIENT [id number] follow up for medicat ions [phone] MELVIN FAY TE A 08/14 Released w/o Limitations [address] [place] [address] Group Ja[facility])(W arrior Op Med Cln Tm A Ad) [address] [place] [address] Group Ja[facility])(War rior Op Med Cln Tm A Ad) TELE CONSULT [id number] Notes Entered by: JOSE HANSON 15 Jan 2015 1116 ------- ------- ------- ------- -- Network Results - ORTHOPE DICS - 12/30/14 and 01/06/15 ARA FRAZIER 01/[address] [place] [address] Group [facility])(W arrior Op Med Cln Tm A Ad) [address] [place] [address] Ja[facility])(War rior Op Med Cln Tm A Ad) TELE CONSULT [id number] Notes Entered by: AMOS CHAVEZ 04 Mar 2015 1037 ------- ------- ------- ------- -- Ortho referra pop [place] - [phone](C all before 1400) TRINITY RIVERA 03/04 Referred for Appointment [facility] Medical Group Jaime [facility])(W arrior Op Med Cln Tm A Ad) [address] [place] [address] Ja[facility])(War rior Op Med Cln Tm A Ad) OUTPATIENT [id number] finger pain ARA FRAZIER 03/17 Released w/o Limitations [address] [place] [address] Ja[facility])(W arrior Op Med Cln Tm A Ad) [address] [place] [address] Ja[facility])(War rior Op Med Cln Tm A Ad) OUTPATIENT [id number] ringing in ears x a [facility] ARA FRAZIER 03/25 Released w/o Limitations [address] [place] [address] Group Ja[facility])(W arrior Op Med Cln Tm A Ad) [address] [place] [address] Group Jaime [facility])(Fam melani Med Tm B Non-AD BCC) TELE CONSULT [id number] Notes Entered by: ADELINA DIEZ 15 May 2015 1550 ------- ------- ------- ------- -- Network Results -AUDIOL OGY 05/14/15 ARA FRAZIER 05/[address] [place] [address] Group Ja[facility])(F amily Med Tm B Non-AD BCC) [address] [place] [address] Ja[facility])(War rior Op Med Cln Tm A Ad) OUTPATIENT [id number] F/U medicat ions / general check up [phone] LOLIARTUROJUANCHO PRETTY 08/01 Released w/o Limitations [address] [place] [address] Group [facility])(W arrior Op Med Cln Tm A Ad) [address] [place] [address] Ja[facility])(War rior Op Med Cln Tm A Ad) OUTPATIENT [id number] R shoulde r pain x 6 wks [id number] ARA FRAZIER 11/06 Released w/o Limitations [address] [place] [address] Group [facility])(W arrior Op Med Cln Tm A Ad) [address] [place] [address] [facility])(Fam mleani Med Tm B Non-AD BCC) TELE CONSULT [id number] Notes Entered by: RAMOS BAY 11 Nov 2015 1259 ------- ------- ------- ------- -- X-ray results /Schedu le appoint ARA Clark 11/[address] [place] [address] Group [facility])(F amily Med Tm B Non-AD BCC) [address] [place] [address] Ja[facility])(War rior Op Med Cln Tm A Ad) OUTPATIENT [id number] left knee euflexx a injecti on 09/28 ARA FRAZIER 11/18 Released w/o Limitations [address] [place] [address] Group Jaime [facility]W arrior Op Med Cln Tm A Ad) [address] [place] [address] Ja[facility])(War rior Op Med Cln Tm A Ad) OUTPATIENT [id number] euflexx a 2/3 left knee consent on file ARA FRAZIER 11/24 Released w/o Limitations [address] [place] [address] Group [facility])(W arrior Op Med Cln Tm A Ad) [address] [place] [address] Ja[facility])(War rior Op Med Cln Tm A Ad) OUTPATIENT [id number] euflexx a / left knee consent on file ARA FRAZIER 12/01 Released w/o Limitations [address] [place] [address] Jaime ARANGO ([facility])(W arrior Op Med Cln Tm A Ad) [address] [place] [address] [facility])(War rior Op Med Cln Tm A Ad) TELE CONSULT [id number] Notes Entered by: MEGHANN REED 24 Dec 2015 1045 ------- ------- ------- ------- -- Network results Physica l Therapy 6 ARA FRAZIER 12/[address] [place] [address] Ja[facility])(W arrior Op Med Cln Tm A Ad) [address] [place] [address] Ja[facility])(War rior Op Med Cln Tm A Ad) OUTPATIENT [id number] F/U R Shoulde r pain and physica l therapy - [phone] [facility] ARA FRAZIER 02/05 Released w/o Limitations [address] [place] [address] Group [facility]ime [facility])(W arrior Op Med Cln Tm A Ad) [address] [place] [address] [facility])([facility] melani Med Tm B Non-AD BCC) TELE CONSULT [id number] Notes Entered by: FELICIANO FORREST 11 Feb 2016 1026 ------- ------- ------- ------- -- MRI of right shoulde r per pcm TRINITY RIVERA 02/10 Referred for Appointment [address] [place] [address])(F amily Med Tm B Non-AD BCC) [address] [place] [address])([facility]) TELE CONSULT [id number] Notes Entered by: DAVID RUIZ 24 Feb 2016 1426 ------- ------- ------- ------- -- Network results Physica l Therapy 016 ARA CH 02/[address] [place] [address])(F amily Med Tm B Non-AD BCC) [address] [place] [address])([place] - [place]) OUTPATIENT [id number] Pain in right shoulde r JONATHAN HURLEY A 02/24 Released w/o Limitations [address] [place] [address])(V A - Orthope dics) [address] [place] [address])([facility] B Non-AD BCC) TELE CONSULT [id number] Notes Entered by: FELICIANO FORREST 25 Feb 2016 1510 ------- ------- ------- ------- -- MRI upper extre w/o contras t Faxed to [phone] TRINITY RIVERA 02/24 Referred for Appointment [address] [place] [address])(F amily Med Tm B Non-AD BCC) [address] [place] [address])(War rior Op Med Cln Tm A Ad) TELE CONSULT [id number] Notes Entered by: ROBBIN GUERRA 05 Mar 2016 1103 ------- ------- ------- ------- -- Network Results -RADIOL OGY 02/26/16 MRI RT SHOULDE R SDG TRINITY RIVERA 03/05 Referred for Appointment [address] [place] [address])(W arrior Op Med Cln Tm A Ad) [address] [place] [address])([place] - Orthoped[place] cs) OUTPATIENT [id number] right shoulde r JONATHAN HURLEY A 03/10 Released w/o Limitations Medical [facility] Jaime ARANGO ([facility])(V A - Orthope dics) [address] [place] [address] [facility])(Food Consultant ecology) OUTPATIENT [id number] Annual WWE [id number] HAI SELLERS 05/27 Released w/o Limitations [facility] Jaime ARANGO ([facility])(G ynecolo gy) [address] [place] [address] Jaime [facility])(Food Consultant ecology) TELE CONSULT [id number] Notes Entered by: BHAVANA SELLERS 08 Jun 2016 1723 ------- ------- ------- ------- -- results KAPIL BOBBY 06/08[facility])(G ynecolo gy) Medical [facility])(War rior Op Med Cln Tm A Ad) OUTPATIENT [id number] Ongoing pain in the left kneeXmo [facility]61 [phone] ARA FRAZIER 06/10 Released w/o Limitations Medical Group [facility])(W arrior Op Med Cln Tm A Ad) [facility])(War rior Op Med Cln Tm A Ad) OUTPATIENT [id number] euflexx a left knee 1 of 3 ARA FRAZIER 06/15 Released w/o Limitations Medical Group [facility])(W arrior Op Med Cln Tm A Ad) [facility] Medical [facility])([place] - [facility] [facility]) OUTPATIENT [id number] right shoulde r MEIJONATHAN A 06/16 Released w/o Limitations Medical Group [facility])(V A - Orthope dics) [address] [place] [address] Jaime [facility])(War rior Op Med Cln Tm A Ad) OUTPATIENT [id number] euflexx a left knee 2 of 3 ARA FRAZIER A 06/21 Released w/o Limitations [facility] Jaime [facility]W arrior Op Med Cln Tm A Ad) [facility] [employer] Jaime [facility]OPEZ ([facility])(War rior Op Med Cln Tm A Ad) OUTPATIENT [id number] euflexx a left knee 3 of 3 ARA FRAZIER 06/28 Released w/o Limitations [facility] Jaime [facility]OPE[facility] ([facility])(W arrior Op Med Cln Tm A Ad) [employer] Jaime [facility] ([facility])(War rior Op Med Cln Tm A Ad) OUTPATIENT [id number] Discuss results ARA FRAZIER 07/13 Released w/o Limitations [facility] Jaime [facility] ([facility])(W arrior Op Med Cln Tm A Ad) [employer] Jaime [facility]OPE[facility] ([facility])(War rior Op Med Cln Tm A Ad) OUTPATIENT [id number] [facility] [id number] ARA FRAZIER 07/27 Released w/o Limitations [address] [place] [address] Group Jaime [facility])(W arrior Op Med Cln Tm A Ad) [address] [place] [address] Group [facility])(War rior Op Med Cln Tm A Ad) TELE CONSULT [id number] Notes Entered by: RAMOS BAY 05 Aug 2016 0643 ------- ------- ------- ------- -- Lab results JEREMYKANNANBRETT Marshall 08/05 Referred for Appointment [address] [place] [address] Jaime [facility])(W arrior Op Med Cln Tm A Ad) [address] [place] [address] [facility])(Fam melani Med Tm B Non-AD BCC) TELE CONSULT [id number] Notes Entered by: MAXINE FLOR 14 Sep 2016 1213 ------- ------- ------- ------- -- Network Results SURGERY 6 THOMAS PRADO 09/[address] [place] [address] Jaime [facility])(F amily Med Tm B Non-AD BCC) [address] [place] [address] [facility]ime [facility])([place] - Orthoped[place] [facility]) OUTPATIENT [id number] right JONATHAN Eller 12/24 Released w/o Limitations [address] [place] [address])(V A - Orthope dics) [address] [place] [address])(Phy sical Therapy) TELE CONSULT [id number] Notes Entered by: ROBBIN GUERRA 05 Jan 2017 1001 ------- ------- ------- ------- -- Network Results -PAIN MANAGEM ENT 12/27/16 [facility] JONATHAN HURLEY 01/[address] [place] [address])(P hysical Therapy ) [address] [place] [address])(War rior Op Med Cln Tm A Ad) TELE CONSULT [id number] Notes Entered by: ROBBIN GUERRA 24 Jan 2017 0849 ------- ------- ------- ------- -- Network Results -PAIN MANAGEM ENT 01/13/17 [facility] ARA FRAZIER 01/[address] [place] [address])(W arrior Op Med Cln Tm A Ad) [address] [place] [address])(War rior Op Med Cln Tm A Ad) TELE CONSULT [id number] Notes Entered by: KARYN STANFORD 01 Feb 2017 1058 ------- ------- ------- ------- -- Network results Anesthe jhonny/Akua melendez MGT. 7 ARA FRAZIER 02/[address] [place] [address])(W arrior Op Med Cln Tm A Ad) [address] [place] [address])(War rior Op Med Cln Tm A Ad) TELE CONSULT [id number] Notes Entered by: ROBBIN GUERRA 04 Mar 2017 1444 ------- ------- ------- ------- -- Network Results -PAIN MANAGEM ENT 03/03/17 [facility] ARA FRAZIER 03/[address] [place] [address])(W arrior Op Med Cln Tm A Ad) [facility] Medical Group [facility])(War rior Op Med Cln Tm A Ad) TELE CONSULT [id number] Notes Entered by: Katharine FITZGERALD 07 Mar 2017 0802 ------- ------- ------- ------- -- Network results Anesthe jhonny/Akua n MGT 02/16/17 [facility] ARA FRAZIER 03/[address] [place] [address] Group [facility])(W arrior Op Med Cln Tm A Ad) [address] [place] [address] Group [facility])(War rior Op Med Cln Tm A Ad) TELE CONSULT [id number] Notes Entered by: ROBBIN GUERRA 11 Mar 2017 1215 ------- ------- ------- ------- -- Network Results -PAIN MANAGEM ENT 03/09/17 SDG ARA FRAZIER 03/11 [facility] Medical Group [facility])(W arrior Op Med Cln Tm A Ad) [facility] Medical Group [facility])([place] - [place]) OUTPATIENT [id number] right shoulde r JONATHAN HURLEY 03/16 Released w/o Limitations [facility] Medical Group [facility])(V A - Orthope dics) [facility] Medical [facility])(War rior Op Med Cln Tm A Ad) OUTPATIENT [id number] L knee pain, [phone] 1 ARA FRAZIER 03/30 Released w/o Limitations [facility] Medical Group [facility])(W arrior Op Med Cln Tm A Ad) [facility] Medical Group [facility])(War rior Op Med Cln Tm A Ad) OUTPATIENT [id number] Euflexx a Left knee ARA FRAZIER 03/31 Released w/o Limitations [facility] Medical [facility])(W arrior Op Med Cln Tm A Ad) Medical [facility])(War rior Op Med Cln Tm A Ad) OUTPATIENT [id number] Euflexx a Left knee ARA FRAZIER 04/07 Released w/o Limitations [address] [place] [address])(W arrior Op Med Cln Tm A Ad) [address] [place] [address])(War rior Op Med Cln Tm A Ad) OUTPATIENT [id number] Euflexx a Left knee ARA FRAZIER 04/14 Released w/o Limitations [address] [place] [address])(W arrior Op Med Cln Tm A Ad) [address] [place] [address])(Fam melani Med Tm B Non-AD BCC) TELE CONSULT [id number] Notes Entered by: DAVID RUIZ 27 Apr 2017 1517 ------- ------- ------- ------- -- Network results Orthope dics 017 JUANCHO FENTON 04/[address] [place] [address])(F amily Med Tm B Non-AD BCC) [address] [place] [address])(War rior Op Med Cln Tm A Ad) OUTPATIENT [id number] medicat ion review/ renewal ARA FRAZIER 08/12 Released w/o Limitations [address] [place] [address])(W arrior Op Med Cln Tm A Ad) [address] [place] [address])(War rior Op Med Cln Tm A Ad) TELE CONSULT [id number] Notes Entered by: RAMOS BAY 15 Aug 2017 1000 ------- ------- ------- ------- -- Lab results COCO ALBA 08/15 Referred for Appointment [address] [place] [address])(W arrior Op Med Cln Tm A Ad) [address] [place] [address])(War rior Op Med Cln Tm A Ad) OUTPATIENT [id number] Left knee Euflexx a FREDDIE ARA Timbo 09/30 Released w/o Limitations [address] [place] [address])(W arrior Op Med Cln Tm A Ad) [facility] Medical Group Jaime [facility])(War rior Op Med Cln Tm A Ad) TELE CONSULT [id number] Notes Entered by: KIA STREET 06 Oct 2017 1533 ------- ------- ------- ------- -- Network Results Procedu re ARA FRAZIER 10/[address] [place] [address] Group [facility])(W arrior Op Med Cln Tm A Ad) [address] [place] [address] Group [facility])(War rior Op Med Cln Tm A Ad) OUTPATIENT [id number] 2/3 Left knee Euflexx ARA Leon 10/07 Released w/o Limitations [address] [place] [address] Group [facility])(W arrior Op Med Cln Tm A Ad) [address] [place] [address] Group Jaime ARANGO ([facility])(War rior Op Med Cln Tm A Ad) OUTPATIENT [id number] /3 Left knee Euflexx ARA Leon 10/17 Released w/o Limitations [address] [place] [address] Group [facility])(W arrior Op Med Cln Tm A Ad) [address] [place] [address] Group [facility])(Fam melani Med Tm B Non-AD BCC) TELE CONSULT [id number] Notes Entered by: SHANNAN SANCHEZ 09 Dec 2017 1507 ------- ------- ------- ------- -- Network Results - Orthope dic Surgery 8 ARA FRAZIER 12/[address] [place] [address] Group [facility])(F amily Med Tm B Non-AD BCC) [address] [place] [address] Group [facility])(War rior Op Med Cln Tm A Ad) TELE CONSULT [id number] Notes Entered by: AMOS CHAVEZ 06 Jan 2018 1000 ------- ------- ------- ------- -- Sx: Vaginal itching and burning - Nicky ne - - tsg* BECKIECHRISTY Turner J 01/06 [facility])(W arrior Op Med Cln Tm A Ad) [facility])(Food Consultant ecology) OUTPATIENT [id number] cierra soto pt from [facility] HAI SELLERS 01/09 Released w/o Limitations [address] [place] [address] Group [facility])(G yhector gy) [address] [place] [address] [facility])(War rior Op Med Cln Tm A Ad) TELE CONSULT [id number] Notes Entered by: STACEY NORMAN 25 Jan 2018 0755 ------- ------- ------- ------- -- ER f/u/Roxy parmar/ CHRISTY BUTTS J 01/[address] [place] [address])(W arrior Op Med Cln Tm A Ad) [address] [place] [address])(Food Consultant ecology) OUTPATIENT [id number] f/u [id number] HAI SELLERS 01/25 Released w/o Limitations [address] [place] [address] [facility])(Delia fuentes gy) [address] [place] [address] [facility])(Food Consultant ecology) TELE CONSULT [id number] Notes Entered by: BHAVANA SELLERS 08 Feb 2018 1710 ------- ------- ------- ------- -- results HAI SELLERS 02/[address] [place] [address] [facility])(Delia fuentes gy) [address] [place] [address] [facility])(Food Consultant ecology) TELE CONSULT [id number] Notes Entered by: BHAVANA SELLERS 23 Feb 2018 0747 ------- ------- ------- ------- -- results DEVAN PARISI 02/23 Referred for Appointment [address] [place] [address] Jaime [facility]Delia fuentes gy) [address] [place] [address])(Food Consultant ecology) TELE CONSULT [id number] Notes Entered by: BHAVANA SELLERS 16 Mar 2018 1255 ------- ------- ------- ------- -- results OPAL PATEL 03/[address] [place] [address] Jaime [facility]Delia kahn) [address] [place] [address] Ja[facility])(Food Consultant ecology) TELE CONSULT [id number] Notes Entered by: BHAVANA SELLERS 19 Apr 2018 1735 ------- ------- ------- ------- -- results HAI SELLERS 04/[address] [place] [address] Jaime [facility]Delia kahn) [facility] Outpatient Encounter [id number] 6 06/12 [facility] Procedures Combined list of: 1) Procedures from Department of Veterans Affairs facilities going back up to thelast 18 months, not all [place] non-surgical procedures are included; 2) All procedures from the Department of Defense facilities. Procedure Procedure Type Code Date Perfomer Comments [facility] e TELE ASSESS & MGT SRV PROV QUAL NONPHYS HLTH CARE PRO TO EST PAT,PARENT,GUARD NOT ORIG REL ASSESS & MGT SRV PROV W/IN PREV 7 DAYS NOR LEAD ASSESS & MGT SRV/PX W/IN NXT 24 HR/SOON APT;5-10 MIN MED DIS 2017 DoD HANDLING AND/OR CONVEYANCE OF SPECIMEN FOR TRANSFER FROM THE OFFICE TO A LABORATORY 2017 DoD TELE ASSESS & MGT SRV PROV QUAL NONPHYS HLTH CARE PRO TO EST PAT,PARENT,GUARD NOT ORIG REL ASSESS & MGT SRV PROV W/IN PREV 7 DAYS NOR LEAD ASSESS & MGT SRV/PX W/IN NXT 24 HR/SOON APT;5-10 MIN MED DIS 2017 DoD ARTHROCENTESIS, ASPIRATION AND/OR INJECTION, MAJOR JOINT OR BURSA (EG, SHOULDER, HIP, KNEE, SUBACROMIAL BURSA); WITHOUT ULTRASOUND GUIDANCE 2017 DoD ARTHROCENTESIS, ASPIRATION AND/OR INJECTION, MAJOR JOINT OR BURSA (EG, SHOULDER, HIP, KNEE, SUBACROMIAL BURSA); WITHOUT ULTRASOUND GUIDANCE 2017 DoD HYALURONAN OR DERIVATIVE, EUFLEXXA, FOR INTRA-ARTICULAR INJECTION, PER DOSE 2017 DoD ARTHROCENTESIS, ASPIRATION AND/OR INJECTION, MAJOR JOINT OR BURSA (EG, SHOULDER, HIP, KNEE, SUBACROMIAL BURSA); WITHOUT ULTRASOUND GUIDANCE 2016 DoD ARTHROCENTESIS, ASPIRATION AND/OR INJECTION, MAJOR JOINT OR BURSA (EG, SHOULDER, HIP, KNEE, SUBACROMIAL BURSA); WITHOUT ULTRASOUND GUIDANCE 2016 DoD HYALURONAN OR DERIVATIVE, EUFLEXXA, FOR INTRA-ARTICULAR INJECTION, PER DOSE 2016 DoD TELE ASSESS & MGT SRV PROV QUAL NONPHYS HLTH CARE PRO TO EST PAT,PARENT,GUARD NOT ORIG REL ASSESS & MGT SRV PROV W/IN PREV 7 DAYS NOR LEAD ASSESS & MGT SRV/PX W/IN NXT 24 HR/SOON APT;5-10 MIN MED DIS 2015 DoD HYALURONAN OR DERIVATIVE, EUFLEXXA, FOR INTRA-ARTICULAR INJECTION, PER DOSE 2015 DoD ARTHROCENTESIS, ASPIRATION AND/OR INJECTION, MAJOR JOINT OR BURSA (EG, SHOULDER, HIP, KNEE, SUBACROMIAL BURSA); WITHOUT ULTRASOUND GUIDANCE 2015 DoD HYALURONAN OR DERIVATIVE, EUFLEXXA, FOR INTRA-ARTICULAR INJECTION, PER DOSE 2015 DoD SCREENING PAP[place]OLA[employer] SMEAR; OBTAINING, PREPARING AND CONVEYANCE OF CERVICAL OR VAGINAL SMEAR TO LABORATORY 2015 DoD TELE ASSESS & MGT SRV PROV QUAL NONPHYS HLTH CARE PRO TO EST PAT,PARENT,GUARD NOT ORIG REL ASSESS & MGT SRV PROV W/IN PREV 7 DAYS NOR LEAD ASSESS & MGT SRV/PX W/IN NXT 24 HR/SOON APT;5-10 MIN MED DIS 2015 DoD TELE ASSESS & MGT SRV PROV QUAL NONPHYS HLTH CARE PRO TO EST PAT,PARENT,GUARD NOT ORIG REL ASSESS & MGT SRV PROV W/IN PREV 7 DAYS NOR LEAD ASSESS & MGT SRV/PX W/IN NXT 24 HR/SOON APT;5-10 MIN MED DIS 2015 DoD TELE ASSESS & MGT SRV PROV QUAL NONPHYS HLTH CARE PRO TO EST PAT,PARENT,GUARD NOT ORIG REL ASSESS & MGT SRV PROV W/IN PREV 7 DAYS NOR LEAD ASSESS & MGT SRV/PX W/IN NXT 24 HR/SOON APT;5-10 MIN MED DIS 2015 DoD HYALURONAN OR DERIVATIVE, EUFLEXXA, FOR INTRA-ARTICULAR INJECTION, PER DOSE 2015 DoD HYALURONAN OR DERIVATIVE, EUFLEXXA, FOR INTRA-ARTICULAR INJECTION, PER DOSE 2015 DoD HYALURONAN OR DERIVATIVE, EUFLEXXA, FOR INTRA-ARTICULAR INJECTION, PER DOSE 2015 DoD TELE ASSESS & MGT SRV PROV QUAL NONPHYS HLTH CARE PRO TO EST PAT,PARENT,GUARD NOT ORIG REL ASSESS & MGT SRV PROV W/IN PREV 7 DAYS NOR LEAD ASSESS & MGT SRV/PX W/IN NXT 24 HR/SOON APT;5-10 MIN MED DIS 2014 DoD CERVICAL OR VAGINAL CANCER SCREENING; PELVIC AND CLINICAL BREAST EXAMINATION 2013 DoD TELE ASSESS & MGT SRV PROV QUAL NONPHYS HLTH CARE PRO TO EST PAT,PARENT,GUARD NOT ORIG REL ASSESS & MGT SRV PROV W/IN PREV 7 DAYS NOR LEAD ASSESS & MGT SRV/PX W/IN NXT 24 HR/SOON APT;5-10 MIN MED DIS 2013 DoD TELE ASSESS & MGT SRV PROV QUAL NONPHYS HLTH CARE PRO TO EST PAT,PARENT,GUARD NOT ORIG REL ASSESS & MGT SRV PROV W/IN PREV 7 DAYS NOR LEAD ASSESS & MGT SRV/PX W/IN NXT 24 HR/SOON APT;5-10 MIN MED DIS 2012 DoD TELE ASSESS & MGT SRV PROV QUAL NONPHYS HLTH CARE PRO TO EST PAT,PARENT,GUARD NOT ORIG REL ASSESS & MGT SRV PROV W/IN PREV 7 DAYS NOR LEAD ASSESS & MGT SRV/PX W/IN NXT 24H/SOON APT; 11-20 MIN MED DIS 2011 DoD SCREENING PAPANICOLAOU SMEAR; OBTAINING, PREPARING AND CONVEYANCE OF CERVICAL OR VAGINAL SMEAR TO LABORATORY 2009 DoD TELE ASSESS & MGT SRV PROV QUAL NONPHYS HLTH CARE PRO TO EST PAT,PARENT,GUARD NOT ORIG REL ASSESS & MGT SRV PROV W/IN PREV 7 DAYS NOR LEAD ASSESS & MGT SRV/PX W/IN NXT 24 HR/SOON APT;5-10 MIN MED DIS 2009 DoD TELE ASSESS & MGT SRV PROV QUAL NONPHYS HLTH CARE PRO TO EST PAT,PARENT,GUARD NOT ORIG REL ASSESS & MGT SRV PROV W/IN PREV 7 DAYS NOR LEAD ASSESS & MGT SRV/PX W/IN NXT 24H/SOON APT; 11-20 MIN MED DIS 2009 DoD DESTRUCTION (EG, LASER SURGERY, ELECTROSURGERY, CRYOSURGERY, CHEMOSURGERY, SURGICAL CURETTEMENT), OF BENIGN LESIONS OTHER THAN SKIN TAGS OR CUTANEOUS VASCULAR PROLIFERATIVE LESIONS; UP TO 14 LESIONS 2006 DoD CARDIOVASCULAR STRESS TEST USING MAXIMAL OR SUBMAXIMAL TREADMILL OR BICYCLE EXERCISE,CONTINUOUS ELECTROCARDIOGRAPHIC MONITORING,AND/OR PHARMACOLOGICAL STRESS;W SUPERVISION,INTERPRETA TION AND REPORT 2006 DoD SCREENING PAPANICOLAOU SMEAR; OBTAINING, PREPARING AND CONVEYANCE OF CERVICAL OR VAGINAL SMEAR TO LABORATORY 2006 DoD NONINVASIVE EAR OR PULSE OXIMETRY FOR OXYGEN SATURATION; SINGLE DETERMINATION 2005 DoD SELF-CARE/HOME MANAGMENT TRAIN (EG,ACT OF DAILY LIVING (ADL) &COMPENSAT TRAIN,MEAL PREPARATION,SAFETY PROCS,AND INSTRUCT IN USE OF ASST TECHNOLOGY DEV/ADPT EQUIP) DIR ONE-ON-ONE CONT,EA 15 MINUTES 2004 DoD SELF-CARE/HOME MANAGMENT TRAIN (EG,ACT OF DAILY LIVING (ADL) &COMPENSAT TRAIN,MEAL PREPARATION,SAFETY PROCS,AND INSTRUCT IN USE OF ASST TECHNOLOGY DEV/ADPT EQUIP) DIR ONE-ON-ONE CONT,EA 15 MINUTES 2004 DoD THERAPEUTIC PROCEDURE, 1 OR MORE AREAS, EACH 15 MINUTES; MASSAGE, INCLUDING EFFLEURAGE, PETRISSAGE AND/OR TAPOTEMENT (STROKING, COMPRESSION, PERCUSSION) 2004 DoD APPLICATION OF A MODALITY TO 1 OR MORE AREAS; ULTRASOUND, EACH 15 MINUTES 2004 DoD THERAPEUTIC PROCEDURE, 1 OR MORE AREAS, EACH 15 MINUTES; MASSAGE, INCLUDING EFFLEURAGE, PETRISSAGE AND/OR TAPOTEMENT (STROKING, COMPRESSION, PERCUSSION) 2004 DoD SELF-CARE/HOME MANAGMENT TRAIN (EG,ACT OF DAILY LIVING (ADL) &COMPENSAT TRAIN,MEAL PREPARATION,SAFETY PROCS,AND INSTRUCT IN USE OF ASST TECHNOLOGY DEV/ADPT EQUIP) DIR ONE-ON-ONE CONT,EA 15 MINUTES 2004 [facility] APPLICATION OF A MODALITY TO 1 OR MORE AREAS; ULTRASOUND, EACH 15 MINUTES 2004 [facility] SELF-CARE/HOME MANAGMENT TRAIN (EG,ACT OF DAILY LIVING (ADL) &COMPENSAT TRAIN,MEAL PREPARATION,SAFETY PROCS,AND INSTRUCT IN USE OF ASST TECHNOLOGY DEV/ADPT EQUIP) DIR ONE-ON-ONE CONT,EA 15 MINUTES 2003 [facility] THERAPEUTIC PROCEDURE, 1 OR MORE AREAS, EACH 15 MINUTES; THERAPEUTIC EXERCISES TO DEVELOP STRENGTH AND ENDURANCE, RANGE OF MOTION AND FLEXIBILITY 2003 [facility] POSTOPERATIVE FOLLOW-UP VISIT, NORMALLY INCLUDED IN THE SURGICAL PACKAGE, INDICATE THAT EVALUATION & MANAGEMENT SERVICE WAS PERFORMED DURING A POSTOPERATIVE PERIOD REASON RELATED ORIGINAL PROCEDURE 2003 [facility] UNLISTED SPECIAL SERVICE, PROCEDURE OR REPORT 2003 [facility] ARTHROCENTESIS, ASPIRATION AND/OR INJECTION, SMALL JOINT OR BURSA (EG, FINGERS, TOES); WITHOUT ULTRASOUND GUIDANCE 2002 [facility] INJECTION(S); SINGLE TENDON SHEATH, OR LIGAMENT, APONEUROSIS (EG, PLANTAR FASCIA) 2002 [facility] Non-Physician Phone Call To Patient/Provider Brief (5-10min) Non-Physician Phone Call To Patient/Provider Brief (5-10min) [id number]Supervised Specimen Handling / Transfer: Office To Lab -Supervised Specimen Handling / Transfer: Office To Lab [id number] 2017 HAI SELLERS Vaginal Wet [place] Vaginal Wet [place] 11165 2017 HAI SELLERS Vaginal DENISE Prep Vaginal DENISE Prep [id number] 2017 HAI SELLERS Non-Physician Phone Call To Patient/Provider Brief (5-10min) Non-Physician Phone Call To Patient/Provider Brief (5-10min) [id number] 2017 CHRISTY BUTTS Arthrocentesis Injection Of Knee Joint Arthrocentesis Injection Of Knee Joint 2017 ARA FRAZIER Hyaluronan or derivative, Euflexxa, for intra-articular injection, per dose 2017 ARA FRAZIER Patient's landmarks identified. Patient was positioned in a seated position landmarks were identified. A time out was performed, identifying the patient by name, procedure name and location. Knee positioned and then prepped in a sterile fashion. The area over the injection site was prepped with chlorprep. 2.25cc 1% sodium hyaluronate [Euflexxa] was injected into the knee under sterile technique using a 25 G 1.5 inch needle. Pt tolerated procedure well. No reaction after the injection observed. DoD Arthrocentesis Injection Of Knee Joint Arthrocentesis Injection Of Knee Joint 2017 ARA FRAZIER DoD Hyaluronan or derivative, Euflexxa, for intra-articular injection, per dose 2017 ARA FRAZIER Patient's landmarks identified. Patient was positioned in a seated position landmarks were identified. A time out was performed, identifying the patient by name, procedure name and location. Knee positioned and then prepped in a sterile fashion. The area over the injection site was prepped with chlorprep. 2.25cc 1% sodium hyaluronate [Euflexxa] was injected into the knee under sterile technique using a 25 G 1.5 inch needle. Pt tolerated procedure well. No reaction after the injection observed. DoD Hyaluronan or derivative, Euflexxa, for intra-articular injection, per dose 2017 ARA FRAZIER Informed consent obtained. Patient's landmarks identified. Patient was positioned in a seated position landmarks were identified. A time out was performed, identifying the patient by name, procedure name and location. Knee positioned and then prepped in a sterile fashion. The area over the injection site was prepped with chlorprep. 2.25cc 1% sodium hyaluronate [Euflexxa] was injected into the knee under sterile technique using a 25 G 1.5 inch needle. Pt tolerated procedure well. No reaction after the injection observed. DoD Arthrocentesis Injection Of Knee Joint Arthrocentesis Injection Of Knee Joint 2017 ARA FRAZIER DoD Arthrocentesis Injection Of Knee Joint Arthrocentesis Injection Of Knee Joint 2016 ARA FRAZIER Hyaluronan or derivative, Euflexxa, for intra-articular injection, per dose 2016 ARA FRAZIER Informed consent obtained. Patient's landmarks identified. Patient was positioned in a seated position landmarks were identified. A time out was performed, identifying the patient by name, procedure name and location. Knee positioned and then prepped in a sterile fashion. The area over the injection site was prepped with chlorprep. 2.25cc 1% sodium hyaluronate [Euflexxa] was injected into the knee under sterile technique using a 25 G 1.5 inch needle. Pt tolerated procedure well. No reaction after the injection observed. DoD Hyaluronan or derivative, Euflexxa, for intra-articular injection, per dose 2016 ARA FRAZIER Informed consent obtained. Patient's landmarks identified. Patient was positioned in a seated position landmarks were identified. A time out was performed, identifying the patient by name, procedure name and location. Knee positioned and then prepped in a sterile fashion. The area over the injection site was prepped with chlorprep. 2.25cc 1% sodium hyaluronate [Euflexxa] was injected into the knee under sterile technique using a 25 G 1.5 inch needle. Pt tolerated procedure well. No reaction after the injection observed. DoD Arthrocentesis Injection Of Knee Joint Arthrocentesis Injection Of Knee Joint 2016 ARA FRAZIER Hyaluronan or derivative, Euflexxa, for intra-articular injection, per dose 2016 ARA FRAZIER Informed consent obtained. Patient's landmarks identified. Patient was positioned in a seated position landmarks were identified. A time out was performed, identifying the patient by name, procedure name and location. Knee positioned and then prepped in a sterile fashion. The area over the injection site was prepped with chlorprep. 2.25cc 1% sodium hyaluronate [Euflexxa] was injected into the knee under sterile technique using a 25 G 1.5 inch needle. Pt tolerated procedure well. No reaction after the injection observed. DoD Arthrocentesis Injection Of Knee Joint Arthrocentesis Injection Of Knee Joint 2016 ARA FRAZIER Non-Physician Phone Call To Patient/Provider Brief (5-10min) Non-Physician Phone Call To Patient/Provider Brief (5-10min) [id number] 2015 ARA LUNA DoD Hyaluronan or derivative, Euflexxa, for intra-articular injection, per dose 2015 ARA FARZIER Patient's landmarks identified. Patient was positioned in a seated position landmarks were identified. A time out was performed, identifying the patient by name, procedure name and location. Knee positioned and then prepped in a sterile fashion. The area over the injection site was prepped with chlorprep. 2.25cc 1% sodium hyaluronate [Euflexxa] was injected into the knee under sterile technique using a 25 G 1.5 inch needle. Pt tolerated procedure well. No reaction after the injection observed. [place] Arthrocentesis Injection Of Knee Joint Arthrocentesis Injection Of Knee Joint 2015 ARA FRAZIER Patient Counseling Medical Management Individual Patient Patient Counseling Medical Management Individual Patient [id number] 2015 ARA FRAZIER Arthrocentesis Injection Of Knee Joint Arthrocentesis Injection Of Knee Joint 2015 ARA FRAZIER Hyaluronan or derivative, Euflexxa, for intra-articular injection, per dose 2015 ARA FRAZIER Patient's landmarks identified. Patient was positioned in a seated position landmarks were identified. A time out was performed, identifying the patient by name, procedure name and location. Knee positioned and then prepped in a sterile fashion. The area over the injection site was prepped with chlorprep. 2.25cc 1% sodium hyaluronate [Euflexxa] was injected into the knee under sterile technique using a 25 G 1.5 inch needle. Pt tolerated procedure well. No reaction after the injection observed. [place] Hyaluronan or derivative, Euflexxa, for intra-articular injection, per dose 2015 ARA FRAZIER Informed consent obtained. Patient's landmarks identified. Patient was positioned in a seated position landmarks were identified. A time out was performed, identifying the patient by name, procedure name and location. Knee positioned and then prepped in a sterile fashion. The area over the injection site was prepped with chlorprep. 2.25cc 1% sodium hyaluronate [Euflexxa] was injected into the knee under sterile technique using a 25 G 1.5 inch needle. Pt tolerated procedure well. No reaction after the injection observed. [place] Arthrocentesis Injection Of Knee Joint Arthrocentesis Injection Of Knee Joint 2015 ARA FRAZIER Screening papanicolaou smear; obtaining, preparing and conveyance of cervical or vaginal smear to laboratory 2015 HAI SELLERS Non-Physician Phone Call To Patient/Provider Brief (5-10min) Non-Physician Phone Call To Patient/Provider Brief (5-10min) [id number] 2015 TRINITY RIVERA Non-Physician Phone Call To Patient/Provider Brief (5-10min) Non-Physician Phone Call To Patient/Provider Brief (5-10min) [id number] 2015 TRINITY RIVERA Non-Physician Phone Call To Patient/Provider Brief (5-10min) Non-Physician Phone Call To Patient/Provider Brief (5-10min) [id number] 2015 TRINITY RIVERA Hyaluronan or derivative, Euflexxa, for intra-articular injection, per dose 2015 ARA FRAZIER Arthrocentesis Injection Of Knee Joint Arthrocentesis Injection Of Knee Joint 2015 ARA FRAZIER Informed consent obtained with the first injection. Patient's landmarks identified. Patient was positioned in a seated position landmarks were identified. A time out was performed, identifying the patient by name, procedure name and location. Knee positioned and then prepped in a sterile fashion. The area over the injection site was prepped with chlorprep. 2.25cc 1% sodium hyaluronate [Euflexxa] was injected into the left knee under sterile technique using a 25 G 1.5 inch needle. Pt tolerated procedure well. No reaction after the injection observed. [place] Hyaluronan or derivative, Euflexxa, for intra-articular injection, per dose 2015 ARA FRAZIER Informed consent obtained with the first injection. Patient's landmarks identified. Patient was positioned in a seated position landmarks were identified. A time out was performed, identifying the patient by name, procedure name and location. Knee positioned and then prepped in a sterile fashion. The area over the injection site was prepped with chlorprep. 2.25cc 1% sodium hyaluronate [Euflexxa] was injected into the left knee under sterile technique using a 25 G 1.5 inch needle. Pt tolerated procedure well. No reaction after the injection observed. [place] Arthrocentesis Injection Of Knee Joint Arthrocentesis Injection Of Knee Joint 2015 ARA FRAZIER Hyaluronan or derivative, Euflexxa, for intra-articular injection, per dose 2015 ARA FRAZIER Informed consent obtained. Patient's landmarks identified. Patient was positioned in a seated position landmarks were identified. A time out was performed, identifying the patient by name, procedure name and location. Knee positioned and then prepped in a sterile fashion. The area over the injection site was prepped with chlorprep. 2.25cc 1% sodium hyaluronate [Euflexxa] was injected into the left knee under sterile technique using a 25 G 1.5 inch needle. Pt tolerated procedure well. No reaction after the injection observed. [facility] Arthrocentesis Injection Of Knee Joint Arthrocentesis Injection Of Knee Joint [id number] 2015 ARA FRAZIER [facility] Non-Physician Phone Call To Patient/Provider Brief (5-10min) Non-Physician Phone Call To Patient/Provider Brief (5-10min) [phone] TRINITY RIVERA [facility] Cervical or vaginal cancer screening; pelvic and clinical breast examination 2013 MIR LEMA [facility] Non-Physician Phone Call To Patient/Provider Brief (5-10min) Non-Physician Phone Call To Patient/Provider Brief (5-10min) [id number] 2013 NERI DUMONT [facility] Non-Physician Phone Call To Patient/Provider Brief (5-10min) Non-Physician Phone Call To Patient/Provider Brief (5-10min) [id number] 2012 RADHA MAE [facility] Non-Physician Phone Call To Pt/Provider Intermed (11-20 min) Non-Physician Phone Call To Pt/Provider Intermed (11-20 min) [id number] 2011 KRISTIE ANTONIO [facility] Screening papanicolaou smear; obtaining, preparing and conveyance of cervical or vaginal smear to laboratory 2009 TRISTIN LARSEN [facility] Non-Physician Phone Call To Patient/Provider Brief (5-10min) Non-Physician Phone Call To Patient/Provider Brief (5-10min) [id number] 2009 COREY PERAZA [facility] Non-Physician Phone Call To Pt/Provider Intermed (11-20 min) Non-Physician Phone Call To Pt/Provider Intermed (11-20 min) [id number] 2009 AGUILAR SIDDIQUI [facility] Dermatological Surgery Cryotherapy Dermatological Surgery Cryotherapy [id number] 2006 GRETCHEN ZAVALA [facility] Cardiac Stre Test, Phys. Supervision, Interp. And Report Cardiac Stress Test, Phys. Supervision, Interp. And Report [id number] 2006 BRIGHT MANZO [facility] Screening papanicolaou smear; obtaining, preparing and conveyance of cervical or vaginal smear to laboratory 2006 YUNIOR CHADWICK [facility] Pulse Oximetry Pulse Oximetry 02658 2005 KRISTIE MANCILLA Albuterol, up to 2.5 mg and ipratropium bromide, up to 0.5 mg, non-compounded inhalation solution, administered through DME 2005 KRISTIE MANCILLA Influenza Split Virus Vaccine Age 3+ Years Intramuscular 2004 CHASE MASTERS Physical Therapy Ma age Physical Therapy Massage 94131 2004 DANELLE PACHECO Modalities Ultrasound Modalities Ultrasound 74696 2004 DANELLE PACHECO Training And Self-Care Skills Training And Self-Care Skills 17560 2004 DANELLE PACHECO Physical Therapy Tn age Physical Therapy Massage 98462 2004 DANELLE PACHECO Modalities Ultrasound Modalities Ultrasound 99424 2004 DANELLE PACHECO Training And Self-Care Skills Training And Self-Care Skills 55400 2004 DANELLE PACHECO Modalities Ultrasound Modalities Ultrasound 78201 2004 DANELLE PACHECO Training And Self-Care Skills Training And Self-Care Skills 47793 2004 DANELLE PACHECO Physical Therapy Tn age Physical Therapy Massage 56747 2004 DANELLE PACHECO Training And Self-Care Skills Training And Self-Care Skills 14591 2004 DANELLE PACHECO Physical Therapy Tn age Physical Therapy Massage 63529 2004 DANELLE PACHECO Modalities Ultrasound Modalities Ultrasound 62254 2004 DANELLE PACHECO Training And Self-Care Skills Training And Self-Care Skills 29650 2004 DANELLE PACHECO DoD Modalities Ultrasound Modalities Ultrasound 27600 2004 DANELLE PACHECO DoD Physical Therapy Ma age Physical Therapy Massage 53985 2004 DANELLE PACHECO R DoD Training And Self-Care Skills Training And Self-Care Skills 80212 2004 DANELLE PACHECO R DoD Modalities Ultrasound Modalities Ultrasound 45143 2004 ORION PACHECOT R DoD Physical Therapy Ma age Physical Therapy Massage [id number] 2004 [facility] Physical Therapy [place] age Physical Therapy Massage [id number] 2004 DANELLE PACHECO R DoD Training And Self-Care Skills Training And Self-Care Skills [id number] 2004 DANELLE PACHECO R DoD Modalities Ultrasound Modalities Ultrasound 19012 2004 DANELLE PACHECO R [facility] [place] age Physical Therapy Massage [id number] 2003 DANELLE PACHECO Training And Self-Care Skills Training And Self-Care Skills [id number] 2003 DANELLE PACHECO Performing Range Of Motion Evaluation Of Hand Performing Range Of Motion Evaluation Of Hand 60095 2003 DANELLE PACHECO Occupational Therapy Evaluation Occupational Therapy Evaluation [id number] 2003 BRIANNA SIMENTAL DoD Exercises A isted Exercises For ROM Exercises Assisted Exercises For ROM 60282 2003 BRIANNA SIMENTAL 8 min AROM per protocol DoD No data available for this section Ambulatory Pharmacy Social History Combined list of available smoking, tobacco, and other social history from [facility] facilities. Social History Type Response Date Comment Sourc e This section is an empty social history section. DoD Assessment and Plan Combined list of future care activities from [facility] facilities (e.g., assessment and plan notes, appointments, orders, and referrals). Additional future care activities may be listed in the Plan of Care section. Result Assessment and Plan Date Source Assessment and Plan No data available for this section 03/13/2025 Ambulatory Pharmacy Functional Status Combined list of recent functional and cognitive assessments recorded at [facility] Functional [place] Measurement (FIM) Scale: 1 = Total Assistance (Subject = 0% +), 2 = Maximal Assistance (Subject = 25% +), 3 = Moderate Assistance (Subject = 50% +), 4 = Minimal Assistance (Subject = 75% +), 5 = Supervision, 6 = Modified [place] (Device), 7 = Complete [place] (Timely, Safely). Assessment Date/Time Source Assessment Type Assessment Skill Assessment Score Assessment Details No data available for this section
== END 2025-03-13 10:36 | disposition home or self-care (01) ==
LOC: ANHIMG 10:38
PROVIDERS: PCP Physician Assistant; Visit Provider Physician Assistant
DX: Z12.31 Encounter for screening mammogram for malignant neoplasm of breast (principal)
CPT/HCPCS: 77063; 77067

== ENCOUNTER 2025-06-20 12:30 | Outpatient (RCR) | payer MEDICARE, OTHER, SELFPAY ==
--- NOTE | 2025-03-22 17:07 | PTOPEVAL1 ---
Assessment and note entered by Natacha Venegas, PT Evaluation Information Assessment Status Evaluation Diagnosis Poor Balance (R26.89) ICD-10 Condition Codes (PT) Repeated falls R29.6,Abnormalities of gait and mobility R26.9,Weakness R53.1 Subjective Information Pt reports she was in the ER a few weeks ago for a UTI. Did an MRI of the brain at that time and found enlarged vessels going toward her brain. ER suggested neurology and PCP has not followed up on that yet. Vertigo she has had in the past seems to have gotten better. Reports was able to fly recently and didn't get motion sick. Reports son visited and put railings up on her steps into the home, and put some rails in bathtub . Reported Pain Level Pain Score 0: Self Report Assessment PT Clinical Summary Pt is known to therapist from prior plans of care. She presents with increased fall frequency recently though her gait is much the same as prior visits. She does also continue to show high fall risk with the Tinetti balance test, greatly increased gait abnormalities with fatigue in 2 min walk test, poor center of gravity awareness and ability to correct, and poor ankle stability. She reports no dizziness and has a negative vertebral artery test bilat. Pt will benefit from physical therapy to address center of gravity awareness, ankle stability and control, improved strength and endurance with gait and overall increased functional independence and safety. Plan of Care Interventions Gait Training,Neuro Re-education,Patient/Caregiver Education,Therapeutic Activities,Therapeutic Exercise,Self-Care/Home Management PT Services Indicated Yes Treatment Frequency and 2x weekly x 10 visits Duration These treatments will address the objective and functional deficits as defined above. The patient will be advanced safely and appropriately in order for the patient to progress towards his/her prior level of function. Additional exercises will be introduced and as well as a comprehensive home exercise program upon discharge, if needed, ?to ensure carryover of functional gains achieved in the clinic. This treatment plan has been reviewed and agreement upon by the patient.
--- NOTE | 2025-03-22 17:08 | OPREHPOC ---
Outpatient Therapy Plan of Care This is a Multidisciplinary Plan of Care that may contain components documented by all disciplines (PT, OT, and ST.) PT Problem 1 PT Problem #1 Knowledge Deficit PT Goal 1 Goal / Goal Update Pt will be independent in HEP Pt will verbalize understanding of diagnosis and prognosis Target Visit 5 PT Problem 2 PT Problem #2 Impaired Balance PT Goal 1 Goal / Goal Update Pt will demonstrate a Tinetti score of 20 or greater to show improvement in balance Target Visit 5 PT Goal 2 Goal / Goal Update Pt will demonstrate a Tinetti score placing her in the low fall risk category PT Problem 3 PT Problem #3 Impaired Gait PT Goal 1 Goal / Goal Update Pt will demonstrate 2 min walk without any difficulty with foot clearance Target Visit 10
--- NOTE | 2025-04-04 11:35 | PCPTNOTE ---
Patient did not show up for scheduled appointment this date.
--- NOTE | 2025-04-25 15:56 | PTOPPROG ---
Assessment and note entered by Natacha Venegas, PT Evaluation Information Assessment Status Progress Diagnosis Poor Balance (R26.89) ICD-10 Condition Codes (PT) Repeated falls R29.6,Abnormalities of gait and mobility R26.9,Weakness R53.1 Subjective Information Pt reports getting up in the morning doesn't feel like she is swaying like she was or leaning against the bed. Primary referred to neurology and hasn't received a phone call yet. Was about a week and a half ago. No dizziness or motion sickness recently Did have a fall yesterday in [employer] lot but thinks was walking down hill. Assessment PT Clinical Summary Pt has attended therapy consistently for balance and gait abnormality. Today was also tested for vertigo with negative results. Pt demonstrates improvement in static balance activities but cont to be unable to balance with dynamic activities. Also she appears to have less than average knee strength with functional motions such as isolated step-ups and lunge>return activities. Isolated testing of ankle strength (save plantarflexion) appears WNL. She reports significant difficulty navigating downward slopes as well. Pt reports she has followed up with neurology as was discussed at [facility] and in previous plan of care with this patient. Therapy has been progressing in strength and stability training though progress appears slow. She does show increased Tinettie score from 11 to 18 though she remains in the high risk for falls category. Will benefit from continued therapy to continue progressing dyanmic strength and stability activities for improved balance and function Plan of Care Interventions Gait Training,Neuro Re-education,Patient/Caregiver Education,Therapeutic Activities,Therapeutic Exercise,Self-Care/Home Management PT Services Indicated Yes Treatment Frequency and 1-2x weekly x 10 visits Duration These treatments will address the objective and functional deficits as defined above. The patient will be advanced safely and appropriately in order for the patient to progress towards his/her prior level of function. Additional exercises will be introduced and as well as a comprehensive home exercise program upon discharge, if needed, ?to ensure carryover of functional gains achieved in the clinic. This treatment plan has been reviewed and agreement upon by the patient.
--- NOTE | 2025-05-31 15:28 | PTOPPROG ---
Assessment and note entered by Natacha Venegas, PT Evaluation Information Assessment Status Progress Diagnosis Poor Balance (R26.89) ICD-10 Condition Codes (PT) Repeated falls R29.6,Abnormalities of gait and mobility R26.9,Weakness R53.1 Subjective Information Pt still is questionable about walking downhill, feels like body wants to go faster and faster. Missed the bottom step going outside but wasn't hurt. Feels pretty good walking around. Assessment PT Clinical Summary Pt has attended therapy consistently for balance and gait difficulty. She continues to slowly progress with her balance with her Tinetti scores, and her gait quality. She cont to have difficulty controlling her forward momentum with downhill slopes, has difficulty maintaining appropriate gait when not focused straight ahead, and over time has demonstrated significant instability on LLE effecting her patterns with single limb stances, and significant gastroc weakness effecting her control of forward center of gravity . She will benefit from continued therapy to continue progression of strengthening and dynamic balance to reduce fall risk. Plan of Care Interventions Gait Training,Neuro Re-education,Patient/Caregiver Education,Therapeutic Activities,Therapeutic Exercise,Self-Care/Home Management PT Services Indicated Yes Treatment Frequency and 2x weekly x 20 visits Duration These treatments will address the objective and functional deficits as defined above. The patient will be advanced safely and appropriately in order for the patient to progress towards his/her prior level of function. Additional exercises will be introduced and as well as a comprehensive home exercise program upon discharge, if needed, ?to ensure carryover of functional gains achieved in the clinic. This treatment plan has been reviewed and agreement upon by the patient.
--- NOTE | 2025-05-31 15:28 | OPREHPOC ---
Outpatient Therapy Plan of Care This is a Multidisciplinary Plan of Care that may contain components documented by all disciplines (PT, OT, and ST.) PT Problem 1 PT Problem #1 Knowledge Deficit PT Goal 1 Goal / Goal Update Pt will be independent in HEP Pt will verbalize understanding of diagnosis and prognosis Target Visit 5 Progress Met PT Problem 2 PT Problem #2 Impaired Balance PT Goal 1 Goal / Goal Update Pt will demonstrate a Tinetti score of 20 or greater to show improvement in balance Target Visit 5 Progress Met PT Goal 2 Goal / Goal Update Pt will demonstrate a Tinetti score placing her in the low fall risk category Target Visit 20 PT Problem 3 PT Problem #3 Impaired Gait PT Goal 1 Goal / Goal Update Pt will demonstrate 2 min walk without any difficulty with foot clearance Target Visit 20 PT Problem 4 PT Problem #4 Impaired Gait PT Goal 1 Goal / Goal Update Pt will demonstrate normalized base of support with gait of 300 ft or greater PT Problem 5 PT Problem #5 Impaired Strength PT Goal 1 Goal / Goal Update Gastrocs will demonstrate 3+/5 strength to improve balance and mobility Target Visit 40
--- NOTE | 2025-06-21 15:15 | PCPTNOTE ---
Pt cancelled scheduled appointment this date with no reason given for cancellation.
== END 2025-06-20 23:59 | disposition home or self-care (01) ==
LOC: ANHHIPT 12:30
PROVIDERS: PCP Physician Assistant; Visit Provider Physician Assistant
DX: R26.89 Other abnormalities of gait and mobility (principal); R29.6 Repeated falls; R53.1 Weakness
CPT/HCPCS: 97110; 97112; 97162; 97750

== ENCOUNTER 2025-06-27 07:59 | Outpatient (RCR) | payer MEDICARE, OTHER, SELFPAY ==
--- NOTE | 2025-06-27 14:00 | PTOPDC ---
Assessment and note entered by Natacha Venegas, PT Evaluation Information Assessment Status Discharge Diagnosis Poor Balance (R26.89) ICD-10 Condition Codes (PT) Repeated falls R29.6,Abnormalities of gait and mobility R26.9,Weakness R53.1 Subjective Information Pt reports her walking is doing better. Feels so- so walking on inclines Reported Pain Level Pain Score 0: Self Report Assessment PT Clinical Summary Pt has attended consistently 28 visits and while appears to have made some progress in quality of movement, is still significantly limited in her dynamic balance especially with multitasking. Pt saw neurologist earlier this week, and received MRIs and imaging. According to neurology, MRI shows chronic changes but also reported the CT shows possibly increased fluid which can effect walking. Neurology suggested neurosurgery consult which patient has not made appt for yet. It was decided to close this POC in favor of pursuing specialists and possibly returning to therapy after intervention has been initiated. Thus we are discharging patient for maximal benefit at this time. Plan of Care PT Services Indicated No
== END 2025-06-27 14:32 | disposition home or self-care (01) ==
LOC: ANHHIPT 07:59
PROVIDERS: PCP Physician Assistant; Visit Provider Physician Assistant
DX: R26.89 Other abnormalities of gait and mobility (principal); R29.6 Repeated falls; R53.1 Weakness
CPT/HCPCS: 97110; 97112; 97750